=== PATIENT | female | born 1950 | race Caucasian/White ===

== ENCOUNTER 2019-05-08 09:38 | Emergency (ER) | payer BC, MEDICARE ==
--- NOTE | 2019-05-08 10:09 | ED ---
Female Urogenital HPI - General Chief complaint: Urogenital Stated complaint: possible UTI Time Seen by Provider: 05/08/19 10:07 Source: patient Mode of arrival: ambulatory Limitations: no limitations - Related Data Allergies Allergy/AdvReac Type Severity Reaction Status Date / Time Sulfa (Sulfonamide Allergy Swelling Verified 05/08/19 09:55 Antibiotics) Review of Systems ROS Statement: Those systems with pertinent positive or pertinent negative responses have been documented in the HPI. ROS Other: All systems not noted in ROS Statement are negative. Past Medical History Past Medical History: Cancer Additional Past Medical History / Comment(s): Chronic UTI, Breast CA History of Any Multi-Drug Resistant Organisms: None Reported Past Surgical History: Breast Surgery Past Psychological History: No Psychological Hx Reported Smoking Status: Never smoker Past Alcohol Use History: Rare Past Drug Use History: None Reported General Exam Limitations: no limitations Course Vital Signs 05/08/19 09:50 Temperature 97.8 F Pulse Rate 94 Respiratory 18 Rate Blood Pressure 143/73 O2 Sat by Pulse 98 Oximetry Disposition Referrals: Bridgette Chapman MD [Primary Care Provider] - 1-2 days
[2019-05-08] MEDS ORDERED: Acetaminophen-Codeine 300-30mg TAB PO STA (10:17)
--- NOTE | 2019-05-08 10:22 | ED ---
Female Urogenital HPI - General Chief complaint: Urogenital Stated complaint: possible UTI Time Seen by Provider: 05/08/19 10:07 Source: patient Mode of arrival: ambulatory Limitations: no limitations - History of Present Illness Initial comments: Patient is 69-year-old female with history of chronic UTIs presenting to emergency Department with a chief complaint of a possible UTI. 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 She states that she saw Dr. Mark recently who treated her for a vaginal yeast infection and said. Patient states that her symptoms have not resolved. Patient does report increased suprapubic pressure, increased frequency, urgency and dysuria. Denies any hematuria, hematochezia or melena. Patient states that she is looking for another surgical services assistant who would repair the possible fistula. Patient denies any night sweats fevers or chills. Does report taking ibuprofen at home with minimal approval for discomfort. Denies any nausea or vomiting diarrhea. - Related Data Previous Rx's Medication Instructions Recorded Cephalexin [Keflex] 500 mg PO Q6HR #40 cap 05/08/19 Allergies Allergy/AdvReac Type Severity Reaction Status Date / Time Sulfa (Sulfonamide Allergy Swelling Verified 05/08/19 09:55 Antibiotics) Review of Systems ROS Statement: Those systems with pertinent positive or pertinent negative responses have been documented in the HPI. ROS Other: All systems not noted in ROS Statement are negative. Past Medical History Past Medical History: Cancer Additional Past Medical History / Comment(s): Chronic UTI, Breast CA History of Any Multi-Drug Resistant Organisms: None Reported Past Surgical History: Breast Surgery Past Psychological History: No Psychological Hx Reported Smoking Status: Never smoker Past Alcohol Use History: Rare Past Drug Use History: None Reported General Exam Limitations: no limitations General appearance: alert, in no apparent distress Head exam: Present: atraumatic, normocephalic, normal inspection Eye exam: Present: normal appearance, PERRL, EOMI Pupils: Present: normal accommodation ENT exam: Present: normal exam, mucous membranes moist Neck exam: Present: normal inspection, full ROM Respiratory exam: Present: normal lung sounds bilaterally Cardiovascular Exam: Present: regular rate, normal rhythm, normal heart sounds GI/Abdominal exam: Present: soft, tenderness (Mild suprapubic tenderness). Absent: distended, guarding, rebound Extremities exam: Present: normal inspection, full ROM Back exam: Present: normal inspection, full ROM. Absent: CVA tenderness (R), CVA tenderness (L) Neurological exam: Present: alert, oriented X3 Psychiatric exam: Present: normal affect, normal mood Skin exam: Present: warm, dry, intact, normal color Course Vital Signs 05/08/19 09:50 Temperature 97.8 F Pulse Rate 94 Respiratory 18 Rate Blood Pressure 143/73 O2 Sat by Pulse 98 Oximetry Medical Decision Making - Medical Decision Making Patient is a 69-year-old female with history of recurrent UTIs presenting to the emergency department with a chief complaint of possible UTI. Patient does have urinary symptoms. On exam patient does have some suprapubic tenderness. No CVA tenderness. Urine shows positive nitrates, leukocyte esterase and white blood cells. Patient will be treated with a single dose of Rocephin and a 10 day course of Keflex. Patient is usually positive for E. coli. Urine culture pending. I do not suspect pyelonephritis. Patient most likely has urethritis or cystitis. Patient advised to follow-up with a scale clerk for the rectovaginal fistula. Strict return parameters were thoroughly discussed with patient was understanding and agreeable. Case discussed with physician. - Lab Data Lab Results 05/08/19 Range/Units 10:15 Urine Color Light Yellow Urine Appearance Turbid H (Clear) Urine pH 6.0 (5.0-8.0) Ur Specific [place] 1.024 (1.001-1.035) Urine Protein 1+ H (Negative) Urine Glucose (UA) 4+ H (Negative) Urine Ketones Trace H (Negative) Urine Blood Moderate H (Negative) Urine Nitrite Positive H (Negative) Urine Bilirubin Negative (Negative) Urine Urobilinogen <2.0 (<2.0) mg/dL Ur Leukocyte Esterase Large H (Negative) Urine RBC 71 H (0-5) /hpf Urine WBC >182 H (0-5) /hpf Urine WBC Clumps Many H (None) /hpf Urine Bacteria Occasional H (None) /hpf Urine Mucus Rare H (None) /hpf Disposition Clinical Impression: Urinary tract infection Disposition: HOME SELF-CARE Condition: Stable Instructions (If sedation given, give patient instructions): Urinary Tract Infection in Women (ED) Additional Instructions: Please take prescribed medication as directed. Please follow up primary care. Please return to emergency department if symptoms worsen. Prescriptions: Cephalexin [Keflex] 500 mg PO Q6HR #40 cap Is patient prescribed a controlled substance at d/c from ED?: No Referrals: Bridgette Chapman MD [Primary Care Provider] - 1-2 days Blue Meza MD [STAFF PHYSICIAN] - 1-2 days Time of Disposition: 11:32
[2019-05-08 11:06] LABS: Appearance,Urine Turbid (Clear); Bacteria,Urine Occasional /hpf; Bilirubin,Urine Negative (Negative); Blood,Urine Moderate (Negative); Color,Urine Light Yellow; Glucose,Urine (UA) 4+ (Negative); Ketones,Urine Trace (Negative); Leukocyte Esterase,Urine Large (Negative); Mucus,Urine Rare /hpf; Nitrite,Urine Positive (Negative); Protein,Urine 1+ (Negative); RBC,Urine 71 /hpf (0-5); Specific Gravity,Urine 1.024 (1.001-1.035); Urobilinogen,Urine <2.0 mg/dL (<2.0); WBC,Urine >182 /hpf (0-5)
[2019-05-08] MEDS ORDERED: cefTRIAXone 1,000 MG VIAL (IM USE) IM STA (11:30)
[2019-05-08 12:03] VITALS: BP 123/78; PULSE 77; RESP 19; TEMP 98.9
== END 2019-05-08 12:03 | disposition home or self-care (01) ==
LOC: EC 09:38
DX: N39.0 Urinary tract infection, site not specified (principal); Z88.2 Allergy status to sulfonamides; Z85.3 Personal history of malignant neoplasm of breast
CPT/HCPCS: 81001; 87086; 87077; 87186; 99283; 96372; J0696

== ENCOUNTER → 2019-06-24 | Outpatient (CLI) | payer MEDICARE ==
--- NOTE | 2019-06-24 14:04 | US ---
EXAMINATION TYPE: US thyroid st tissue head/neck DATE OF EXAM: 06/24/2019 COMPARISON: NONE CLINICAL HISTORY: E04.1 Nontoxic single thyroid nodule. GLAND SIZE: Right Lobe: 4.5 x 1.1 x1.4 cm Overall Parenchyma: homogenous Left Lobe: 4.7 x 1.7 x 2.0 cm Overall Parenchyma: homogeneous Isthmus Thickness: 0.4 cm NODULES RIGHT: # of nodules measured on right: 0 LEFT: # of nodules measured on left: 3 1. 2.3 X 1.5 x 1.8 cm hypoechoic mixed nodule at the lower pole with well-defined margins; . This nodule is wider than tall and shows intranodular vascularity. Prior size: no prior 2. 0.8 X 0.6 x 0.8 cm hypoechoic solid nodule at the lower pole with well-defined margins; present w ith microcalcifications. This nodule is wider than tall and shows intranodular vascularity. Prior size: no prior 3. 0.9 X 0.5 x 0.5 cm hypoechoic solid nodule at the lower pole with well-defined margins; . This n odule is wider than tall and shows intranodular vascularity. Prior size: no prior ISTHMUS: # of nodules measured in the isthmus: 0 Bilateral neck scanned, no evidence of lymphadenopathy. Nodules as described. IMPRESSION: 1. Large left lobe thyroid nodule. 2. Additional smaller subcentimeter nodules on the left
== END | disposition home or self-care (01) ==
LOC: RADUSWWP 13:38
PROVIDERS: ATTEND Nurse Practitioner
DX: E04.2 Nontoxic multinodular goiter (principal)
CPT/HCPCS: 76536

== ENCOUNTER 2019-07-16 20:05 | Emergency (ER) | payer MEDICARE ==
[2019-07-16 20:10] VITALS: TEMP 97.9
[2019-07-16] MEDS ORDERED: SODIUM CHLORIDE 0.9% 1,000 ML IV ONE (20:35)
[2019-07-16] MEDS ORDERED: ONDANSETRON 4 MG/2 ML VIAL IVP STA (20:41)
[2019-07-16] MEDS ORDERED: MORPHINE SULFATE 2 MG/ML SYRINGE IVP STA (20:41)
--- NOTE | 2019-07-16 20:42 | ED ---
General Adult HPI - General Chief complaint: Vaginal Bleeding Stated complaint: Vaginal Bleeding Time Seen by Provider: 07/16/19 20:16 Source: patient Mode of arrival: ambulatory Limitations: no limitations - History of Present Illness Initial comments: 69-year-old female patient presents to the emergency department today for evaluation of possible hematuria or vaginal bleeding. Patient has a known rectal vaginal fistula, states that she has had this for years but is recently started to cause her discomfort and pain to the vaginal region. Patient states that she hasn't working with the surgeon for possible resolution to this. She states that today she was taking a warm sitz bath when she noticed a blood clot had passed in the tub. States that whenever she urinates it is dark red in color and she is unsure where the bleeding is coming from. Patient states that she has had multiple urinary tract infections over the last year. States she is currently taking Keflex for a UTI. She denies any flank pain. Denies fever or chills. Denies any abdominal pain. Denies any use of anticoagulants or antiplatelet medications. Patient denies any recent rash, cough, shortness of breath, chest pain, diarrhea, constipation, numbness, tingling, dizziness, weakness, headache, visual changes, or any other complaints. - Related Data Previous Rx's Medication Instructions Recorded Cephalexin [Keflex] 500 mg PO Q6HR #40 cap 05/08/19 Ciprofloxacin HCl [Cipro] 500 mg PO Q12HR #20 tablet 07/17/19 Allergies Allergy/AdvReac Type Severity Reaction Status Date / Time Sulfa (Sulfonamide Allergy Swelling Verified 07/16/19 20:11 Antibiotics) Review of Systems ROS Statement: Those systems with pertinent positive or pertinent negative responses have been documented in the HPI. ROS Other: All systems not noted in ROS Statement are negative. Past Medical History Past Medical History: Cancer Additional Past Medical History / Comment(s): Chronic UTI, Breast CA History of Any Multi-Drug Resistant Organisms: None Reported Past Surgical History: Breast Surgery Past Psychological History: No Psychological Hx Reported Smoking Status: Never smoker Past Alcohol Use History: Rare Past Drug Use History: None Reported General Exam Limitations: no limitations General appearance: alert, in no apparent distress, other (This is a well- developed, well-nourished adult female patient in no acute distress. Vital signs upon presentation are temperature 97.9F, pulse 114, respirations 18, blood pressure 174/90, pulse ox 97% on room air.) Eye exam: Present: normal appearance, PERRL, EOMI. Absent: scleral icterus, conjunctival injection, periorbital swelling ENT exam: Present: normal exam, normal oropharynx, mucous membranes moist Respiratory exam: Present: normal lung sounds bilaterally. Absent: respiratory distress, wheezes, rales, rhonchi, stridor Cardiovascular Exam: Present: regular rate, normal rhythm, normal heart sounds. Absent: systolic murmur, diastolic murmur, rubs, gallop, clicks GI/Abdominal exam: Present: soft, normal bowel sounds. Absent: distended, tenderness, guarding, rebound, rigid Rectal exam: Present: normal inspection, tenderness. Absent: hemorrhoids External exam: Present: normal external exam Speculum exam: Present: other (Stool in the vaginal vault. ). Absent: vaginal bleeding Neurological exam: Present: alert, oriented X3, CN II-XII intact Psychiatric exam: Present: normal affect, normal mood Skin exam: Present: warm, dry, intact, normal color. Absent: rash Course Vital Signs 07/16/19 07/16/19 07/17/19 20:07 21:51 00:21 Temperature 97.9 F Pulse Rate 114 H 103 H 98 Respiratory 18 16 18 Rate Blood Pressure 174/90 159/91 119/97 O2 Sat by Pulse 97 96 97 Oximetry Medical Decision Making - Medical Decision Making 69-year-old female patient presents to the emergency department today for evaluation of possible vaginal bleeding. He has a known rectovaginal fistula for which she is receiving care from Dr. Lawson. Patient reports passing a blood clot and having bloody urine throughout the day. Physical examination reveals a soft nontender abdomen. Patient is reporting a pressure-type pain to the rectum and vaginal area. I did perform a rectal exam, no obvious porter blood noted. Vaginal exam showed no presence of blood but there was some stool in the vaginal vault. Labs reviewed and are relatively unremarkable. CT abdomen and pelvis with rectal contrast was obtained and showed a rectovaginal fistula at the mid vagina. There is also a filling defect in the left posterior bladder which could be a blood clot or a tumor. KUB x-ray with one view chest was obtained and showed a masslike density in the right upper lobe of the lung. Patient was informed of all results. She is instructed to follow up with her primary care physician for further evaluation regarding her general care as well as the masslike density in the right upper lobe. She is instructed to follow- up with urology for probable hemorrhagic cystitis but with possibility of a bladder tumor. She is instructed to follow-up with Dr. Chacko for further evaluation and repair of her rectovaginal fistula. We will start ciprofloxacin for hemorrhagic cystitis. She is instructed to return for any other new, worsening, or concerning symptoms - Lab Data Result diagrams: 07/16/19 21:15 07/16/19 21:15 Lab Results 07/16/19 07/16/19 07/16/19 Range/Units 21:15 21:15 21:15 WBC 8.8 (3.8-10.6) k/uL RBC 4.72 (3.80-5.40) m/uL Hgb 14.3 (11.4-16.0) gm/dL Hct 41.2 (34.0-46.0) % MCV 87.3 (80.0-100.0) fL MCH 30.4 (25.0-35.0) pg MCHC 34.8 (31.0-37.0) g/dL RDW 13.0 (11.5-15.5) % Plt Count 355 (150-450) k/uL Neutrophils % 75 % Lymphocytes % 18 % Monocytes % 5 % Eosinophils % 2 % Basophils % 0 % Neutrophils # 6.6 (1.3-7.7) k/uL Lymphocytes # 1.6 (1.0-4.8) k/uL Monocytes # 0.4 (0-1.0) k/uL Eosinophils # 0.1 (0-0.7) k/uL Basophils # 0.0 (0-0.2) k/uL PT 9.4 (9.0-12.0) sec INR 0.9 (<1.2) APTT 22.0 (22.0-30.0) sec Sodium (137-145) mmol/L Potassium (3.5-5.1) mmol/L Chloride (98-107) mmol/L Carbon Dioxide (22-30) mmol/L Anion Gap mmol/L BUN (7-17) mg/dL Creatinine (0.52-1.04) mg/dL Est GFR (CKD-EPI)AfAm (>60 ml/min/1.73 sqM) Est GFR (CKD-EPI)NonAf (>60 ml/min/1.73 sqM) Glucose (74-99) mg/dL Calcium (8.4-10.2) mg/dL Total Bilirubin (0.2-1.3) mg/dL AST (14-36) U/L ALT (4-34) U/L Alkaline Phosphatase (38-126) U/L Total Protein (6.3-8.2) g/dL Albumin (3.5-5.0) g/dL Urine Color Urine Appearance (Clear) Urine RBC (0-5) /hpf Urine WBC (0-5) /hpf Stool Occult Blood Positive H (Negative) 07/16/19 07/16/19 Range/Units 21:15 21:15 WBC (3.8-10.6) k/uL RBC (3.80-5.40) m/uL Hgb (11.4-16.0) gm/dL Hct (34.0-46.0) % MCV (80.0-100.0) fL MCH (25.0-35.0) pg MCHC (31.0-37.0) g/dL RDW (11.5-15.5) % Plt Count (150-450) k/uL Neutrophils % % Lymphocytes % % Monocytes % % Eosinophils % % Basophils % % Neutrophils # (1.3-7.7) k/uL Lymphocytes # (1.0-4.8) k/uL Monocytes # (0-1.0) k/uL Eosinophils # (0-0.7) k/uL Basophils # (0-0.2) k/uL PT (9.0-12.0) sec INR (<1.2) APTT (22.0-30.0) sec Sodium 141 (137-145) mmol/L Potassium 3.3 L (3.5-5.1) mmol/L Chloride 109 H (98-107) mmol/L Carbon Dioxide 21 L (22-30) mmol/L Anion Gap 11 mmol/L BUN 17 (7-17) mg/dL Creatinine 0.38 L (0.52-1.04) mg/dL Est GFR (CKD-EPI)AfAm >90 (>60 ml/min/1.73 sqM) Est GFR (CKD-EPI)NonAf >90 (>60 ml/min/1.73 sqM) Glucose 313 H (74-99) mg/dL Calcium 8.7 (8.4-10.2) mg/dL Total Bilirubin 0.5 (0.2-1.3) mg/dL AST 14 (14-36) U/L ALT 11 (4-34) U/L Alkaline Phosphatase 125 (38-126) U/L Total Protein 6.5 (6.3-8.2) g/dL Albumin 3.6 (3.5-5.0) g/dL Urine Color Red Urine Appearance Bloody H (Clear) Urine RBC >182 H (0-5) /hpf Urine WBC >182 H (0-5) /hpf Stool Occult Blood (Negative) - Radiology Data Radiology results: report reviewed, image reviewed Single view of the chest and 2 views of the abdomen are submitted. Report was reviewed in its entirety. Impression by Dr. Chacon shows mass density in the right upper lobe with superimposed complex. This may be postsurgical in nature. Mass is not excluded. CT abdomen and pelvis with contrast was obtained. Report was reviewed in its entirety. Impression by Dr. Chacon shows exam demonstrates rectovaginal fistula the posterior wall the mid vagina. No vaginal or rectal masses identified. There is irregular filling defect in the posterior left side of the urinary bladder. Follow-up is recommended. There is a possibility of a bladder tumor. This could also be a bladder blood clot. Disposition Clinical Impression: Hemorrhagic cystitis, Bladder mass, Mass of right lung, Rectovaginal fistula Disposition: HOME SELF-CARE Condition: Good Instructions (If sedation given, give patient instructions): Urinary Tract Infection in Women (ED) Additional Instructions: Complete antibiotic prescription in full. Follow up with urologist for further evaluation of possible bladder mass. Follow up with Dr. Lawson for further evaluation of your rectovaginal fistula. Follow up with your primary care physician for further evaluation and monitoring. Please have your physician investigate your possible right lung mass. Return to the emergency department immediately for any new, worsening, or concerning symptoms. Prescriptions: Ciprofloxacin HCl [Cipro] 500 mg PO Q12HR #20 tablet Is patient prescribed a controlled substance at d/c from ED?: No Referrals: Bridgette Chapman MD [Primary Care Provider] - 1-2 days Erik Rodriguez MD [STAFF PHYSICIAN] - 1-2 days Daija Lawson MD [STAFF PHYSICIAN] - 1-2 days Time of Disposition: 00:38
[2019-07-16 21:19] LABS: Basophils % (A) 0 %; Eosinophils # (A) 0.1 k/uL (0-0.7); Eosinophils % (A) 2 %; HCT 41.2 % (34.0-46.0); HGB 14.3 gm/dL (11.4-16.0); Lymphocytes # (A) 1.6 k/uL (1.0-4.8); Lymphocytes % (A) 18 %; MCH 30.4 pg (25.0-35.0); MCHC 34.8 g/dL (31.0-37.0); MCV 87.3 fL (80.0-100.0); Monocytes # (A) 0.4 k/uL (0-1.0); Monocytes % (A) 5 %; Neutrophils # (A) 6.6 k/uL (1.3-7.7); Neutrophils % (A) 75 %; Platelet Count 355 k/uL (150-450); RBC 4.72 m/uL (3.80-5.40); WBC 8.8 k/uL (3.8-10.6)
[2019-07-16 21:23] LABS: RBC,Urine >182 /hpf (0-5); WBC,Urine >182 /hpf (0-5)
[2019-07-16 21:24] LABS: Appearance,Urine Bloody (Clear); Color,Urine Red
[2019-07-16 21:28] LABS: ALT 11 U/L (4-34); AST 14 U/L (14-36); African American GFR (CKD) >90 (>60 ml/min/1.73 sqM); Albumin 3.6 g/dL (3.5-5.0); Alkaline Phosphatase 125 U/L (38-126); Anion Gap 11 mmol/L; Blood Urea Nitrogen 17 mg/dL (7-17); Calcium 8.7 mg/dL (8.4-10.2); Carbon Dioxide 21 mmol/L (22-30); Chloride 109 mmol/L (98-107); Glucose 313 mg/dL (74-99); Non-African American GFR(CKD) >90 (>60 ml/min/1.73 sqM); Potassium 3.3 mmol/L (3.5-5.1); Sodium 141 mmol/L (137-145); Total Bilirubin 0.5 mg/dL (0.2-1.3); Total Protein 6.5 g/dL (6.3-8.2)
[2019-07-16 21:30] LABS: INR 0.9 (<1.2); Prothrombin Time 9.4 sec (9.0-12.0)
--- NOTE | 2019-07-16 21:41 | XR ---
EXAMINATION TYPE: XR abdomen acute w cxr DATE OF EXAM: 07/16/2019 COMPARISON: NONE HISTORY: Pain TECHNIQUE: Single view of the chest and 2 views of the abdomen are submitted. FINDINGS: Single view of the chest demonstrates mass density within the right upper lobe with superimposed comp mt. This may be postsurgical in nature. Mass is not excluded. The remainder of the lungs are clear. There is no evidence for pneumoperitoneum. The bowel gas pattern is unremarkable as there is air throughout nondilated small and large bowel. No sizeable air fluid levels.No mass effects are seen. No unusual calcifications. Pelvic phleboliths noted. IMPRESSION: 1. mass density within the right upper lobe with superimposed complex. This may be postsurgical in n ature. Mass is not excluded.
[2019-07-16] MEDS ORDERED: MORPHINE SULFATE 4 MG/ML SYRINGE IVP STA (21:59)
[2019-07-17] MEDS ORDERED: HYDROmorphone 0.5 MG/0.5 ML SYRINGE IVP STA (00:11)
--- NOTE | 2019-07-17 00:16 | CT ---
EXAMINATION TYPE: CT abdomen pelvis w con DATE OF EXAM: 07/16/2019 COMPARISON: Rectovaginal fistula. Rectal pain HISTORY: r/o fistula CT DLP: 906.2 mGycm Automated exposure control for dose reduction was used. CONTRAST: Performed with IV Contrast, patient injected with 100 mL of Isovue 300. There is rectal contrast. Lung bases are clear. There is no pleural effusion. Heart size is normal. There is no pericardial eff usion. Liver spleen stomach pancreas gallbladder appear normal. Bile ducts are not dilated. There is no adrenal mass. Kidneys show satisfactory contrast opacification. There is no hydronephrosi s. There is 2 cm cortical cyst lateral left kidney. Ureters are not dilated. There is no retroperiton eal adenopathy. Bladder shows some wall thickening on the posterior left lateral aspect. There is peng ling defect in the urinary bladder on the left side on the delayed contrast images. There is contrast in the rectum and the contrast appears to flow freely into the vagina and into the vaginal vault. The fistula is at the mid vagina. Uterus has normal size and contour. There is no evidence of a pelvic mass. Appendix appears normal. T here is no mesenteric edema. There is no ascites or free air. There is no sign of a bowel obstruction . The lumbar vertebra show normal spacing and alignment. There is no compression fracture. Bony pelvi s is intact. IMPRESSION: Exam demonstrates rectovaginal fistula at the posterior wall of the mid vagina. No vaginal or rectal mass identified. There is irregular filling defect in the posterior left side urinary bladder. Follow-up recommended. The possibility of bladder tumor should be considered. This could also be bladder blood clot.
[2019-07-17 00:22] VITALS: BP 119/97; PULSE 98; RESP 18
[2019-07-17] MEDS ORDERED: cefTRIAXone IN SWFI 1,000 MG/10 ML SYRINGE IVP STA (00:35)
[2019-07-17] MEDS ORDERED: ACET/COD 300 MG/30 MG STARTER PACK 6 TAB BTL PO STA (00:40)
[2019-07-17] MEDS ORDERED: IBUPROFEN 600 MG STARTER PACK 4 TAB BTL PO STA (00:40)
[2019-07-17] MEDS ORDERED: POTASSIUM CHLORIDE ER 20 MEQ TAB.ER PO STA (00:43)
== END 2019-07-17 00:58 | disposition home or self-care (01) ==
LOC: EC 20:05
DX: N82.3 Fistula of vagina to large intestine (principal); N32.89 Other specified disorders of bladder; N30.90 Cystitis, unspecified without hematuria; R91.8 Other nonspecific abnormal finding of lung field; Z88.2 Allergy status to sulfonamides; Z85.3 Personal history of malignant neoplasm of breast; Z98.890 Other specified postprocedural states; Z87.440 Personal history of urinary (tract) infections
CPT/HCPCS: 99284; 96374; 96375 ×3; 96376; 96361 ×3; 36415; 80053; 85025; 85610; 85730; 82272; 81001; 87086; 74022; 74177; J2270 ×2; J2405; Q9967 ×2

== ENCOUNTER 2019-07-26 18:26 | Emergency (ER) | payer MEDICARE ==
[2019-07-26 18:32] VITALS: BP 143/88; PULSE 103; TEMP 98.3
[2019-07-26 18:54] VITALS: RESP 16
[2019-07-26] MEDS ORDERED: MORPHINE SULFATE 4 MG/ML SYRINGE IM STA (18:58)
[2019-07-26] MEDS ORDERED: KETOROLAC 30 MG/ML 1 ML VIAL IM STA (18:58)
--- NOTE | 2019-07-26 19:14 | ED ---
General Adult HPI - General Chief complaint: Recheck/Abnormal Lab/Rx Stated complaint: pain-revisit Time Seen by Provider: 07/26/19 18:33 Source: patient, RN notes reviewed, old records reviewed Mode of arrival: ambulatory Limitations: no limitations - History of Present Illness Initial comments: 69-year-old female presented for reevaluation of rectovaginal fistula. Patient was recently admitted with pain, UTI. 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 She has recurrent UTIs. She is having increasing pain which is the same pain she has had at her recent admission. At that time she was seen by general surgery she has plan for surgical repair however all surgical procedures currently have been canceled if they are not an emergency due to the whit virus. Neck. She has an appointment with urology in 2 days. She is currently on tramadol, Tylenol 3, and Cipro for urinary tract infection, although she is only taken one dose of the ciprofloxacin because she was not aware this was an antibiotic and thought it was for pain. She states she had a fever earlier in the week but has been afebrile for the past several days. Her pain is in her va caitlyn. She is reporting persistent dysuria and hematuria. - Related Data Previous Rx's Medication Instructions Recorded Cephalexin [Keflex] 500 mg PO Q6HR #40 cap 05/08/19 Ciprofloxacin HCl [Cipro] 500 mg PO Q12HR #20 tablet 07/17/19 Cephalexin [Keflex] 500 mg PO Q6HR 10 Days #40 cap 07/26/19 HYDROcodone/APAP 5-325MG [[place] 1 tab PO Q4HR PRN 3 Days #18 tab 07/26/19 5-325] Ibuprofen [Motrin] 400 mg PO Q8HR PRN 10 Days #30 tab 07/26/19 Allergies Allergy/AdvReac Type Severity Reaction Status Date / Time Sulfa (Sulfonamide Allergy Swelling Verified 07/26/19 18:32 Antibiotics) Review of Systems ROS Statement: Those systems with pertinent positive or pertinent negative responses have been documented in the HPI. ROS Other: All systems not noted in ROS Statement are negative. Past Medical History Past Medical History: Cancer Additional Past Medical History / Comment(s): Chronic UTI, Breast CA, fistula History of Any Multi-Drug Resistant Organisms: None Reported Past Surgical History: Breast Surgery Past Psychological History: No Psychological Hx Reported Smoking Status: Never smoker Past Alcohol Use History: Rare Past Drug Use History: None Reported General Exam Limitations: no limitations General appearance: alert, in no apparent distress Head exam: Present: atraumatic, normocephalic Eye exam: Present: normal appearance, PERRL ENT exam: Present: normal exam, mucous membranes moist Neck exam: Present: normal inspection. Absent: tenderness Respiratory exam: Present: normal lung sounds bilaterally. Absent: respiratory distress, wheezes Cardiovascular Exam: Present: regular rate, normal rhythm GI/Abdominal exam: Present: soft. Absent: distended, tenderness, guarding Extremities exam: Present: normal inspection, normal capillary refill Neurological exam: Present: alert, oriented X3, CN II-XII intact. Absent: motor sensory deficit Psychiatric exam: Present: normal affect, normal mood Skin exam: Present: warm, dry, intact. Absent: cyanosis, diaphoretic Course Vital Signs 07/26/19 07/26/19 18:27 18:54 Temperature 98.3 F Pulse Rate 103 H Respiratory 18 16 Rate Blood Pressure 143/88 O2 Sat by Pulse 99 Oximetry - Reevaluation(s) Reevaluation #1: 07/26/19 19:01 Patient stating pain is baseline that she's had previously, does not feel pelvic exam would reveal any abnormalities and is declining pelvic at this time. Medical Decision Making - Medical Decision Making 72-year-old female presenting for vaginal pain with known history of rectovaginal fistula as well as dysuria and hematuria. Patient is well- appearing with stable vitals. She is declining pelvic exam at this time because she states the pain is unchanged in character and she does not feel there is any new or changing issues. She has been using Desitin as a barrier cream. Repeat urinalysis and urine culture are obtained. Consistent with hemorrhagic cystitis and UTI. Previous urine culture was E. coli sensitive to cephalosporins. She is started on Keflex. She is prescribed [place] for better pain control. She is told to discontinue her tramadol and Tylenol 3 well she is taking the [place]. She will take [id number] Motrin in addition for pain control. She will maintain her appointment with urology in the next 2 days. She has established care with general surgery and will continue to follow their recommendations. - Lab Data Lab Results 07/26/19 Range/Units 18:55 Urine Color Light Red Urine Appearance Cloudy H (Clear) Urine pH 6.0 (5.0-8.0) Ur Specific [place] 1.029 (1.001-1.035) Urine Protein 1+ H (Negative) Urine Glucose (UA) 4+ H (Negative) Urine Ketones 1+ H (Negative) Urine Blood Large H (Negative) Urine Nitrite Negative (Negative) Urine Bilirubin Negative (Negative) Urine Urobilinogen <2.0 (<2.0) mg/dL Ur Leukocyte Esterase Large H (Negative) Urine RBC >182 H (0-5) /hpf Urine WBC >182 H (0-5) /hpf Urine WBC Clumps Few H (None) /hpf Ur Squamous Epith Cells 4 (0-4) /hpf Urine Bacteria Rare H (None) /hpf Disposition Clinical Impression: Rectovaginal fistula, Hemorrhagic cystitis, UTI (urinary tract infection) Disposition: HOME SELF-CARE Condition: Good Instructions (If sedation given, give patient instructions): Urinary Tract Infection in Women (ED), Gastrointestinal Fistula (DC) Prescriptions: Cephalexin [Keflex] 500 mg PO Q6HR 10 Days #40 cap Ibuprofen [Motrin] 400 mg PO Q8HR PRN 10 Days #30 tab PRN Reason: Pain HYDROcodone/APAP 5-325MG [[place] 5-325] 1 tab PO Q4HR PRN 3 Days #18 tab PRN Reason: Severe Pain Is patient prescribed a controlled substance at d/c from ED?: No Referrals: Bridgette Chapman MD [Primary Care Provider] - 1-2 days Erik Rodriguez MD [STAFF PHYSICIAN] - 1-2 days Daija Lawson MD [STAFF PHYSICIAN] - 1-2 days Time of Disposition: 19:07
[2019-07-26 19:16] LABS: Appearance,Urine Cloudy (Clear); Bacteria,Urine Rare /hpf; Bilirubin,Urine Negative (Negative); Blood,Urine Large (Negative); Color,Urine Light Red; Glucose,Urine (UA) 4+ (Negative); Ketones,Urine 1+ (Negative); Leukocyte Esterase,Urine Large (Negative); Nitrite,Urine Negative (Negative); Protein,Urine 1+ (Negative); RBC,Urine >182 /hpf (0-5); Specific Gravity,Urine 1.029 (1.001-1.035); Squamous Epithelial Cell,Urine 4 /hpf (0-4); Urobilinogen,Urine <2.0 mg/dL (<2.0); WBC,Urine >182 /hpf (0-5)
== END 2019-07-26 19:25 | disposition home or self-care (01) ==
LOC: EC 18:26
DX: N82.3 Fistula of vagina to large intestine (principal); N30.91 Cystitis, unspecified with hematuria; Z88.2 Allergy status to sulfonamides; Z85.3 Personal history of malignant neoplasm of breast; Z98.890 Other specified postprocedural states; Z87.440 Personal history of urinary (tract) infections
CPT/HCPCS: 81001; 87086; 99284; 96372 ×2; J2270; J1885; 87077; 87186

== ENCOUNTER → 2019-08-08 | Outpatient (CLI) | payer MEDICARE ==
--- NOTE | 2019-08-11 09:19 | PE ---
EXAMINATION TYPE: PET CT fusion skull to thigh DATE OF EXAM: 08/08/2019 COMPARISON: CT abdomen and pelvis July 16, 2019. HISTORY: Solitary pulmonary nodule. Abnormal recent chest x-ray. History of right-sided breast cance r in 1991. TECHNIQUE: Following the intravenous administration of 12.7 mCi of F-18 FDG, whole body images are p erformed from the skull base to the midthigh. Images are reviewed on the computer in the coronal, ax ial, and sagittal planes. Reconstructed rotating images are created on independent workstation and r eviewed on the computer. A noncontrast CT is performed in conjunction with the PET scan. SCAN: Initial Scan FINDINGS: SKULL BASE AND NECK: No areas of suspicious hypermetabolic uptake. There is roughly 1.5 cm left thyr oid nodule axial image 59 that warrants follow-up if this is not known finding. CHEST, MEDIASTINUM, AND HILAR REGION: No suspicious hypermetabolic uptake in either lung field. Surgi guero changes from right-sided mastectomy and axillary lymph node dissection. In the lower right anteri or chest wall there is abnormal soft tissue thickening with hypermetabolic uptake near the anterior f ourth rib axial image 98, max SUV is 2.81 corresponding to nearby area of slightly expanded lytic les ion axial image 96 worrisome for osseous metastatic lesion with adjacent soft tissue focus. This may be corresponding 2 area of x-ray abnormality. Right pectoralis muscle is asymmetrically thicker versu s left. There is asymmetric tiny right pleural effusion. No suspicious hypermetabolic uptake in the l eft breast or axilla. ABDOMEN AND PELVIS: Normal excretion is seen. No areas of suspicious hypermetabolic uptake. No suspic ious bowel uptake noted. OSSEOUS STRUCTURES: No areas of suspicious hypermetabolic uptake. OTHER CT: Mild underlying emphysematous change. There is 7 x 4 mm nodule or nodular density right upp er lobe axial image 77. This is a metabolic. Appropriate CT imaging follow-up advised 6-12 months pham e to document stability for subcentimeter nodule. Scattered pelvic phleboliths. Anteverted uterus. Facet arthropathy lower lumbar spine. Mild eccentric wall thickening along the posterior bladder wall increased to the left is redemonstrated correspondi ng to recent CT. Urology follow-up is noted. IMPRESSION: Possible new right anterior rib osseous lytic metastatic lesion. Consider sampling, it is noted no definitive additional lytic or hypermetabolic osseous lesions are present. Short-term follo w-up CT in 6-12 months time for the 7 x 4 mm right upper lung nodule or nodular density. There is 1.5 cm left thyroid nodule. Thyroid ultrasound follow-up advised if this is not known finding.
== END | disposition home or self-care (01) ==
LOC: RADPETMAIN 11:24
PROVIDERS: ATTEND Family Medicine
DX: R91.1 Solitary pulmonary nodule (principal); E04.1 Nontoxic single thyroid nodule; Z90.11 Acquired absence of right breast and nipple
CPT/HCPCS: 78815; A9552

== ENCOUNTER 2019-08-18 06:13 | Inpatient (IN) | payer MEDICARE ==
[2019-08-18 06:39] LABS: Glucose,Whole Blood 337 mg/dL (75-99)
[2019-08-18 06:48] LABS: Basophils % (A) 0 %; Eosinophils # (A) 0.1 k/uL (0-0.7); Eosinophils % (A) 1 %; HCT 36.5 % (34.0-46.0); HGB 12.5 gm/dL (11.4-16.0); Lymphocytes # (A) 0.5 k/uL (1.0-4.8); Lymphocytes % (A) 7 %; MCH 30.6 pg (25.0-35.0); MCHC 34.2 g/dL (31.0-37.0); MCV 89.5 fL (80.0-100.0); Mean Platelet Volume 7.1; Monocytes # (A) 0.3 k/uL (0-1.0); Monocytes % (A) 4 %; Neutrophils # (A) 6.8 k/uL (1.3-7.7); Neutrophils % (A) 87 %; Platelet Count 191 k/uL (150-450); RBC 4.08 m/uL (3.80-5.40); RDW 12.8 % (11.5-15.5); WBC 7.8 k/uL (3.8-10.6)
[2019-08-18 06:59] LABS: Appearance,Urine Cloudy (Clear); Bacteria,Urine Rare /hpf; Bilirubin,Urine Negative (Negative); Blood,Urine Moderate (Negative); Color,Urine Colorless; Glucose,Urine (UA) 4+ (Negative); Leukocyte Esterase,Urine Large (Negative); Mucus,Urine Rare /hpf; Nitrite,Urine Positive (Negative); PH, Urine 5.5 (5.0-8.0); Protein,Urine Trace (Negative); RBC,Urine 46 /hpf (0-5); Specific Gravity,Urine 1.018 (1.001-1.035); Squamous Epithelial Cell,Urine <1 /hpf (0-4); Urobilinogen,Urine <2.0 mg/dL (<2.0); WBC,Urine >182 /hpf (0-5)
--- NOTE | 2019-08-18 07:09 | ED ---
General Adult HPI - General Chief complaint: Recheck/Abnormal Lab/Rx Stated complaint: DKA, Sepsis, UTI Time Seen by Provider: 08/18/19 06:17 Source: patient, EMS, RN notes reviewed, old records reviewed Mode of arrival: EMS Limitations: no limitations - History of Present Illness Initial comments: 69-year-old female patient with past medical history significant for chronic urinary tract infections, history of breast cancer, history of rectovaginal fistula is a transfer from [facility] with some for diabetic ketoacidosis. Patient reportedly presents to the [facility] with symptoms of fevers tachycardia. At that time she was found to have urinary tract infection, diabetic ketoacidosis. Patient was initiated on IV fluids. Reportedly had 3 L [facility]. However due to approximately near 3.3 were unable to began insulin previously. Patient was initiated on Zosyn and given 1 g of IV vancomycin, central line was placed. She was transferred to this facility for further evaluation. Upon evaluation of patient patient states that she does have some vaginal burning and feels tired however denies any other acute complaints. Systemic: Pt denies fatigue, fever/chills, rash. Pt denies weakness, night sweats, weight loss. Neuro: Pt denies headache, visual disturbances, syncope or pre-syncope. HEENT: Pt denies ocular discharge or irritation, otalgia, rhinorrhea, pharyngitis or notable lymphadenopathy. Cardiopulmonary: Pt denies chest pain, SOB, heart palpitations, dyspnea on exertion. Abdominal/GI: Pt denies abdominal pain, n/v/d. : Pt denies burning w/ urination, frequency/urgency. Denies new onset urinary or bowel incontinence. MSK: Pt denies myalgia, loss of strength or function in extremities. Neuro: Pt denies new onset weakness, paresthesias. - Related Data Previous Rx's Medication Instructions Recorded Cephalexin [Keflex] 500 mg PO Q6HR #40 cap 05/08/19 Ciprofloxacin HCl [Cipro] 500 mg PO Q12HR #20 tablet 07/17/19 Cephalexin [Keflex] 500 mg PO Q6HR 10 Days #40 cap 07/26/19 HYDROcodone/APAP 5-325MG [[place] 1 tab PO Q4HR PRN 3 Days #18 tab 07/26/19 5-325] Ibuprofen [Motrin] 400 mg PO Q8HR PRN 10 Days #30 tab 07/26/19 Allergies Allergy/AdvReac Type Severity Reaction Status Date / Time Sulfa (Sulfonamide Allergy Swelling Verified 07/26/19 18:32 Antibiotics) Review of Systems ROS Statement: Those systems with pertinent positive or pertinent negative responses have been documented in the HPI. ROS Other: All systems not noted in ROS Statement are negative. Past Medical History Past Medical History: Cancer Additional Past Medical History / Comment(s): Chronic UTI, Breast CA, fistula History of Any Multi-Drug Resistant Organisms: None Reported Past Surgical History: Breast Surgery, Orthopedic Surgery Past Psychological History: No Psychological Hx Reported Smoking Status: Never smoker Past Alcohol Use History: Rare Past Drug Use History: None Reported General Exam - General Exam Comments Initial Comments: Constitutional: NAD, AOX3, Pt has pleasant affect. HEENT: NC/AT, trachea midline, neck supple, no lymphadenopathy. Posterior pharynx non erythematous, without exudates. External ears appear normal, without discharge. Mucous membranes moist. Eyes PERRLA, EOM intact. There is no scleral icterus. No pallor noted. Cardiopulmonary: RRR, no murmurs, rubs or gallops, no JVD noted. Lungs CTAB in anterior and posterior chen. No peripheral edema. Abdominal exam: Abdomen soft and non-distended. Abdomen non-tender to palpation in all 4 quadrants. Bowel sounds active in LLQ. No hepatosplenomegaly. No ecchy mosis Neuro: CN II-XII grossly intact. No nuchal rigidity. No raccon eyes, no boone sign, no hemotympanum. No cervical spinal tenderness. MSK: No posterior calf tenderness bilaterally, homans sign negative bilaterally. Posterior tibialis and radial pulse +2 bilaterally. Sensation intact in upper a nd lower extremities. Full active ROM in upper and lower extremities, 5/5 stregnth. Limitations: no limitations Course Vital Signs 08/18/19 08/18/19 06:25 06:44 Temperature 98.1 F Pulse Rate 101 H Pulse Rate [ 105 H Electronics Supervisor ] Respiratory 18 Rate Blood Pressure 126/71 O2 Sat by Pulse 95 Oximetry Medical Decision Making - Medical Decision Making 69-year-old female patient with past medical history significant for chronic urinary tract infections, history of breast cancer, history of rectovaginal fistula is a transfer from [facility] with some for diabetic ketoacidosis. Patient reportedly presents to the [facility] with symptoms of fevers tachycardia. At that time she was found to have urinary tract infection, diabetic ketoacidosis. Patient was initiated on IV fluids. Reportedly had 3 L [facility]. However due to approximately near 3.3 were unable to began insulin previously. Patient was initiated on Zosyn and given 1 g of IV vancomycin, central line was placed. She was transferred to this facility for further evaluation. Upon evaluation of patient patient states that she does hav e some vaginal burning and feels tired however denies any other acute complaints. Patient also had slight mild tachycardia at 101, otherwise stable. Physical exam did not display acute pathology. Laboratory investigations were repeated, anion gap of 12, co2 of 17, hyperglycemia of 337, ua displayed nitrite positive urine, acetone is positive, coronavirus is negative. CXR did not display acute process. EKG displayed sinus tachycardia. Patient initiated on insulin drip, IV fluids, patient was continued on Zosyn and vancomycin pending culture. Blood cultures were obtained a previous facility. Patient will be admitted for urosepsis, DKA. Case discussed and pt seen by Dr. Gamez. - Lab Data Result diagrams: 08/18/19 06:38 08/18/19 06:38 Lab Results 08/18/19 08/18/19 08/18/19 Range/Units 06:37 06:38 06:38 WBC 7.8 (3.8-10.6) k/uL RBC 4.08 (3.80-5.40) m/uL Hgb 12.5 (11.4-16.0) gm/dL Hct 36.5 (34.0-46.0) % MCV 89.5 (80.0-100.0) fL MCH 30.6 (25.0-35.0) pg MCHC 34.2 (31.0-37.0) g/dL RDW 12.8 (11.5-15.5) % Plt Count 191 (150-450) k/uL Neutrophils % 87 % Lymphocytes % 7 % Monocytes % 4 % Eosinophils % 1 % Basophils % 0 % Neutrophils # 6.8 (1.3-7.7) k/uL Lymphocytes # 0.5 L (1.0-4.8) k/uL Monocytes # 0.3 (0-1.0) k/uL Eosinophils # 0.1 (0-0.7) k/uL Basophils # 0.0 (0-0.2) k/uL Sodium (137-145) mmol/L Potassium (3.5-5.1) mmol/L Chloride (98-107) mmol/L Carbon Dioxide (22-30) mmol/L Anion Gap mmol/L BUN (7-17) mg/dL Creatinine (0.52-1.04) mg/dL Est GFR (CKD-EPI)AfAm (>60 ml/min/1.73 sqM) Est GFR (CKD-EPI)NonAf (>60 ml/min/1.73 sqM) Glucose (74-99) mg/dL POC Glucose (mg/dL) 337 H (75-99) mg/dL POC Glu Senior Mechanical Engineer ID [place], [place] Plasma Lactic Acid Yamil (0.7-2.0) mmol/L Calcium (8.4-10.2) mg/dL Total Bilirubin (0.2-1.3) mg/dL AST (14-36) U/L ALT (4-34) U/L Alkaline Phosphatase (38-126) U/L Total Protein (6.3-8.2) g/dL Albumin (3.5-5.0) g/dL Urine Color Colorless Urine Appearance Cloudy H (Clear) Urine pH 5.5 (5.0-8.0) Ur Specific [place] 1.018 (1.001-1.035) Urine Protein Trace H (Negative) Urine Glucose (UA) 4+ H (Negative) Urine Ketones 2+ H (Negative) Urine Blood Moderate H (Negative) Urine Nitrite Positive H (Negative) Urine Bilirubin Negative (Negative) Urine Urobilinogen <2.0 (<2.0) mg/dL Ur Leukocyte Esterase Large H (Negative) Urine RBC 46 H (0-5) /hpf Urine WBC >182 H (0-5) /hpf Urine WBC Clumps Few H (None) /hpf Ur Squamous Epith Cells <1 (0-4) /hpf Urine Bacteria Rare H (None) /hpf Urine Mucus Rare H (None) /hpf Acetone, Qual (Negative) Coronavirus (PCR) (Not Detectd) 08/18/19 08/18/19 08/18/19 Range/Units 06:38 06:38 06:38 WBC (3.8-10.6) k/uL RBC (3.80-5.40) m/uL Hgb (11.4-16.0) gm/dL Hct (34.0-46.0) % MCV (80.0-100.0) fL MCH (25.0-35.0) pg MCHC (31.0-37.0) g/dL RDW (11.5-15.5) % Plt Count (150-450) k/uL Neutrophils % % Lymphocytes % % Monocytes % % Eosinophils % % Basophils % % Neutrophils # (1.3-7.7) k/uL Lymphocytes # (1.0-4.8) k/uL Monocytes # (0-1.0) k/uL Eosinophils # (0-0.7) k/uL Basophils # (0-0.2) k/uL Sodium 135 L (137-145) mmol/L Potassium 4.2 (3.5-5.1) mmol/L Chloride 106 (98-107) mmol/L Carbon Dioxide 17 L (22-30) mmol/L Anion Gap 12 mmol/L BUN 11 (7-17) mg/dL Creatinine 0.43 L (0.52-1.04) mg/dL Est GFR (CKD-EPI)AfAm >90 (>60 ml/min/1.73 sqM) Est GFR (CKD-EPI)NonAf >90 (>60 ml/min/1.73 sqM) Glucose 329 H (74-99) mg/dL POC Glucose (mg/dL) (75-99) mg/dL POC Glu Senior Mechanical Engineer ID Plasma Lactic Acid Yamil 1.0 (0.7-2.0) mmol/L Calcium 7.7 L (8.4-10.2) mg/dL Total Bilirubin 0.6 (0.2-1.3) mg/dL AST 11 L (14-36) U/L ALT 7 (4-34) U/L Alkaline Phosphatase 112 (38-126) U/L Total Protein 5.8 L (6.3-8.2) g/dL Albumin 2.9 L (3.5-5.0) g/dL Urine Color Urine Appearance (Clear) Urine pH (5.0-8.0) Ur Specific [place] (1.001-1.035) Urine Protein (Negative) Urine Glucose (UA) (Negative) Urine Ketones (Negative) Urine Blood (Negative) Urine Nitrite (Negative) Urine Bilirubin (Negative) Urine Urobilinogen (<2.0) mg/dL Ur Leukocyte Esterase (Negative) Urine RBC (0-5) /hpf Urine WBC (0-5) /hpf Urine WBC Clumps (None) /hpf Ur Squamous Epith Cells (0-4) /hpf Urine Bacteria (None) /hpf Urine Mucus (None) /hpf Acetone, Qual Positive (Negative) Coronavirus (PCR) Not Detected (Not Detectd) 08/18/19 Range/Units 07:55 WBC (3.8-10.6) k/uL RBC (3.80-5.40) m/uL Hgb (11.4-16.0) gm/dL Hct (34.0-46.0) % MCV (80.0-100.0) fL MCH (25.0-35.0) pg MCHC (31.0-37.0) g/dL RDW (11.5-15.5) % Plt Count (150-450) k/uL Neutrophils % % Lymphocytes % % Monocytes % % Eosinophils % % Basophils % % Neutrophils # (1.3-7.7) k/uL Lymphocytes # (1.0-4.8) k/uL Monocytes # (0-1.0) k/uL Eosinophils # (0-0.7) k/uL Basophils # (0-0.2) k/uL Sodium (137-145) mmol/L Potassium (3.5-5.1) mmol/L Chloride (98-107) mmol/L Carbon Dioxide (22-30) mmol/L Anion Gap mmol/L BUN (7-17) mg/dL Creatinine (0.52-1.04) mg/dL Est GFR (CKD-EPI)AfAm (>60 ml/min/1.73 sqM) Est GFR (CKD-EPI)NonAf (>60 ml/min/1.73 sqM) Glucose (74-99) mg/dL POC Glucose (mg/dL) 291 H (75-99) mg/dL POC Glu Senior Mechanical Engineer ID Betsy Simental Plasma Lactic Acid Yamil (0.7-2.0) mmol/L Calcium (8.4-10.2) mg/dL Total Bilirubin (0.2-1.3) mg/dL AST (14-36) U/L ALT (4-34) U/L Alkaline Phosphatase (38-126) U/L Total Protein (6.3-8.2) g/dL Albumin (3.5-5.0) g/dL Urine Color Urine Appearance (Clear) Urine pH (5.0-8.0) Ur Specific [place] (1.001-1.035) Urine Protein (Negative) Urine Glucose (UA) (Negative) Urine Ketones (Negative) Urine Blood (Negative) Urine Nitrite (Negative) Urine Bilirubin (Negative) Urine Urobilinogen (<2.0) mg/dL Ur Leukocyte Esterase (Negative) Urine RBC (0-5) /hpf Urine WBC (0-5) /hpf Urine WBC Clumps (None) /hpf Ur Squamous Epith Cells (0-4) /hpf Urine Bacteria (None) /hpf Urine Mucus (None) /hpf Acetone, Qual (Negative) Coronavirus (PCR) (Not Detectd) - EKG Data -: EKG Interpreted by Me (and Dr. Gamez ) EKG Comments: Ventricular rate 105,. She'll 138, QRS 96, QT/QTC 362/478. Sinus tachycardia, possible septal infarct age undetermined, abnormal EKG. No concern for acute ischemia at this time. Disposition Clinical Impression: DKA (diabetic ketoacidoses), Sepsis, UTI (urinary tract infection) Disposition: ADMITTED IP TO THIS HOSP Condition: Serious Is patient prescribed a controlled substance at d/c from ED?: No Referrals: Bridgette Chapman MD [Primary Care Provider] - 1-2 days
[2019-08-18 07:27] LABS: ALT 7 U/L (4-34); AST 11 U/L (14-36); African American GFR (CKD) >90 (>60 ml/min/1.73 sqM); Albumin 2.9 g/dL (3.5-5.0); Alkaline Phosphatase 112 U/L (38-126); Anion Gap 12 mmol/L; Blood Urea Nitrogen 11 mg/dL (7-17); Calcium 7.7 mg/dL (8.4-10.2); Carbon Dioxide 17 mmol/L (22-30); Chloride 106 mmol/L (98-107); Glucose 329 mg/dL (74-99); Non-African American GFR(CKD) >90 (>60 ml/min/1.73 sqM); Potassium 4.2 mmol/L (3.5-5.1); Sodium 135 mmol/L (137-145); Total Bilirubin 0.6 mg/dL (0.2-1.3); Total Protein 5.8 g/dL (6.3-8.2)
[2019-08-18] MEDS ORDERED: INSULIN REGULAR 100 UNIT in SODIUM CHLORIDE 0.9% 100 ML IV SCH (07:30)
[2019-08-18] MEDS ORDERED: SODIUM CHLORIDE 0.9% 1,000 ML IV SCH (07:30)
[2019-08-18 07:31] LABS: Ketones,Urine 2+ (Negative)
[2019-08-18] MEDS ORDERED: VANCOMYCIN IV PER PHARMACY 1 EACH MISC MISCELLANE PRN (07:31)
[2019-08-18] MEDS ORDERED: HYDROmorphone 1 MG/ML 1 ML SYRINGE IVP STA (07:32)
--- NOTE | 2019-08-18 07:37 | XR ---
EXAMINATION TYPE: XR chest 2V DATE OF EXAM: 08/18/2019 COMPARISON: NONE HISTORY: Fluid status TECHNIQUE: Frontal and lateral views of the chest are obtained. FINDINGS: There is no focal air space opacity, pleural effusion, or pneumothorax seen. The cardiac silhouette size is upper limits of normal. The osseous structures are intact. Right axillary surgic al clips are seen. IMPRESSION: No acute cardiopulmonary process. No interstitial edema or pleural effusions.
[2019-08-18 07:57] LABS: Glucose,Whole Blood 291 mg/dL (75-99)
[2019-08-18] MEDS ORDERED: POTASSIUM CHLORIDE ER 20 MEQ TAB.ER PO STA (07:58)
[2019-08-18] MEDS ORDERED: D5-0.45% NACL WITH KCL 20MEQ/L 1,000 ML IV SCH (08:00)
[2019-08-18] MEDS ORDERED: VANCOMYCIN 1,000 MG in SODIUM CHLORIDE 0.9% 250 ML IVPB ONE (08:00)
[2019-08-18 09:13] LABS: Glucose,Whole Blood 284 mg/dL (75-99)
[2019-08-18 09:52] LABS: Glucose,Whole Blood 242 mg/dL (75-99)
[2019-08-18 11:04] LABS: Glucose,Whole Blood 248 mg/dL (75-99)
[2019-08-18] MEDS: PIPERACILLIN-TAZOBACTAM 3.375 GM in SODIUM CHLORIDE 0.9% 100 ML IVPB SCH ×3 (11:05→23:12)
[2019-08-18 11:11] LABS: African American GFR (CKD) >90 (>60 ml/min/1.73 sqM); Anion Gap 12 mmol/L; Blood Urea Nitrogen 10 mg/dL (7-17); Carbon Dioxide 18 mmol/L (22-30); Chloride 105 mmol/L (98-107); Glucose 256 mg/dL (74-99); Non-African American GFR(CKD) >90 (>60 ml/min/1.73 sqM); Phosphorus 1.6 mg/dL (2.5-4.5); Potassium 4.2 mmol/L (3.5-5.1); Sodium 135 mmol/L (137-145)
[2019-08-18 11:59] LABS: Glucose,Whole Blood 221 mg/dL (75-99)
[2019-08-18 13:00] LABS: Glucose,Whole Blood 224 mg/dL (75-99)
[2019-08-18 14:00] VITALS: BMI 20.9
[2019-08-18 14:28] LABS: Glucose,Whole Blood 177 mg/dL (75-99)
--- NOTE | 2019-08-18 14:34 | P.HPIM ---
History of Present Illness H&P Date: 08/18/19 Marely Johnson is a 69-year-old female patient of Dr. Chapman who presented to [facility] with fever and evidence of urinary tract infection patient was also having hyperglycemia she does not have any previous history of diabetes mellitus per patient her urine and her serum were positive for ketones she was transferred to [facility] for further evaluation and treatment. In the emergency room patient was started on IV Zosyn and IV vancomycin she was given IV fluid boluses for fever and tachycardia and was admitted to telemetry floor for further evaluation. When interviewed patient is slightly confused, she is denying any known previous past medical history, from chart review there is history of breast cancer, and history of rectovaginal fistula. Patient was not taking any prescription medications at home. Past Medical History Past Medical History: Cancer Additional Past Medical History / Comment(s): Chronic UTI, Breast CA, fistula, No hx DM-admitted with DKA 08/18/2019 History of Any Multi-Drug Resistant Organisms: None Reported Past Surgical History: Breast Surgery, Orthopedic Surgery Smoking Status: Never smoker - Past Family History Father Family Medical History: Congestive Heart Failure (CHF), CVA/TIA, Diabetes Mellitus, Myocardial Infarction ([place]) Mother Family Medical History: Diabetes Mellitus, Hyperlipidemia, Hypertension, Myocardial Infarction ([place]) Medications and Allergies Home Medications Medication Instructions Recorded Confirmed Type No Known Home Medications 08/18/19 08/18/19 History Allergies Allergy/AdvReac Type Severity Reaction Status Date / Time Sulfa (Sulfonamide Allergy Swelling Verified 08/18/19 08:10 Antibiotics) Physical Exam Vitals: Vital Signs Temp Pulse Pulse Resp BP BP Pulse Ox 08/18/19 11:56 98.1 F 95 16 124/74 96 08/18/19 11:52 16 08/18/19 08:40 98.4 F 98 18 120/78 97 08/18/19 06:44 105 H 08/18/19 06:25 98.1 F 101 H 18 126/71 95 Intake and Output 08/17/19 08/18/19 08/18/19 22:59 06:59 14:59 Intake Total 34.292 Output Total 600 Balance -565.708 Intake: Intake, IV Titration 34.292 Amount Insulin Regular 100 unit 34.292 In Sodium Chloride 0.9% 100 ml @ 0.1 UNITS/KG/HR 5.956 mls/hr IV .[id number] [facility] Rx#:[id number] Output: Urine 600 Other: Voiding Method Toilet Bedpan # Voids 2 Weight 58.967 kg 58.967 kg In general patient is alert slightly confused in no apparent distress HEENT head normocephalic and atraumatic Neck is supple no JVD no goiter no lymphadenopathy Chest exam reveals a few scattered rhonchi no wheezing Cardiac exam reveals regular heart sounds S1 and S2 no gallops no murmurs Abdomen is soft nontender no organomegaly with normal bowel sounds Extremity exam reveals no edema no cyanosis or clubbing Neurological examination reveals mild confusion otherwise no gross focal deficit Results CBC & Chem 7: 08/18/19 06:38 08/18/19 10:20 Labs: Abnormal Lab Results - Last 24 Hours (Table) 08/18/19 08/18/19 08/18/19 Range/Units 06:37 06:38 06:38 Lymphocytes # 0.5 L (1.0-4.8) k/uL Sodium (137-145) mmol/L Carbon Dioxide (22-30) mmol/L Creatinine (0.52-1.04) mg/dL Glucose (74-99) mg/dL POC Glucose (mg/dL) 337 H (75-99) mg/dL Calcium (8.4-10.2) mg/dL Phosphorus (2.5-4.5) mg/dL AST (14-36) U/L Total Protein (6.3-8.2) g/dL Albumin (3.5-5.0) g/dL Urine Appearance Cloudy H (Clear) Urine Protein Trace H (Negative) Urine Glucose (UA) 4+ H (Negative) Urine Ketones 2+ H (Negative) Urine Blood Moderate H (Negative) Urine Nitrite Positive H (Negative) Ur Leukocyte Esterase Large H (Negative) Urine RBC 46 H (0-5) /hpf Urine WBC >182 H (0-5) /hpf Urine WBC Clumps Few H (None) /hpf Urine Bacteria Rare H (None) /hpf Urine Mucus Rare H (None) /hpf 08/18/19 08/18/19 08/18/19 Range/Units 06:38 07:55 09:12 Lymphocytes # (1.0-4.8) k/uL Sodium 135 L (137-145) mmol/L Carbon Dioxide 17 L (22-30) mmol/L Creatinine 0.43 L (0.52-1.04) mg/dL Glucose 329 H (74-99) mg/dL POC Glucose (mg/dL) 291 H 284 H (75-99) mg/dL Calcium 7.7 L (8.4-10.2) mg/dL Phosphorus (2.5-4.5) mg/dL AST 11 L (14-36) U/L Total Protein 5.8 L (6.3-8.2) g/dL Albumin 2.9 L (3.5-5.0) g/dL Urine Appearance (Clear) Urine Protein (Negative) Urine Glucose (UA) (Negative) Urine Ketones (Negative) Urine Blood (Negative) Urine Nitrite (Negative) Ur Leukocyte Esterase (Negative) Urine RBC (0-5) /hpf Urine WBC (0-5) /hpf Urine WBC Clumps (None) /hpf Urine Bacteria (None) /hpf Urine Mucus (None) /hpf 08/18/19 08/18/19 08/18/19 Range/Units 09:50 10:20 11:03 Lymphocytes # (1.0-4.8) k/uL Sodium 135 L (137-145) mmol/L Carbon Dioxide 18 L (22-30) mmol/L Creatinine 0.44 L (0.52-1.04) mg/dL Glucose 256 H (74-99) mg/dL POC Glucose (mg/dL) 242 H 248 H (75-99) mg/dL Calcium (8.4-10.2) mg/dL Phosphorus 1.6 L (2.5-4.5) mg/dL AST (14-36) U/L Total Protein (6.3-8.2) g/dL Albumin (3.5-5.0) g/dL Urine Appearance (Clear) Urine Protein (Negative) Urine Glucose (UA) (Negative) Urine Ketones (Negative) Urine Blood (Negative) Urine Nitrite (Negative) Ur Leukocyte Esterase (Negative) Urine RBC (0-5) /hpf Urine WBC (0-5) /hpf Urine WBC Clumps (None) /hpf Urine Bacteria (None) /hpf Urine Mucus (None) /hpf 04/27/20 04/27/20 Range/Units 11:57 12:59 Lymphocytes # (1.0-4.8) k/uL Sodium (137-145) mmol/L Carbon Dioxide (22-30) mmol/L Creatinine (0.52-1.04) mg/dL Glucose (74-99) mg/dL POC Glucose (mg/dL) 221 H 224 H (75-99) mg/dL Calcium (8.4-10.2) mg/dL Phosphorus (2.5-4.5) mg/dL AST (14-36) U/L Total Protein (6.3-8.2) g/dL Albumin (3.5-5.0) g/dL Urine Appearance (Clear) Urine Protein (Negative) Urine Glucose (UA) (Negative) Urine Ketones (Negative) Urine Blood (Negative) Urine Nitrite (Negative) Ur Leukocyte Esterase (Negative) Urine RBC (0-5) /hpf Urine WBC (0-5) /hpf Urine WBC Clumps (None) /hpf Urine Bacteria (None) /hpf Urine Mucus (None) /hpf Thrombosis Risk Factor Assmnt - Choose All That Apply Any of the Below Risk Factors Present?: No Other Risk Factors: Yes Each Risk Factor Represents 2 Points: Age 61-74 years Other congenital or acquired thrombophilia - If yes, enter type in comment: No Thrombosis Risk Factor Assessment Total Risk Factor Score: 2 Thrombosis Risk Factor Assessment Level: Low Risk Assessment and Plan Plan: #1 urinary tract infection patient was started on IV Zosyn and IV vancomycin, awaiting blood culture and urine culture results. #2 sepsis as evidenced with fever and tachycardia #3 hyperglycemia, patient denies any knowledge of having diabetes mellitus currently she is maintained on insulin drip #4 ketosis, it is unusual to have diabetic ketoacidosis with an diagnosed diabetes till age 69. This could be related to starvation ketosis Will monitor closely and recheck labs. #5 previous history of rectovaginal fistula, will consult gynecology for evaluation #6 previous history of breast cancer At this time medication and labs were reviewed continue with current management Recheck labs in a.m. Consult infectious disease and gynecology
[2019-08-18 14:54] LABS: African American GFR (CKD) >90 (>60 ml/min/1.73 sqM); Anion Gap 8 mmol/L; Blood Urea Nitrogen 10 mg/dL (7-17); Carbon Dioxide 23 mmol/L (22-30); Chloride 103 mmol/L (98-107); Non-African American GFR(CKD) >90 (>60 ml/min/1.73 sqM); Potassium 3.7 mmol/L (3.5-5.1); Sodium 134 mmol/L (137-145)
[2019-08-18 14:59] LABS: Phosphorus 0.7 mg/dL (2.5-4.5)
[2019-08-18 15:00] LABS: Glucose 175 mg/dL (74-99)
[2019-08-18] MEDS ORDERED: VANCOMYCIN 1,000 MG in SODIUM CHLORIDE 0.9% 250 ML IVPB SCH (15:00)
[2019-08-18 15:08] LABS: Glucose,Whole Blood 130 mg/dL (75-99)
[2019-08-18] MEDS: SODIUM CHLORIDE 0.9% 1,000 ML IV SCH (16:14)
[2019-08-18 16:23] LABS: Glucose,Whole Blood 125 mg/dL (75-99)
[2019-08-18] MEDS: HYDROcodone/APAP 5-325MG 1 EACH TAB PO PRN ×2 (16:23→23:11)
[2019-08-18] MEDS: INSULIN ASPART (NovoLOG) 100 UNIT/ML VIAL SQ SCH ×2 (16:59→21:48)
[2019-08-18] MEDS: HYDROmorphone 0.5 MG/0.5 ML SYRINGE IVP PRN (17:49)
[2019-08-18 20:47] LABS: Glucose,Whole Blood 282 mg/dL (75-99)
--- NOTE | 2019-08-18 22:42 | CONS ---
CONSULTATION DATE OF SERVICE: 08/18/2019 REASON FOR CONSULTATION: Urinary tract infection. HISTORY OF PRESENT ILLNESS: The patient is a 69-year-old female apparently having problems with UTI for more than a month now; has been treated with multiple courses of antibiotic; not sure about the name. Apparently she has a history of rectovaginal fistula. The patient has been transferred from [facility], where the patient presented with symptoms of fever, not feeling well, complaining of some burning in the lower abdominal/pelvic area with an intensity almost 7 to 8 out of 10. Urine output has been low, burning. Denies having any diarrhea. Denies having any chest pain or shortness of breath or cough. Some nausea and did have an episode of vomiting. The patient was evaluated at [facility]. She was noted to be in diabetic ketoacidosis. She received fluid boluses and was started on vancomycin and Zosyn. Subsequently the patient was transferred to [facility] for further management. On arrival in the ER, the patient was noted to be afebrile with T-max of 99. The patient had a normal white count. Creatinine was normal. Urine has been positive. Alberts PCR was negative. The patient had a chest x-ray which was negative. The patient was continued on vancomycin and Zosyn. Infectious Disease was consulted for further recommendations regarding antibiotic therapy. REVIEW OF SYSTEMS: Positive points have been mentioned in the HPI. The rest of the systems are negative. PAST MEDICAL HISTORY: Past medical history is significant for chronic UTI, history of breast cancer, rectovaginal fistula. PAST SURGICAL HISTORY: Breast surgery. SOCIAL HISTORY: Denies smoking, drinking or drug use. FAMILY HISTORY: Father with history of CHF and diabetes mellitus. Mother with history of diabetes and hypertension. ALLERGIES: SULFA. MEDICATIONS: The patient is currently on vancomycin, Pharmacy to dose. She is on Zosyn, NovoLog, Dilaudid, [place], Tylenol and IV fluid. PHYSICAL EXAMINATION: On examination, her blood pressure is 129/62 with a pulse of 124, temperature of 99.7. She is 97% on room air. General description is an elderly female lying in bed in no distress. No tachypnea or accessory muscle of respiration use. HEENT examination shows no pallor or scleral icterus. Oral mucosa membrane is dry. No pharyngeal erythema or thrush. NECK: Trachea is central. No thyromegaly. LUNGS: Unlabored breathing. Clear to auscultation anteriorly. No wheeze or crackle. HEART: S1, S2. Regular rate and rhythm. ABDOMEN: Soft. No tenderness. No guarding or rigidity. EXTREMITIES: No edema of the feet. SKIN EXAMINATION: No rash or mass palpable. Neurologically the patient is awake, alert, oriented x3. Mood and affect normal. LABS: Hemoglobin is 12.5, white count 7.8. Urine is positive. BUN of 10, creatinine 0.47. DIAGNOSTIC IMPRESSION AND PLAN: Patient presented to hospital with acute nausea and vomiting in this patient who has been diagnosed with urinary tract infection with diabetic ketoacidosis. This patient does have a history of recurrent UTI and a previous history of rectovaginal fistula. The patient will need imaging study to rule out any evidence of fistula. Will need to cover for the resistant Gram-negative as the likely pathogen. Clinically doubt Gram- positive pathogen. PLAN: 1. We will obtain a CT of abdomen and pelvis with contrast to rule out any fistulous communication between the gastrointestinal and urinary tracts. 2. Zosyn 3.375 grams q.8 hours to continue. 3. Discontinue the vancomycin. 4. Will follow clinical condition and culture to further adjust medication if needed. Thank you for this consultation. Will follow this patient along with you. MMODL / IJN: [id number] /
[2019-08-19 01:09] LABS: Hemoglobin A1C 10.5 % (4.0-6.0)
[2019-08-19] MEDS: HYDROmorphone 0.5 MG/0.5 ML SYRINGE IVP PRN (04:49)
[2019-08-19 06:09] LABS: Glucose,Whole Blood 202 mg/dL (75-99)
[2019-08-19 06:22] LABS: ALT 8 U/L (4-34); AST 22 U/L (14-36); African American GFR (CKD) >90 (>60 ml/min/1.73 sqM); Albumin 2.8 g/dL (3.5-5.0); Alkaline Phosphatase 91 U/L (38-126); Anion Gap 13 mmol/L; Blood Urea Nitrogen 15 mg/dL (7-17); Carbon Dioxide 15 mmol/L (22-30); Chloride 107 mmol/L (98-107); Glucose 198 mg/dL (74-99); Non-African American GFR(CKD) >90 (>60 ml/min/1.73 sqM); Sodium 135 mmol/L (137-145); Total Bilirubin 0.6 mg/dL (0.2-1.3); Total Protein 5.8 g/dL (6.3-8.2)
[2019-08-19 06:25] LABS: Potassium 3.9 mmol/L (3.5-5.1)
[2019-08-19] MEDS: INSULIN ASPART (NovoLOG) 100 UNIT/ML VIAL SQ SCH ×4 (06:26→21:11)
[2019-08-19 06:36] LABS: Basophils % (A) 0 %; Eosinophils % (A) 1 %; HCT 36.8 % (34.0-46.0); HGB 12.6 gm/dL (11.4-16.0); Lymphocytes # (A) 0.9 k/uL (1.0-4.8); Lymphocytes % (A) 11 %; MCH 30.8 pg (25.0-35.0); MCHC 34.2 g/dL (31.0-37.0); MCV 89.9 fL (80.0-100.0); Mean Platelet Volume 7.5; Monocytes # (A) 0.6 k/uL (0-1.0); Monocytes % (A) 7 %; Neutrophils # (A) 6.9 k/uL (1.3-7.7); Neutrophils % (A) 80 %; Platelet Count 159 k/uL (150-450); RBC 4.09 m/uL (3.80-5.40); RDW 12.5 % (11.5-15.5); WBC 8.6 k/uL (3.8-10.6)
[2019-08-19] MEDS: PIPERACILLIN-TAZOBACTAM 3.375 GM in SODIUM CHLORIDE 0.9% 100 ML IVPB SCH ×2 (08:30→17:12)
[2019-08-19 11:45] LABS: Glucose,Whole Blood 287 mg/dL (75-99)
--- NOTE | 2019-08-19 14:39 | P.OBCN ---
History of Present Illness Consult date: 08/19/19 Reason for consult: other (Known rectovaginal fistula) Chief complaint: Rectovaginal fistula History of present illness: This patient is a pleasant 69-year-old 2 para 2 female who was admitted yesterday in transfer from [facility] for treatment of diabetic ketoacidosis. Please see dictated emergency notes and admission history and physical for intimate details of this admission. On her intake history the patient reported a known rectovaginal fistula. Patient states that this first occurred approximately 38 years ago. After the of her first child she states that she had a very bad vaginal tear and after going home she noticed passing air per vagina. Patient states that for many years this did not bother her, but more recently she began having stool per vagina. Patient has been evaluated for this by Dr. Chacko. She had a CAT scan done on July 15 which showed a mid vaginal fistula. Patient indicates that Dr. Chacko and Dr. Napoles are in the process of referring her to a specialist at [facility] or other tertiary facility for treatment. Patient is not having any new symptomatology per vagina. Apparently she was not feeling well and recently diagnosed with diabetes and DKA. She also sees Dr. Napoles for recurrent urinary tract infections. Review of Systems Constitutional: Reports as per HPI Genitourinary: Reports as per HPI Menstruation: Reports amenorrhea Past Medical History Past Medical History: Cancer Additional Past Medical History / Comment(s): Chronic UTI, Breast CA, fistula, No hx DM-admitted with DKA 08/18/2019 History of Any Multi-Drug Resistant Organisms: None Reported Past Surgical History: Breast Surgery, Orthopedic Surgery Smoking Status: Never smoker Past Alcohol Use History: None Reported Past Drug Use History: None Reported - Past Family History Father Family Medical History: Congestive Heart Failure (CHF), CVA/TIA, Diabetes Mellitus, Myocardial Infarction ([place]) Mother Family Medical History: Diabetes Mellitus, Hyperlipidemia, Hypertension, Myocardial Infarction ([place]) Medications and Allergies Home Medications Medication Instructions Recorded Confirmed Type No Known Home Medications 08/18/19 08/18/19 History Allergies Allergy/AdvReac Type Severity Reaction Status Date / Time Sulfa (Sulfonamide Allergy Swelling Verified 08/18/19 08:10 Antibiotics) Exam Vital Signs Temp Pulse Resp BP Pulse Ox 08/19/19 11:29 106 H 08/19/19 11:27 98.5 F 106 H 18 119/63 96 08/19/19 08:00 100 16 08/19/19 07:54 97.6 F 100 16 112/63 97 08/19/19 04:00 98.1 F 96 16 107/61 99 08/19/19 00:00 97.7 F 96 16 111/62 99 08/18/19 20:00 97.7 F 98 17 121/69 99 08/18/19 16:00 99.7 F H 124 H 18 129/62 97 08/18/19 14:52 16 Intake and Output 08/18/19 08/19/19 08/19/19 22:59 06:59 14:59 Intake Total 251.182 450 350 Balance 251.182 450 350 Intake: IV 450 Sodium Chloride 0.9% 1, 450 000 ml @ 50 mls/hr IV . Q20H [facility] Rx#:[id number] Intake, IV Titration 11.182 350 Amount Insulin Regular 100 unit 11.182 In Sodium Chloride 0.9% 100 ml @ 0.1 UNITS/KG/HR 5.956 mls/hr IV .[id number] [facility] Rx#:[id number] Sodium Chloride 0.9% 1, 350 000 ml @ 50 mls/hr IV . Q20H [facility] Rx#:[id number] Oral 240 Other: Voiding Method Toilet Toilet Toilet Bedpan Bedpan # Voids 1 1 3 Weight 57.6 kg Results Result Diagrams: 08/19/19 05:50 08/19/19 05:50 Abnormal Lab Results - Last 24 Hours (Table) 08/18/19 08/18/19 08/18/19 Range/Units 14:14 14:14 14:26 Lymphocytes # (1.0-4.8) k/uL Sodium 134 L (137-145) mmol/L Carbon Dioxide (22-30) mmol/L Creatinine 0.47 L (0.52-1.04) mg/dL Glucose 175 H (74-99) mg/dL POC Glucose (mg/dL) 177 H (75-99) mg/dL Hemoglobin A1c 10.5 H (4.0-6.0) % Calcium (8.4-10.2) mg/dL Phosphorus 0.7 L* (2.5-4.5) mg/dL Total Protein (6.3-8.2) g/dL Albumin (3.5-5.0) g/dL 08/18/19 08/18/19 08/18/19 Range/Units 15:05 16:21 20:46 Lymphocytes # (1.0-4.8) k/uL Sodium (137-145) mmol/L Carbon Dioxide (22-30) mmol/L Creatinine (0.52-1.04) mg/dL Glucose (74-99) mg/dL POC Glucose (mg/dL) 130 H 125 H 282 H (75-99) mg/dL Hemoglobin A1c (4.0-6.0) % Calcium (8.4-10.2) mg/dL Phosphorus (2.5-4.5) mg/dL Total Protein (6.3-8.2) g/dL Albumin (3.5-5.0) g/dL 08/19/19 08/19/19 08/19/19 Range/Units 05:50 05:50 06:07 Lymphocytes # 0.9 L (1.0-4.8) k/uL Sodium 135 L (137-145) mmol/L Carbon Dioxide 15 L (22-30) mmol/L Creatinine 0.32 L (0.52-1.04) mg/dL Glucose 198 H (74-99) mg/dL POC Glucose (mg/dL) 202 H (75-99) mg/dL Hemoglobin A1c (4.0-6.0) % Calcium 8.0 L (8.4-10.2) mg/dL Phosphorus (2.5-4.5) mg/dL Total Protein 5.8 L (6.3-8.2) g/dL Albumin 2.8 L (3.5-5.0) g/dL 08/19/19 Range/Units 11:43 Lymphocytes # (1.0-4.8) k/uL Sodium (137-145) mmol/L Carbon Dioxide (22-30) mmol/L Creatinine (0.52-1.04) mg/dL Glucose (74-99) mg/dL POC Glucose (mg/dL) 287 H (75-99) mg/dL Hemoglobin A1c (4.0-6.0) % Calcium (8.4-10.2) mg/dL Phosphorus (2.5-4.5) mg/dL Total Protein (6.3-8.2) g/dL Albumin (3.5-5.0) g/dL Microbiology - Last 24 Hours (Table) 08/18/19 06:38 Urine Culture - Final Urine,Clean Catch Edie albicans Assessment and Plan Assessment: This is a pleasant 69-year-old 2 para 2 female with 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 Patient has been evaluated for this and currently under the care of Dr. Chacko for this condition. Apparently Dr. Napoles and Dr. Chacko are in the process of arranging further evaluation and care for this at [facility] or other tertiary facility as an outpatient. I re-explained to her that certainly this is the best plan for her care in regards to this; because due to the complexity of the condition and chronicity, it is best that she receive care by a subspecialist that is not available here. At this time there is no evidence of an acute gynecologic condition that requires treatment. It does not appear that her DKA is related to this condition as well. I advised her to follow up with Dr. Chacko as scheduled. Thank you very much for this consultation. (1) Rectovaginal fistula Current Visit: Yes Status: Chronic Code(s): N82.3 - FISTULA OF VAGINA TO LARGE INTESTINE SNOMED Code(s): 17620047
[2019-08-19] MEDS ORDERED: ATROPINE SULFATE 0.1 MG/ML 10ML SYRINGE ONE (15:21)
[2019-08-19 17:04] LABS: Glucose,Whole Blood 300 mg/dL (75-99)
--- NOTE | 2019-08-19 17:51 | P.PN ---
Subjective Progress Note Date: 08/19/19 Marely Johnson is a 69-year-old female patient of Dr. Chapman who presented to [facility] with fever and evidence of urinary tract infection patient was also having hyperglycemia she does not have any previous history of diabetes mellitus per patient her urine and her serum were positive for ketones she was transferred to [facility] for further evaluation and treatment. In the emergency room patient was started on IV Zosyn and IV vancomycin she was given IV fluid boluses for fever and tachycardia and was admitted to telemetry floor for further evaluation. When interviewed patient is slightly confused, she is denying any known previous past medical history, from chart review there is history of breast cancer, and history of rectovaginal fistula. Patient was not taking any prescription medications at home. On 08/19 2019 patient was seen and examined on the medical floor she is alert and oriented 3 in no apparent distress she is still complaining of lower abdominal pain she is also complaining of some nausea otherwise she denies any complaints there is no fever or chills no headache or dizziness no chest pain no shortness of breath no cough no vomiting no diarrhea no burning with urination no frequency or urgency and no hematuria Objective - Vital Signs Vital signs: Vital Signs Temp 98.5 F 08/19/19 11:27 Pulse 116 H 08/19/19 16:00 Resp 18 08/19/19 16:00 BP 121/65 08/19/19 16:00 Pulse Ox 99 08/19/19 16:00 Intake & Output 08/18/19 08/19/19 08/19/19 18:59 06:59 18:59 Intake Total 292.778 450 350 Output Total 600 Balance -307.222 450 350 Weight 58.967 kg 57.6 kg Intake: IV 450 Sodium Chloride 0.9% 1, 450 000 ml @ 50 mls/hr IV . Q20H [facility] Rx#:[id number] Intake, IV Titration 52.778 350 Amount Insulin Regular 100 unit 52.778 In Sodium Chloride 0.9% 100 ml @ 0.1 UNITS/KG/HR 5.956 mls/hr IV .[id number] [facility] Rx#:[id number] Sodium Chloride 0.9% 1, 350 000 ml @ 50 mls/hr IV . Q20H [facility] Rx#:[id number] Oral 240 Output: Urine 600 Other: Voiding Method Toilet Toilet Toilet Bedpan Bedpan # Voids 2 1 3 - Exam In general patient is alert slightly confused in no apparent distress HEENT head normocephalic and atraumatic Neck is supple no JVD no goiter no lymphadenopathy Chest exam reveals a few scattered rhonchi no wheezing Cardiac exam reveals regular heart sounds S1 and S2 no gallops no murmurs Abdomen is soft nontender no organomegaly with normal bowel sounds Extremity exam reveals no edema no cyanosis or clubbing Neurological examination reveals mild confusion otherwise no gross focal deficit - Labs CBC & Chem 7: 08/19/19 05:50 08/19/19 05:50 Labs: Abnormal Lab Results - Last 24 Hours (Table) 08/18/19 08/18/19 08/19/19 Range/Units 14:14 20:46 05:50 Lymphocytes # 0.9 L (1.0-4.8) k/uL Sodium (137-145) mmol/L Carbon Dioxide (22-30) mmol/L Creatinine (0.52-1.04) mg/dL Glucose (74-99) mg/dL POC Glucose (mg/dL) 282 H (75-99) mg/dL Hemoglobin A1c 10.5 H (4.0-6.0) % Calcium (8.4-10.2) mg/dL Total Protein (6.3-8.2) g/dL Albumin (3.5-5.0) g/dL 08/19/19 08/19/19 08/19/19 Range/Units 05:50 06:07 11:43 Lymphocytes # (1.0-4.8) k/uL Sodium 135 L (137-145) mmol/L Carbon Dioxide 15 L (22-30) mmol/L Creatinine 0.32 L (0.52-1.04) mg/dL Glucose 198 H (74-99) mg/dL POC Glucose (mg/dL) 202 H 287 H (75-99) mg/dL Hemoglobin A1c (4.0-6.0) % Calcium 8.0 L (8.4-10.2) mg/dL Total Protein 5.8 L (6.3-8.2) g/dL Albumin 2.8 L (3.5-5.0) g/dL 04/28/20 Range/Units 17:02 Lymphocytes # (1.0-4.8) k/uL Sodium (137-145) mmol/L Carbon Dioxide (22-30) mmol/L Creatinine (0.52-1.04) mg/dL Glucose (74-99) mg/dL POC Glucose (mg/dL) 300 H (75-99) mg/dL Hemoglobin A1c (4.0-6.0) % Calcium (8.4-10.2) mg/dL Total Protein (6.3-8.2) g/dL Albumin (3.5-5.0) g/dL Microbiology - Last 24 Hours (Table) 08/18/19 06:38 Urine Culture - Final Urine,Clean Catch Edie albicans Assessment and Plan Plan: #1 urinary tract infection patient was started on IV Zosyn and IV vancomycin, awaiting blood culture and urine culture results. #2 sepsis as evidenced with fever and tachycardia #3 hyperglycemia, patient denies any knowledge of having diabetes mellitus currently she is maintained on insulin drip #4 ketosis, it is unusual to have diabetic ketoacidosis with an diagnosed diabetes till age 69. This could be related to starvation ketosis Will monitor closely and recheck labs. #5 previous history of rectovaginal fistula, will consult gynecology for evaluation #6 previous history of breast cancer At this time medication and labs were reviewed continue with current management Recheck labs in a.m. Consult infectious disease and gynecology [employer] consult and infectious disease consult reviewed At this time continue with current IV antibiotics Add Lantus 10 units at bedtime continue with sliding scale before meals Will follow in a.m.
[2019-08-19] MEDS: SODIUM CHLORIDE 0.9% 1,000 ML IV SCH (20:49)
[2019-08-19] MEDS: ACETAMINOPHEN TAB 325 MG TAB PO PRN (20:53)
[2019-08-19 21:05] LABS: Glucose,Whole Blood 309 mg/dL (75-99)
[2019-08-19] MEDS: INSULIN DETEMIR (LEVEMIR) 100 UNIT/ML SYR SQ SCH (21:13)
--- NOTE | 2019-08-19 23:07 | PN ---
PROGRESS NOTE DATE OF SERVICE: 08/19/2019 REASON FOR FOLLOWUP: 1. Urinary tract infection. 2. Bacteremia. INTERVAL HISTORY: The patient is currently afebrile. The patient is breathing comfortably. Still complaining of burning urination and some discomfort in the pelvic area. No nausea, no vomiting. No chest pain or shortness of breath. No cough. No diarrhea. PHYSICAL EXAMINATION: Blood pressure 136/72 with a pulse of 116, temperature 99. She is 98% on room air. General description is an elderly female lying in bed in no distress. RESPIRATORY SYSTEM: Unlabored breathing, clear to auscultation anteriorly. HEART: S1, S2. Regular rate and rhythm. ABDOMEN: Soft, no tenderness. LABS: Hemoglobin is 12.6, white count 8.6, BUN of 15, creatinine 0.32. Blood culture here has been negative. Urine is showing Edie. Blood culture at [facility] was reported positive with gram-negative bacilli. DIAGNOSTIC IMPRESSION AND PLAN: Patient admitted to the hospital with gram-negative urinary tract infection with secondary bacteremia. We will try to obtain culture report from [facility]. Keep the patient on Zosyn and monitor clinical course closely. MMODL / IJN: [id number] /
[2019-08-20] MEDS: PIPERACILLIN-TAZOBACTAM 3.375 GM in SODIUM CHLORIDE 0.9% 100 ML IVPB SCH ×3 (00:01→14:30)
[2019-08-20 06:19] LABS: Glucose,Whole Blood 224 mg/dL (75-99)
[2019-08-20] MEDS: INSULIN ASPART (NovoLOG) 100 UNIT/ML VIAL SQ SCH ×4 (06:36→21:47)
[2019-08-20 06:49] LABS: Basophils % (A) 0 %; Eosinophils % (A) 0 %; Lymphocytes # (A) 0.9 k/uL (1.0-4.8); Lymphocytes % (A) 15 %; MCH 29.4 pg (25.0-35.0); MCHC 32.5 g/dL (31.0-37.0); MCV 90.3 fL (80.0-100.0); Mean Platelet Volume 7.3; Monocytes # (A) 0.4 k/uL (0-1.0); Monocytes % (A) 7 %; Neutrophils # (A) 4.5 k/uL (1.3-7.7); Neutrophils % (A) 74 %; Platelet Count 176 k/uL (150-450); RDW 12.7 % (11.5-15.5); WBC 6.1 k/uL (3.8-10.6)
[2019-08-20 07:01] LABS: ALT 10 U/L (4-34); AST 15 U/L (14-36); African American GFR (CKD) >90 (>60 ml/min/1.73 sqM); Albumin 2.8 g/dL (3.5-5.0); Alkaline Phosphatase 100 U/L (38-126); Anion Gap 10 mmol/L; Blood Urea Nitrogen 10 mg/dL (7-17); Calcium 8.1 mg/dL (8.4-10.2); Carbon Dioxide 22 mmol/L (22-30); Chloride 104 mmol/L (98-107); Glucose 224 mg/dL (74-99); Non-African American GFR(CKD) >90 (>60 ml/min/1.73 sqM); Sodium 136 mmol/L (137-145); Total Bilirubin 0.4 mg/dL (0.2-1.3); Total Protein 5.8 g/dL (6.3-8.2)
[2019-08-20] MEDS: SODIUM CHLORIDE 0.9% 1,000 ML IV SCH (07:57)
[2019-08-20 11:51] LABS: Glucose,Whole Blood 230 mg/dL (75-99)
--- NOTE | 2019-08-20 14:51 | P.PN ---
Subjective Progress Note Date: 08/20/19 Marely Johnson is a 69-year-old female patient of Dr. Chapman who presented to [facility] with fever and evidence of urinary tract infection patient was also having hyperglycemia she does not have any previous history of diabetes mellitus per patient her urine and her serum were positive for ketones she was transferred to [facility] for further evaluation and treatment. In the emergency room patient was started on IV Zosyn and IV vancomycin she was given IV fluid boluses for fever and tachycardia and was admitted to telemetry floor for further evaluation. When interviewed patient is slightly confused, she is denying any known previous past medical history, from chart review there is history of breast cancer, and history of rectovaginal fistula. Patient was not taking any prescription medications at home. On 08/19 2019 patient was seen and examined on the medical floor she is alert and oriented 3 in no apparent distress she is still complaining of lower abdominal pain she is also complaining of some nausea otherwise she denies any complaints there is no fever or chills no headache or dizziness no chest pain no shortness of breath no cough no vomiting no diarrhea no burning with urination no frequency or urgency and no hematuria On 08/20/2019 patient was seen and examined on the medical floor she is feeling better her pain is better controlled there is no fever or chills no headache or dizziness no chest pain no shortness of breath no cough no nausea or vomiting no abdominal pain no diarrhea no burning was urination no frequency or urgency and no hematuria Objective - Vital Signs Vital signs: Vital Signs Temp 97.6 F 08/20/19 14:32 Pulse 106 H 08/20/19 14:32 Resp 18 08/20/19 14:32 BP 111/64 08/20/19 14:32 Pulse Ox 98 08/20/19 14:32 Intake & Output 08/19/19 08/20/19 08/20/19 18:59 06:59 18:59 Intake Total 586 118 Output Total 600 Balance 586 -600 118 Weight 58 kg Intake: Intake, IV Titration 350 Amount Sodium Chloride 0.9% 1, 350 000 ml @ 50 mls/hr IV . Q20H [facility] Rx#:[id number] Oral 236 118 Output: Urine 600 Other: Voiding Method Toilet Toilet Toilet # Voids 3 1 - Exam In general patient is alert slightly confused in no apparent distress HEENT head normocephalic and atraumatic Neck is supple no JVD no goiter no lymphadenopathy Chest exam reveals a few scattered rhonchi no wheezing Cardiac exam reveals regular heart sounds S1 and S2 no gallops no murmurs Abdomen is soft nontender no organomegaly with normal bowel sounds Extremity exam reveals no edema no cyanosis or clubbing Neurological examination reveals mild confusion otherwise no gross focal deficit - Labs CBC & Chem 7: 08/20/19 06:05 08/20/19 06:05 Labs: Abnormal Lab Results - Last 24 Hours (Table) 08/19/19 08/19/19 08/20/19 Range/Units 17:02 21:03 06:05 Lymphocytes # 0.9 L (1.0-4.8) k/uL Sodium (137-145) mmol/L Potassium (3.5-5.1) mmol/L Creatinine (0.52-1.04) mg/dL Glucose (74-99) mg/dL POC Glucose (mg/dL) 300 H 309 H (75-99) mg/dL Calcium (8.4-10.2) mg/dL Total Protein (6.3-8.2) g/dL Albumin (3.5-5.0) g/dL 08/20/19 08/20/19 08/20/19 Range/Units 06:05 06:17 11:49 Lymphocytes # (1.0-4.8) k/uL Sodium 136 L (137-145) mmol/L Potassium 3.0 L (3.5-5.1) mmol/L Creatinine 0.31 L (0.52-1.04) mg/dL Glucose 224 H (74-99) mg/dL POC Glucose (mg/dL) 224 H 230 H (75-99) mg/dL Calcium 8.1 L (8.4-10.2) mg/dL Total Protein 5.8 L (6.3-8.2) g/dL Albumin 2.8 L (3.5-5.0) g/dL Microbiology - Last 24 Hours (Table) 08/18/19 17:52 Blood Culture - Preliminary Blood No Growth after 24 hours 08/18/19 06:38 Urine Culture - Final Urine,Clean Catch Edie albicans Assessment and Plan Plan: #1 urinary tract infection patient was started on IV Zosyn and IV vancomycin, awaiting blood culture and urine culture results. #2 sepsis as evidenced with fever and tachycardia #3 hyperglycemia, patient denies any knowledge of having diabetes mellitus currently she is maintained on insulin drip #4 ketosis, it is unusual to have diabetic ketoacidosis with an diagnosed angélica ronny till age 69. This could be related to starvation ketosis Will monitor closely and recheck labs. #5 previous history of rectovaginal fistula, will consult gynecology for evaluation #6 previous history of breast cancer At this time medication and labs were reviewed continue with current management Recheck labs in a.m. Consult infectious disease and gynecology LUG LOADER consult and infectious disease consult reviewed At this time continue with current IV antibiotics Add Lantus 10 units at bedtime continue with sliding scale before meals Will follow in a.m.
[2019-08-20 16:29] LABS: Glucose,Whole Blood 257 mg/dL (75-99)
[2019-08-20] MEDS: ACETAMINOPHEN TAB 325 MG TAB PO PRN (19:39)
[2019-08-20 20:46] LABS: Glucose,Whole Blood 286 mg/dL (75-99)
[2019-08-20] MEDS: INSULIN DETEMIR (LEVEMIR) 100 UNIT/ML SYR SQ SCH (21:45)
[2019-08-20] MEDS: FLUCONAZOLE 100 MG TAB PO SCH (21:46)
--- NOTE | 2019-08-20 22:24 | PN ---
PROGRESS NOTE DATE OF SERVICE: 08/20/2019 REASON FOR FOLLOWUP: Urinary tract infection with bacteremia. INTERVAL HISTORY: The patient is currently afebrile. The patient is feeling better today. She is breathing comfortably. Denies having any chest pain or cough. Burning urine has improved. No nausea, vomiting and no diarrhea. PHYSICAL EXAMINATION: Blood pressure 131/77 with a pulse of 109, temperature 98.1. She is 97% on room air. General description is an elderly female lying in bed in no distress. RESPIRATORY SYSTEM: Unlabored breathing. Clear to auscultation anteriorly. HEART: S1, S2. Regular rate and rhythm. ABDOMEN: Soft. No tenderness. LABS: Blood culture has been negative. Blood culture at [facility] was Gram-negative bacilli with ID sensitivity pending. Urine culture is showing Edie albicans. DIAGNOSTIC IMPRESSION AND PLAN: Patient admitted to hospital with urinary tract infection with sepsis in this patient who did have bacteremia secondary to urinary source. We are waiting for the final ID of the Gram-negative in the blood at the outside facility to determine her discharge antibiotics. Diflucan will be added. Continue Zosyn. Monitor her clinical course closely. MMODL / IJN: [id number] /
[2019-08-21] MEDS: PIPERACILLIN-TAZOBACTAM 3.375 GM in SODIUM CHLORIDE 0.9% 100 ML IVPB SCH ×3 (00:02→16:19)
[2019-08-21 06:45] LABS: Glucose,Whole Blood 186 mg/dL (75-99)
[2019-08-21 07:26] LABS: Basophils % (A) 1 %; Eosinophils % (A) 1 %; HCT 36.2 % (34.0-46.0); HGB 11.7 gm/dL (11.4-16.0); Lymphocytes # (A) 1.4 k/uL (1.0-4.8); Lymphocytes % (A) 27 %; MCH 29.3 pg (25.0-35.0); MCHC 32.5 g/dL (31.0-37.0); MCV 90.3 fL (80.0-100.0); Mean Platelet Volume 7.6; Monocytes # (A) 0.3 k/uL (0-1.0); Monocytes % (A) 6 %; Neutrophils # (A) 3.3 k/uL (1.3-7.7); Neutrophils % (A) 64 %; Platelet Count 209 k/uL (150-450); RDW 12.8 % (11.5-15.5); WBC 5.1 k/uL (3.8-10.6)
[2019-08-21 07:44] LABS: ALT 12 U/L (4-34); AST 16 U/L (14-36); African American GFR (CKD) >90 (>60 ml/min/1.73 sqM); Albumin 2.9 g/dL (3.5-5.0); Alkaline Phosphatase 93 U/L (38-126); Anion Gap 8 mmol/L; Blood Urea Nitrogen 10 mg/dL (7-17); Calcium 8.3 mg/dL (8.4-10.2); Carbon Dioxide 24 mmol/L (22-30); Chloride 106 mmol/L (98-107); Glucose 197 mg/dL (74-99); Non-African American GFR(CKD) >90 (>60 ml/min/1.73 sqM); Sodium 138 mmol/L (137-145); Total Bilirubin 0.3 mg/dL (0.2-1.3); Total Protein 5.9 g/dL (6.3-8.2)
[2019-08-21] MEDS: FLUCONAZOLE 100 MG TAB PO SCH (08:44)
[2019-08-21] MEDS: INSULIN ASPART (NovoLOG) 100 UNIT/ML VIAL SQ SCH ×4 (08:45→21:48)
[2019-08-21 11:53] LABS: Glucose,Whole Blood 293 mg/dL (75-99)
[2019-08-21] MEDS ORDERED: Potassium Replacement Protocol 1 EACH MISC MISCELLANE PRN ×2 (13:33→15:22)
[2019-08-21] MEDS: POTASSIUM CHLORIDE ER 20 MEQ TAB.ER PO SCH ×2 (16:18→17:12)
[2019-08-21] MEDS: SODIUM CHLORIDE 0.9% 1,000 ML IV SCH (16:19)
[2019-08-21] MEDS: INSULIN DETEMIR (LEVEMIR) 100 UNIT/ML SYR SQ SCH (21:48)
--- NOTE | 2019-08-21 22:51 | PN ---
PROGRESS NOTE DATE OF SERVICE: 08/21/2019 REASON FOR FOLLOWUP: UTI with bacteremia. INTERVAL HISTORY: The patient is currently afebrile. The patient is breathing comfortably. The patient denies having any chest pain or shortness of breath or cough. No nausea, no vomiting. No abdominal pain or diarrhea. PHYSICAL EXAMINATION: Blood pressure 124/75 with a pulse of 102, temperature 98.3. She is 99% on room air. General description is an elderly female lying in bed in no distress. RESPIRATORY SYSTEM: Unlabored breathing. Clear to auscultation anteriorly. HEART: S1, S2. Regular rate and rhythm. LABS: Hemoglobin 11.6, white count 5.1, BUN of 10, creatinine 0.33. Blood culture here has been negative. Blood culture from [place] still pending. DIAGNOSTIC IMPRESSION AND PLAN: Patient admitted to hospital with urinary tract infection with secondary bacteremia. We are waiting for the culture from [place] to be finalized to determine her discharge antibiotics. Continue with Zosyn and monitor her clinical course closely. MMODL / IJN: [id number] /
[2019-08-22] MEDS: PIPERACILLIN-TAZOBACTAM 3.375 GM in SODIUM CHLORIDE 0.9% 100 ML IVPB SCH ×2 (00:13→08:38)
[2019-08-22] MEDS: SODIUM CHLORIDE 0.9% 1,000 ML IV SCH ×2 (01:56→20:57)
[2019-08-22 07:49] LABS: Glucose,Whole Blood 261 mg/dL (75-99)
[2019-08-22 07:54] LABS: Glucose,Whole Blood 282 mg/dL (75-99)
[2019-08-22 08:02] LABS: Glucose,Whole Blood 262 mg/dL (75-99)
[2019-08-22] MEDS: INSULIN ASPART (NovoLOG) 100 UNIT/ML VIAL SQ SCH ×4 (08:38→20:56)
[2019-08-22] MEDS: FLUCONAZOLE 100 MG TAB PO SCH (08:39)
[2019-08-22 11:47] LABS: Glucose,Whole Blood 259 mg/dL (75-99)
--- NOTE | 2019-08-22 16:41 | P.PN ---
Subjective Progress Note Date: 08/21/19 Marely Johnson is a 69-year-old female patient of Dr. Chapman who presented to [facility] with fever and evidence of urinary tract infection patient was also having hyperglycemia she does not have any previous history of diabetes mellitus per patient her urine and her serum were positive for ketones she was transferred to [facility] for further evaluation and treatment. In the emergency room patient was started on IV Zosyn and IV vancomycin she was given IV fluid boluses for fever and tachycardia and was admitted to telemetry floor for further evaluation. When interviewed patient is slightly confused, she is denying any known previous past medical history, from chart review there is history of breast cancer, and history of rectovaginal fistula. Patient was not taking any prescription medications at home. On 08/19 2019 patient was seen and examined on the medical floor she is alert and oriented 3 in no apparent distress she is still complaining of lower abdominal pain she is also complaining of some nausea otherwise she denies any complaints there is no fever or chills no headache or dizziness no chest pain no shortness of breath no cough no vomiting no diarrhea no burning with urination no frequency or urgency and no hematuria On 08/20/2019 patient was seen and examined on the medical floor she is feeling better her pain is better controlled there is no fever or chills no headache or dizziness no chest pain no shortness of breath no cough no nausea or vomiting no abdominal pain no diarrhea no burning was urination no frequency or urgency and no hematuria On 08/21/2019 patient was seen and examined on the medical floor she is alert and oriented in no apparent distress there is no fever or chills no headache or dizziness no chest pain no shortness of breath no cough no nausea or vomiting no abdominal pain no diarrhea and no urinary symptoms. Objective - Vital Signs Vital signs: Vital Signs Temp 97.9 F 08/21/19 16: Pulse 101 H 08/21/19 16:21 Resp 18 08/21/19 16:21 BP 114/62 08/21/19 16:21 Pulse Ox 100 08/21/19 16:21 Intake & Output 08/20/19 08/21/19 08/21/19 18:59 06:59 18:59 Intake Total 118 240 Output Total 500 600 Balance -382 -600 240 Weight 57.2 kg Intake: Oral 118 240 Output: Urine 500 600 Other: Voiding Method Toilet Toilet Toilet # Bowel Movements 1 - Exam In general patient is alert slightly confused in no apparent distress HEENT head normocephalic and atraumatic Neck is supple no JVD no goiter no lymphadenopathy Chest exam reveals a few scattered rhonchi no wheezing Cardiac exam reveals regular heart sounds S1 and S2 no gallops no murmurs Abdomen is soft nontender no organomegaly with normal bowel sounds Extremity exam reveals no edema no cyanosis or clubbing Neurological examination reveals mild confusion otherwise no gross focal deficit - Labs CBC & Chem 7: 08/21/19 06:57 08/21/19 06:57 Labs: Abnormal Lab Results - Last 24 Hours (Table) 08/20/19 08/21/19 08/21/19 Range/Units 20:42 06:26 06:57 Potassium 3.0 L (3.5-5.1) mmol/L Creatinine 0.33 L (0.52-1.04) mg/dL Glucose 197 H (74-99) mg/dL POC Glucose (mg/dL) 286 H 186 H (75-99) mg/dL Calcium 8.3 L (8.4-10.2) mg/dL Total Protein 5.9 L (6.3-8.2) g/dL Albumin 2.9 L (3.5-5.0) g/dL 08/21/19 Range/Units 11:51 Potassium (3.5-5.1) mmol/L Creatinine (0.52-1.04) mg/dL Glucose (74-99) mg/dL POC Glucose (mg/dL) 293 H (75-99) mg/dL Calcium (8.4-10.2) mg/dL Total Protein (6.3-8.2) g/dL Albumin (3.5-5.0) g/dL Microbiology - Last 24 Hours (Table) 08/18/19 17:52 Blood Culture - Preliminary Blood No Growth after 48 hours Assessment and Plan Plan: #1 urinary tract infection patient was started on IV Zosyn and IV vancomycin, awaiting blood culture and urine culture results. #2 sepsis as evidenced with fever and tachycardia #3 hyperglycemia, patient denies any knowledge of having diabetes mellitus currently she is maintained on insulin drip #4 ketosis, it is unusual to have diabetic ketoacidosis with an diagnosed diabetes till age 69. This could be related to starvation ketosis Will monitor closely and recheck labs. #5 previous history of rectovaginal fistula, will consult gynecology for evaluation #6 previous history of breast cancer At this time medication and labs were reviewed continue with current management Recheck labs in a.m. Consult infectious disease and gynecology WEIGHT CALCULATOR consult and infectious disease consult reviewed At this time continue with current IV antibiotics Add Lantus 10 units at bedtime continue with sliding scale before meals Will follow in a.m.
--- NOTE | 2019-08-22 16:42 | P.PN ---
Subjective Progress Note Date: 08/22/19 Marely Johnson is a 69-year-old female patient of Dr. Chapman who presented to [facility] with fever and evidence of urinary tract infection patient was also having hyperglycemia she does not have any previous history of diabetes mellitus per patient her urine and her serum were positive for ketones she was transferred to [facility] for further evaluation and treatment. In the emergency room patient was started on IV Zosyn and IV vancomycin she was given IV fluid boluses for fever and tachycardia and was admitted to telemetry floor for further evaluation. When interviewed patient is slightly confused, she is denying any known previous past medical history, from chart review there is history of breast cancer, and history of rectovaginal fistula. Patient was not taking any prescription medications at home. On 08/19 2019 patient was seen and examined on the medical floor she is alert and oriented 3 in no apparent distress she is still complaining of lower abdominal pain she is also complaining of some nausea otherwise she denies any complaints there is no fever or chills no headache or dizziness no chest pain no shortness of breath no cough no vomiting no diarrhea no burning with urination no frequency or urgency and no hematuria On 08/20/2019 patient was seen and examined on the medical floor she is feeling better her pain is better controlled there is no fever or chills no headache or dizziness no chest pain no shortness of breath no cough no nausea or vomiting no abdominal pain no diarrhea no burning was urination no frequency or urgency and no hematuria On 08/21/2019 patient was seen and examined on the medical floor she is alert and oriented in no apparent distress there is no fever or chills no headache or dizziness no chest pain no shortness of breath no cough no nausea or vomiting no abdominal pain no diarrhea and no urinary symptoms. On 08/22/2019 patient was seen and examined on the medical floor, she is feeling better there is no fever or chills no headache or dizziness no chest pain no shortness of breath no cough no nausea or vomiting no abdominal pain no diarrhea no burning was urination no frequency or urgency and no hematuria Objective - Vital Signs Vital signs: Vital Signs Temp 97.9 F 08/22/19 07:44 Pulse 101 H 08/22/19 07:44 Resp 16 08/22/19 07:44 BP 108/70 08/22/19 07:44 Pulse Ox 97 08/22/19 07:44 Intake & Output 08/21/19 08/22/19 08/22/19 18:59 06:59 18:59 Intake Total 240 180 Balance 240 180 Intake: Oral 240 180 Other: Voiding Method Toilet Toilet # Voids 1 - Exam In general patient is alert slightly confused in no apparent distress HEENT head normocephalic and atraumatic Neck is supple no JVD no goiter no lymphadenopathy Chest exam reveals a few scattered rhonchi no wheezing Cardiac exam reveals regular heart sounds S1 and S2 no gallops no murmurs Abdomen is soft nontender no organomegaly with normal bowel sounds Extremity exam reveals no edema no cyanosis or clubbing Neurological examination reveals mild confusion otherwise no gross focal deficit - Labs CBC & Chem 7: 08/21/19 06:57 08/21/19 06:57 Labs: Abnormal Lab Results - Last 24 Hours (Table) 08/21/19 08/21/19 08/21/19 Range/Units 11:51 16:34 20:35 POC Glucose (mg/dL) 293 H 261 H 282 H (75-99) mg/dL 08/22/19 08/22/19 Range/Units 07:18 11:39 POC Glucose (mg/dL) 262 H 259 H (75-99) mg/dL Microbiology - Last 24 Hours (Table) 08/18/19 17:52 Blood Culture - Preliminary Blood No Growth after 72 hours Assessment and Plan Plan: #1 urinary tract infection patient was started on IV Zosyn and IV vancomycin, awaiting blood culture and urine culture results. #2 sepsis as evidenced with fever and tachycardia #3 hyperglycemia, patient denies any knowledge of having diabetes mellitus currently she is maintained on insulin drip #4 ketosis, it is unusual to have diabetic ketoacidosis with an diagnosed diabetes till age 69. This could be related to starvation ketosis Will monitor closely and recheck labs. #5 previous history of rectovaginal fistula, will consult gynecology for evaluation #6 previous history of breast cancer At this time medication and labs were reviewed continue with current management Recheck labs in a.m. Consult infectious disease and gynecology CRANE HOIST OR LIFT OPERATOR consult and infectious disease consult reviewed At this time continue with current IV antibiotics Add Lantus 10 units at bedtime continue with sliding scale before meals Will follow in a.m.
--- NOTE | 2019-08-22 16:48 | PN ---
PROGRESS NOTE DATE OF SERVICE: 08/22/2019 REASON FOR FOLLOWUP: E coli bacteremia secondary to urinary source. INTERVAL HISTORY: Patient is currently afebrile, patient is breathing comfortably. Patient denies having any chest pain or shortness of breath or cough. No nausea, no vomiting. Overall feeling better. PHYSICAL EXAMINATION: Blood pressure 115/69 with a pulse of 106, temperature 98.2, she is 100% on room air. General description is an elderly female, lying in bed in no distress. RESPIRATORY SYSTEM: Unlabored breathing, clear to auscultation anteriorly. HEART: S1-S2 regular rate and rhythm. ABDOMEN: Soft, no tenderness. LABS: Blood culture has been negative. Blood culture from [place] was E coli, sensitive to Keflex. DIAGNOSTIC IMPRESSION AND PLAN: Patient with an E coli bacteremia secondary to urinary source. Patient overall clinical improvement on antibiotic, will switch over to Rocephin 2 g daily with a plan to finish with oral Ceftin 500 mg twice a day for 10 days. Prescription has been sent to the pharmacy. Plan of care was discussed with the admitting physician. MMODL / IJN: [id number] /
[2019-08-22 17:01] LABS: Glucose,Whole Blood 259 mg/dL (75-99)
[2019-08-22 20:41] LABS: Glucose,Whole Blood 314 mg/dL (75-99)
[2019-08-22] MEDS: INSULIN DETEMIR (LEVEMIR) 100 UNIT/ML SYR SQ SCH (20:56)
[2019-08-23 06:45] LABS: Glucose,Whole Blood 227 mg/dL (75-99)
[2019-08-23 06:53] LABS: Basophils # (A) 0.1 k/uL (0-0.2); Basophils % (A) 1 %; Eosinophils # (A) 0.1 k/uL (0-0.7); Eosinophils % (A) 2 %; HCT 36.9 % (34.0-46.0); HGB 11.5 gm/dL (11.4-16.0); Hypochromasia Slight; Lymphocytes # (A) 1.6 k/uL (1.0-4.8); Lymphocytes % (A) 27 %; MCHC 31.1 g/dL (31.0-37.0); MCV 93.1 fL (80.0-100.0); Mean Platelet Volume 7.1; Monocytes # (A) 0.3 k/uL (0-1.0); Monocytes % (A) 5 %; Neutrophils # (A) 3.8 k/uL (1.3-7.7); Neutrophils % (A) 64 %; Platelet Count 284 k/uL (150-450); RBC 3.97 m/uL (3.80-5.40); WBC 5.9 k/uL (3.8-10.6)
[2019-08-23] MEDS: INSULIN ASPART (NovoLOG) 100 UNIT/ML VIAL SQ SCH ×2 (07:19→11:32)
[2019-08-23 07:23] LABS: ALT 13 U/L (4-34); AST 18 U/L (14-36); African American GFR (CKD) >90 (>60 ml/min/1.73 sqM); Albumin 3.2 g/dL (3.5-5.0); Alkaline Phosphatase 88 U/L (38-126); Anion Gap 9 mmol/L; Blood Urea Nitrogen 12 mg/dL (7-17); Calcium 8.7 mg/dL (8.4-10.2); Carbon Dioxide 24 mmol/L (22-30); Chloride 104 mmol/L (98-107); Glucose 244 mg/dL (74-99); Non-African American GFR(CKD) >90 (>60 ml/min/1.73 sqM); Sodium 137 mmol/L (137-145); Total Bilirubin 0.3 mg/dL (0.2-1.3); Total Protein 6.3 g/dL (6.3-8.2)
[2019-08-23] MEDS: FLUCONAZOLE 100 MG TAB PO SCH (08:25)
[2019-08-23] MEDS: SODIUM CHLORIDE 0.9% 1,000 ML IV SCH (11:27)
[2019-08-23 11:30] LABS: Glucose,Whole Blood 310 mg/dL (75-99)
--- NOTE | 2019-08-23 13:10 | P.DS ---
Providers Date of admission: 08/18/19 07:29 Expected date of discharge: 08/23/19 Attending physician: Jackson Breen Consults: 08/18/19 14:31 Consult Physician Routine Consulting Provider: Laura Kumar Consult Reason/Comments: uti Do you want consulting provider notified?: Yes 08/18/19 14:32 Consult Physician Routine Consulting Provider: Eagle Evans HAND VIOLIN MAKER Consult Reason/Comments: hx of colovaginal fistula, recurrent UTI Do you want consulting provider notified?: Yes Primary care physician: Bridgette Chapman [facility] Course: Diagnosis on discharge: #1 urinary tract infection patient was started on IV Zosyn and IV vancomycin, awaiting blood culture and urine culture results. Improved culture results were positive for E. coli patient was evaluated by infectious disease DrIlir Kumar antibiotic were adjusted at the time of discharge patient was given a course of Ceftin 500 mg twice daily for 10 days and Diflucan 100 mg daily for 3 days. #2 sepsis as evidenced with fever and tachycardia, resolved. #3 hyperglycemia, patient denies any knowledge of having diabetes mellitus currently she is maintained on insulin drip, patient was then switched to Lantus 10 units at bedtime and NovoLog sliding scale before meals. At the time of discharge patient was very resistant to taking insulin at home she was given a prescription for metformin 850 mg twice daily, close follow-up of her glucose level and adjustment of medication is necessary as outpatient #4 ketosis, it is unusual to have diabetic ketoacidosis with an diagnosed diabetes till age 69. This could be related to starvation ketosis Will monitor closely and recheck labs. #5 previous history of rectovaginal fistula, will consult gynecology for evaluation. Patient was evaluated by gynecology, apparently she had previous evaluation in the past and was referred to a tertiary care center. She was counseled to follow-up at [facility] or [facility] for further evaluation and treatment. #6 previous history of breast cancer Hospital course: Marely Johnson is a 69-year-old female patient of Dr. Chapman who presented to [facility] with fever and evidence of urinary tract infection patient was also having hyperglycemia she does not have any previous history of diabetes mellitus per patient her urine and her serum were positive for ketones she was transferred to [facility] for further evaluation and treatment. In the emergency room patient was started on IV Zosyn and IV vancomycin she was given IV fluid boluses for fever and tachycardia and was admitted to telemetry floor for further evaluation. When interviewed patient is slightly confused, she is denying any known previous past medical history, from chart review there is history of breast cancer, and history of rectovaginal fistula. Patient was not taking any prescription medications at home. On 08/19 2019 patient was seen and examined on the medical floor she is alert and oriented 3 in no apparent distress she is still complaining of lower abdominal pain she is also complaining of some nausea otherwise she denies any complaints there is no fever or chills no headache or dizziness no chest pain no shortness of breath no cough no vomiting no diarrhea no burning with urination no frequency or urgency and no hematuria On 08/20/2019 patient was seen and examined on the medical floor she is feeling better her pain is better controlled there is no fever or chills no headache or dizziness no chest pain no shortness of breath no cough no nausea or vomiting no abdominal pain no diarrhea no burning was urination no frequency or urgency and no hematuria On 08/21/2019 patient was seen and examined on the medical floor she is alert and oriented in no apparent distress there is no fever or chills no headache or dizziness no chest pain no shortness of breath no cough no nausea or vomiting no abdominal pain no diarrhea and no urinary symptoms. On 08/22/2019 patient was seen and examined on the medical floor, she is feeling better there is no fever or chills no headache or dizziness no chest pain no shortness of breath no cough no nausea or vomiting no abdominal pain no diarrhea no burning was urination no frequency or urgency and no hematuria On 08/23/2019 patient was seen and examined on the medical floor she is doing well she is alert and oriented 3 she denies any symptoms there is no fever or chills no headache or dizziness no chest pain no shortness of breath no cough no nausea or vomiting no abdominal pain no diarrhea and no urinary symptoms. Patient was cleared for discharge by infectious disease she was given a prescription for Ceftin and a prescription for Diflucan. She will follow-up with her primary care physician Dr. Chapman within one week. Patient Condition at Discharge: Serious Plan - Discharge Summary Discharge Rx Participant: Yes New Discharge Prescriptions: New Cefuroxime Axetil [Ceftin] 500 mg PO BID #20 tab Fluconazole [Diflucan] 100 mg PO DAILY tab metFORMIN HCL 850 mg PO AC-BID 30 Days #60 tablet Discharge Medication List Cefuroxime Axetil [Ceftin] 500 mg PO BID #20 tab 08/22/19 [Rx] Fluconazole [Diflucan] 100 mg PO DAILY tab 08/23/19 [Rx] metFORMIN HCL 850 mg PO AC-BID 30 Days #60 tablet 08/23/19 [Rx] Follow up Appointment(s)/Referral(s): Bridgette Chapman MD [Primary Care Provider] - 1-2 days Activity/Diet/Wound Care/Special Instructions: Glucometer and testing supplies filled at [facility] - pick them up there prior to discharge
[2019-08-23 15:09] VITALS: BP 131/74; PULSE 98; RESP 18; TEMP 98.4
--- NOTE | 2019-08-23 18:31 | PN ---
PROGRESS NOTE DATE OF SERVICE: 08/23/2019 REASON FOR FOLLOWUP: E coli bacteremia. INTERVAL HISTORY: The patient is currently afebrile. Patient is feeling better. Breathing comfortably. The patient's other symptoms have resolved. No chest pain, shortness of breath or cough and no diarrhea. PHYSICAL EXAMINATION: Blood pressure 114/68 with pulse of 90, temperature 98.2. She is 96% on room air. General description: The patient is an elderly female lying in bed in no distress. Respiratory system: Unlabored breathing, clear to auscultation anteriorly. Heart S1, S2. Regular rate and rhythm. Abdomen soft, no tenderness. LABS: Hemoglobin 11.5, white count 5.9. BUN of 12 and creatinine 0.29. DIAGNOSTIC IMPRESSION AND PLAN: Patient with E coli bacteremia secondary to urinary source. Overall clinical improvement. Patient to finish therapy with oral Ceftin. Prescription sent to pharmacy. Monitor clinical course closely. MMODL / IJN: [id number] /
== END 2019-08-23 16:10 | disposition home or self-care (01) | DRG 871 ==
LOC: EC 06:13 → 3SCARD 07:29 → 4SSUR 08-21 18:14
PROVIDERS: ADMIT Internal Medicine; ATTEND Internal Medicine
DX: A41.51 Sepsis due to Escherichia coli [E. coli] (principal); E11.10 Type 2 diabetes mellitus with ketoacidosis without coma; N82.3 Fistula of vagina to large intestine; N39.0 Urinary tract infection, site not specified; Z20.828 Contact with and (suspected) exposure to other viral communicable diseases; Z87.440 Personal history of urinary (tract) infections; Z85.3 Personal history of malignant neoplasm of breast; Z90.11 Acquired absence of right breast and nipple; Z98.890 Other specified postprocedural states; Z88.2 Allergy status to sulfonamides; Z82.49 Family history of ischemic heart disease and other diseases of the circulatory system; Z83.3 Family history of diabetes mellitus; Z83.49 Family history of other endocrine, nutritional and metabolic diseases; Z82.3 Family history of stroke
CPT/HCPCS: 36415; 71046; 80051; 80053; 81001; 82009; 82565; 82947; 83036; 83605; 84100; 84520; 85025; 87040; 87086; 87635; 93005; 96365; 96375; 99285

== ENCOUNTER → 2019-08-29 | Outpatient (CLI) | payer MEDICARE | LOC: LABWHC1 07:57 | PROVIDERS: ATTEND Family Medicine | DX: Z03.818 Encounter for observation for suspected exposure to other biological agents ruled out (principal) | CPT/HCPCS: 87635 ==

== ENCOUNTER → 2019-09-16 | Outpatient (CLI) | payer MEDICARE | END | disposition home or self-care (01) | LOC: LABWHC1 15:23 | PROVIDERS: ATTEND Surgery Plastic and Reconstructive Surgery | DX: Z53.9 Procedure and treatment not carried out, unspecified reason (principal) ==

== ENCOUNTER 2019-09-17 08:58 | Day surgery (SDC) | payer MEDICARE ==
[2019-09-17 10:11] LABS: Mean Platelet Volume 7.1; Platelet Count 250 k/uL (150-450)
[2019-09-17] MEDS ORDERED: ALPRAZolam 0.25 MG TAB PO STA (10:18)
[2019-09-17 10:29] VITALS: RESP 16; TEMP 97.2
[2019-09-17 10:34] LABS: INR 0.9 (<1.2); Prothrombin Time 9.9 sec (9.0-12.0)
--- NOTE | 2019-09-17 12:21 | CT ---
EXAMINATION TYPE: CT biopsy subcut tissue DATE OF EXAM: 09/17/2019 COMPARISON: PET CT scan 08/08/2019 HISTORY: Abnormal PET scan demonstrating asymmetric signal soft tissue encasing the right rib cage an d evidence of abnormal rib lesion. CT DLP: 642 mGycm The procedure is discussed with the patient, the risks, complications, benefits and alternatives, wer e discussed and any questions were answered. Informed consent was obtained. The patient is placed p fercho on the CT table, prepped and draped in the usual sterile fashion. Utilizing a 22-gauge Chiba needle access into asymmetric soft tissue density was achieved with a sing le pass performed. Additionally 2 18-gauge core samples were obtained. Pathology pending. 3 rib lesion was not accessible by needle biopsy and appeared on today's exam to be predominantly scl erotic. Therefore the soft tissue component was biopsied. If the rib lesion requires further biopsy t hen surgical consultation would be required. All elements of maximal barrier technique were utilized. The patient remained stable throughout the procedure with no immediate postprocedural complication. IMPRESSION: 1. Successful CT guided fine needle aspiration and core biopsy of the subcutaneous abnormal soft ti ssue component surrounding the right rib cage noted by PET scan.
[2019-09-17 12:30] VITALS: BP 127/71; PULSE 93
--- NOTE | 2019-09-17 12:47 | XR ---
EXAMINATION TYPE: XR chest 1V portable DATE OF EXAM: 09/17/2019 COMPARISON: PET CT August 08, 2019. 2 view chest x-ray August 18, 2019 HISTORY: Post subcutaneous biopsy Right anterior thorax. TECHNIQUE: Single frontal view of the chest is obtained. FINDINGS: There is no focal air space opacity, pleural effusion, or pneumothorax seen. The cardiac silhouette size is stable and upper limits of normal. Surgical clips from right mastoidectomy with ab sent right breast shadow redemonstrated. IMPRESSION: No pneumothorax or other complication related to right sided thoracic biopsy.
== END 2019-09-17 12:50 | disposition home or self-care (01) ==
LOC: RADPROMAIN 08:58
PROVIDERS: ATTEND Family Medicine
DX: C79.89 Secondary malignant neoplasm of other specified sites (principal); Z17.0 Estrogen receptor positive status [ER+]
CPT/HCPCS: 20206; 36415; 71045; 77012; 82947; 85049; 85610; 88173; 88305; 88341; 88342

== ENCOUNTER 2019-10-16 17:57 | Emergency (ER) | payer MEDICARE ==
[2019-10-16 18:14] VITALS: TEMP 98.6
[2019-10-16 18:38] LABS: Glucose,Whole Blood 226 mg/dL (75-99)
[2019-10-16] MEDS ORDERED: ONDANSETRON 4 MG/2 ML VIAL IVP STA (19:07)
[2019-10-16] MEDS ORDERED: SODIUM CHLORIDE 0.9% 1,000 ML IV STA (19:07)
--- NOTE | 2019-10-16 19:08 | ED ---
General Adult HPI <Froy Fink - Last Filed: 10/16/19 20:31> - General Source: patient Mode of arrival: ambulatory Limitations: no limitations <Augusto Flower - Last Filed: 10/19/19 07:07> - General Chief complaint: Weakness Stated complaint: not feeling well,weakness Time Seen by Provider: 10/16/19 18:21 - History of Present Illness Initial comments: Dictation was produced using [employer] dictation software. please excuse any grammatical, word or spelling errors. This patient was cared for during a federal and state declared state of emergency secondary to Covid 19 Chief Complaint: 69-year-old male presents with nausea, vomiting diarrhea and weakness History of Present Illness: A 69-year-old female patient has a finding suspicious for breast cancer. She went to see multiple specialists for burying opinions. Patient states she has not had any recent medicine changes however she was started on a rick medication. She does not know the name of this medication. Patient states she's been feeling weak. She has decreased appetite. Been having diarrhea and also vomiting. She states her emesis is nonbilious not bloody. 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 Patient has no pain complaints. Denies any recent travel. The ROS documented in this emergency department record has been reviewed and confirmed by me. Those systems with pertinent positive or negative responses have been documented in the HPI. All other systems are other negative and/or noncontributory. PHYSICAL EXAM: General Impression: Alert and oriented x3, not in acute distress HEENT: Normocephalic atraumatic, extra-ocular movements intact, pupils equal and reactive to light bilaterally, dry mucous memory Cardiovascular: Heart regular rate and rhythm Chest: Able to complete full sentences, no retractions, no tachypnea Abdomen: abdomen soft, non-tender, non-distended, no organomegaly Musculoskeletal: Pulses present and equal in all extremities, no peripheral edema Motor: no focal deficits noted Neurological: CN II-XII grossly intact, no focal motor or sensory deficits noted Skin: Intact with no visualized rashes Psych: Normal affect and mood ED course: 69-year-old female presents with decreased appetite, generalized weakness, nausea vomiting. Signs upon arrival shows heart rate of 112, rest of vital signs within acceptable limits. Laboratory evaluation obtained. CBC shows mild leukocytosis of 11.0. Rest of CBC unremarkable. Metabolic panel shows BUN of 29 and a creatinine 0.57. This concerning for dehydration. Patient has a lactic acidosis 2.9. This is likely secondary to starvation and dehydration. Recommended patient to be admitted for IV fluid hydration and medical moderate however patient rather be discharge. She wants to go home with nausea medications, hydrate herself up at home and follow-up with a primary care doctor. Patient tolerating by mouth at bedside after administration of antiemetics. Patient care is signed out to Dr. Fink. The patient didn't tolerate oral intake after completion of intravenous fluids patient can be discharged to home. She is strongly advised to follow-up with her PCP as soon as possible. EKG interpretation: Ventricular rate 114, sinus tachycardia, DC interval 112, QRS 80, QTc 454. No DC prolongation, no QTC prolongation, no ST or T-wave changes noted. EKG compared to 08/18/2019 showing no changes. Overall, this EKG is unremarkable (Augusto Flower) - Related Data Home Medications Medication Instructions Recorded Confirmed Anastrozole 1 mg PO DAILY 10/16/19 10/16/19 Cephalexin [Keflex] 500 mg PO Q12HR 10/16/19 10/16/19 Previous Rx's Medication Instructions Recorded metFORMIN HCL 850 mg PO AC-BID 30 Days #60 tablet 08/23/19 Ondansetron Odt [Zofran Odt] 4 mg PO Q8HR PRN #12 tab 10/16/19 Allergies Allergy/AdvReac Type Severity Reaction Status Date / Time Sulfa (Sulfonamide Allergy Rash/Hives Verified 10/16/19 19:54 Antibiotics) Review of Systems ROS Other: All systems not noted in ROS Statement are negative. <Froy Fikn - Last Filed: 10/16/19 20:31> ROS Other: All systems not noted in ROS Statement are negative. <Augusto Flower - Last Filed: 10/19/19 07:07> ROS Statement: Those systems with pertinent positive or pertinent negative responses have been documented in the HPI. Past Medical History Past Medical History: Cancer Additional Past Medical History / Comment(s): Chronic UTI, Right Breast CA, fistula stool coming into vaginal area, seeing Dr Napoles, admitted with DKA 08/18/2019--new onset diabetes History of Any Multi-Drug Resistant Organisms: None Reported Past Surgical History: Breast Surgery, Orthopedic Surgery Additional Past Surgical History / Comment(s): right breast mastectomy Past Psychological History: No Psychological Hx Reported Smoking Status: Never smoker Past Alcohol Use History: None Reported Past Drug Use History: None Reported - Past Family History Father Family Medical History: Congestive Heart Failure (CHF), CVA/TIA, Diabetes Mellitus, Myocardial Infarction ([place]) Mother Family Medical History: Diabetes Mellitus, Hyperlipidemia, Hypertension, Myocardial Infarction ([place]) <Augusto Flower - Last Filed: 10/19/19 07:07> General Exam Limitations: no limitations <Augusto Flower - Last Filed: 10/19/19 07:07> Course Vital Signs 10/16/19 10/16/19 18:11 20:37 Temperature 98.6 F Pulse Rate 112 H 98 Respiratory 18 16 Rate Blood Pressure 151/89 139/77 O2 Sat by Pulse 96 97 Oximetry Medical Decision Making - Lab Data Result diagrams: 10/16/19 18:37 10/16/19 18:37 <Froy Fink - Last Filed: 10/16/19 20:31> - Lab Data Result diagrams: 10/16/19 18:37 10/16/19 18:37 <Augusto Flower - Last Filed: 10/19/19 07:07> - Medical Decision Making Patient was endorsed me at our shift change. Patient is awake alert able to keep fluids down she was offered admission and does not want to stay. She'll be discharged no further nausea vomiting. She seemed to respond to IV hydration while (Froy Fink) - Lab Data Lab Results 10/16/19 10/16/19 10/16/19 Range/Units 18:36 18:37 18:37 WBC 11.0 H (3.8-10.6) k/uL RBC 5.02 (3.80-5.40) m/uL Hgb 15.1 D (11.4-16.0) gm/dL Hct 43.7 (34.0-46.0) % MCV 87.1 D (80.0-100.0) fL MCH 30.1 (25.0-35.0) pg MCHC 34.6 (31.0-37.0) g/dL RDW 13.2 (11.5-15.5) % Plt Count 439 (150-450) k/uL Neutrophils % 72 % Lymphocytes % 22 % Monocytes % 4 % Eosinophils % 1 % Basophils % 0 % Neutrophils # 7.9 H (1.3-7.7) k/uL Lymphocytes # 2.4 (1.0-4.8) k/uL Monocytes # 0.4 (0-1.0) k/uL Eosinophils # 0.1 (0-0.7) k/uL Basophils # 0.1 (0-0.2) k/uL Sodium 135 L (137-145) mmol/L Potassium 4.2 (3.5-5.1) mmol/L Chloride 98 (98-107) mmol/L Carbon Dioxide 22 (22-30) mmol/L Anion Gap 15 mmol/L BUN 29 H (7-17) mg/dL Creatinine 0.57 (0.52-1.04) mg/dL Est GFR (CKD-EPI)AfAm >90 (>60 ml/min/1.73 sqM) Est GFR (CKD-EPI)NonAf >90 (>60 ml/min/1.73 sqM) Glucose 243 H (74-99) mg/dL POC Glucose (mg/dL) 226 H (75-99) mg/dL POC Glu Cloth Piecer ID Alejandra Carranza Lactic Ac Sepsis Rflx Plasma Lactic Acid Yamil (0.7-2.0) mmol/L Calcium 10.7 H (8.4-10.2) mg/dL Magnesium 1.8 (1.6-2.3) mg/dL Total Bilirubin 0.4 (0.2-1.3) mg/dL AST 17 (14-36) U/L ALT 14 (4-34) U/L Alkaline Phosphatase 141 H (38-126) U/L Total Protein 8.4 H (6.3-8.2) g/dL Albumin 4.7 (3.5-5.0) g/dL 10/16/19 10/16/19 Range/Units 18:37 19:23 WBC (3.8-10.6) k/uL RBC (3.80-5.40) m/uL Hgb (11.4-16.0) gm/dL Hct (34.0-46.0) % MCV (80.0-100.0) fL MCH (25.0-35.0) pg MCHC (31.0-37.0) g/dL RDW (11.5-15.5) % Plt Count (150-450) k/uL Neutrophils % % Lymphocytes % % Monocytes % % Eosinophils % % Basophils % % Neutrophils # (1.3-7.7) k/uL Lymphocytes # (1.0-4.8) k/uL Monocytes # (0-1.0) k/uL Eosinophils # (0-0.7) k/uL Basophils # (0-0.2) k/uL Sodium (137-145) mmol/L Potassium (3.5-5.1) mmol/L Chloride (98-107) mmol/L Carbon Dioxide (22-30) mmol/L Anion Gap mmol/L BUN (7-17) mg/dL Creatinine (0.52-1.04) mg/dL Est GFR (CKD-EPI)AfAm (>60 ml/min/1.73 sqM) Est GFR (CKD-EPI)NonAf (>60 ml/min/1.73 sqM) Glucose (74-99) mg/dL POC Glucose (mg/dL) (75-99) mg/dL POC Glu Cloth Piecer ID Lactic Ac Sepsis Rflx Y Plasma Lactic Acid Yamil 2.9 H* (0.7-2.0) mmol/L Calcium (8.4-10.2) mg/dL Magnesium (1.6-2.3) mg/dL Total Bilirubin (0.2-1.3) mg/dL AST (14-36) U/L ALT (4-34) U/L Alkaline Phosphatase (38-126) U/L Total Protein (6.3-8.2) g/dL Albumin (3.5-5.0) g/dL Disposition Is patient prescribed a controlled substance at d/c from ED?: No <Froy Fink - Last Filed: 10/16/19 20:31> Is patient prescribed a controlled substance at d/c from ED?: No <Augusto Flower - Last Filed: 10/19/19 07:07> Clinical Impression: Nausea & vomiting, Dehydration Disposition: HOME SELF-CARE Condition: Good Instructions (If sedation given, give patient instructions): Dehydration (ED), Acute Nausea and Vomiting (ED) Prescriptions: Ondansetron Odt [Zofran Odt] 4 mg PO Q8HR PRN #12 tab PRN Reason: Nausea Referrals: Bridgette Chapman MD [Primary Care Provider] - 1-2 days
[2019-10-16 19:12] LABS: Basophils # (A) 0.1 k/uL (0-0.2); Basophils % (A) 0 %; Eosinophils # (A) 0.1 k/uL (0-0.7); Eosinophils % (A) 1 %; HCT 43.7 % (34.0-46.0); Lymphocytes # (A) 2.4 k/uL (1.0-4.8); Lymphocytes % (A) 22 %; MCH 30.1 pg (25.0-35.0); MCHC 34.6 g/dL (31.0-37.0); Monocytes # (A) 0.4 k/uL (0-1.0); Monocytes % (A) 4 %; Neutrophils # (A) 7.9 k/uL (1.3-7.7); Neutrophils % (A) 72 %; Platelet Count 439 k/uL (150-450); RBC 5.02 m/uL (3.80-5.40); RDW 13.2 % (11.5-15.5)
[2019-10-16 19:14] LABS: HGB 15.1 gm/dL (11.4-16.0); MCV 87.1 fL (80.0-100.0)
[2019-10-16 19:20] LABS: ALT 14 U/L (4-34); AST 17 U/L (14-36); African American GFR (CKD) >90 (>60 ml/min/1.73 sqM); Albumin 4.7 g/dL (3.5-5.0); Alkaline Phosphatase 141 U/L (38-126); Anion Gap 15 mmol/L; Blood Urea Nitrogen 29 mg/dL (7-17); Calcium 10.7 mg/dL (8.4-10.2); Carbon Dioxide 22 mmol/L (22-30); Chloride 98 mmol/L (98-107); Glucose 243 mg/dL (74-99); Magnesium 1.8 mg/dL (1.6-2.3); Non-African American GFR(CKD) >90 (>60 ml/min/1.73 sqM); Potassium 4.2 mmol/L (3.5-5.1); Sodium 135 mmol/L (137-145); Total Bilirubin 0.4 mg/dL (0.2-1.3); Total Protein 8.4 g/dL (6.3-8.2)
--- NOTE | 2019-10-16 19:39 | XR ---
EXAMINATION TYPE: XR abdomen acute w cxr DATE OF EXAM: 10/16/2019 COMPARISON: 07/16/2019 HISTORY: Nausea TECHNIQUE: 4 views FINDINGS: There is no heart failure nor confluent pneumonic infiltrate. There is right mastectomy. Th ere is no sign of intestinal obstruction or pneumoperitoneum. Fecal pattern is normal. There are no p athologic calcifications over the kidneys. IMPRESSION: Nonacute abdomen. No active cardiopulmonary disease. No change.
[2019-10-16] MEDS ORDERED: ONDANSETRON 4 MG ODT STARTER PACK 2 TAB BTL PO STA (19:50)
[2019-10-16 20:38] VITALS: BP 139/77; PULSE 98; RESP 16
== END 2019-10-16 20:38 | disposition home or self-care (01) ==
LOC: EC 17:57
DX: E86.0 Dehydration (principal); R11.2 Nausea with vomiting, unspecified; D72.829 Elevated white blood cell count, unspecified; E87.2 Acidosis; Z85.3 Personal history of malignant neoplasm of breast; Z79.899 Other long term (current) drug therapy; Z88.2 Allergy status to sulfonamides
CPT/HCPCS: 36415; 93005; 80053; 83605; 83735; 85025; 74022; 99285; 96374; 96361; J2405; S0119

== ENCOUNTER 2020-02-18 22:54 | Observation (INO) | payer MEDICARE ==
[2020-02-18] MEDS ORDERED: SODIUM CHLORIDE 0.9% 1,000 ML IV ONE (23:31)
[2020-02-19] MEDS: SODIUM CHLORIDE 0.9% 1,000 ML IV SCH ×3 (00:08→20:43)
[2020-02-19 00:24] LABS: Basophils % (A) 1 %; Eosinophils % (A) 1 %; HCT 38.4 % (34.0-46.0); HGB 12.8 gm/dL (11.4-16.0); Lymphocytes # (A) 0.6 k/uL (1.0-4.8); Lymphocytes % (A) 13 %; MCHC 33.4 g/dL (31.0-37.0); Mean Platelet Volume 7.1; Monocytes # (A) 0.3 k/uL (0-1.0); Monocytes % (A) 6 %; Neutrophils # (A) 3.8 k/uL (1.3-7.7); Neutrophils % (A) 78 %; Platelet Count 230 k/uL (150-450); RBC 4.13 m/uL (3.80-5.40); RDW 12.2 % (11.5-15.5); WBC 4.9 k/uL (3.8-10.6)
[2020-02-19 00:28] LABS: Appearance,Urine Cloudy (Clear); Bacteria,Urine Rare /hpf; Bilirubin,Urine Negative (Negative); Blood,Urine Small (Negative); Color,Urine Yellow; Glucose,Urine (UA) 3+ (Negative); Ketones,Urine 1+ (Negative); Leukocyte Esterase,Urine Large (Negative); Mucus,Urine Occasional /hpf; Nitrite,Urine Positive (Negative); PH, Urine 5.5 (5.0-8.0); Protein,Urine 1+ (Negative); RBC,Urine 24 /hpf (0-5); Specific Gravity,Urine 1.017 (1.001-1.035); Squamous Epithelial Cell,Urine 3 /hpf (0-4); Urobilinogen,Urine <2.0 mg/dL (<2.0); WBC,Urine >182 /hpf (0-5)
[2020-02-19 00:49] LABS: ALT 13 U/L (4-34); AST 21 U/L (14-36); African American GFR (CKD) >90 (>60 ml/min/1.73 sqM); Albumin 3.6 g/dL (3.5-5.0); Alkaline Phosphatase 105 U/L (38-126); Anion Gap 9 mmol/L; Blood Urea Nitrogen 13 mg/dL (7-17); Calcium 8.9 mg/dL (8.4-10.2); Carbon Dioxide 23 mmol/L (22-30); Chloride 103 mmol/L (98-107); Glucose 259 mg/dL (74-99); Non-African American GFR(CKD) >90 (>60 ml/min/1.73 sqM); Potassium 3.4 mmol/L (3.5-5.1); Sodium 135 mmol/L (137-145); Total Bilirubin 0.5 mg/dL (0.2-1.3); Total Protein 6.9 g/dL (6.3-8.2)
[2020-02-19] MEDS ORDERED: NALOXONE 0.4 MG/ML 1 ML VIAL IV PRN (00:54)
[2020-02-19] MEDS ORDERED: IBUPROFEN 400 MG TAB PO PRN (00:54)
--- NOTE | 2020-02-19 01:00 | ED ---
General Adult HPI - General Source: patient, EMS, RN notes reviewed, old records reviewed Mode of arrival: EMS Limitations: no limitations <Devin Llanes - Last Filed: 02/19/20 01:22> <Julio Cesar Murray - Last Filed: 02/19/20 07:46> - General Chief complaint: Recheck/Abnormal Lab/Rx Stated complaint: Possible sepsis Time Seen by Provider: 02/18/20 22:59 - History of Present Illness Initial comments: 69-year-old female patient the ED. Patient's history of breast cancer with recent recurrence. Patient is currently receiving external beam radiation discomfort did 33 treatments. No chemotherapy. Patient reportedly has not been feeling well for the last 3 days. Went to [facility]. Patient was found to be febrile. Further workup they discovered urinary tract infection and pneumonia on chest x-ray. They transferred patient to our facilitypatient as patients oncologist is here. Patient reports that she had a cough and some discharge is chronic for her. Denies any abdominal pain. Denies any chest pain. Denies any other acute complaints. Systemic: Pt denies fatigue,rash. Pt denies weakness, night sweats, weight loss. Neuro: Pt denies headache, visual disturbances, syncope or pre-syncope. HEENT: Pt denies ocular discharge or irritation, otalgia, rhinorrhea, pharyngitis or notable lymphadenopathy. Cardiopulmonary: Pt denies chest pain, SOB, heart palpitations, dyspnea on exertion. Abdominal/GI: Pt denies abdominal pain, n/v/d. : Pt denies burning w/ urination, frequency/urgency. Denies new onset urinary or bowel incontinence. MSK: Pt denies myalgia, loss of strength or function in extremities. Neuro: Pt denies new onset weakness, paresthesias. (Devin Llanes) - Related Data Home Medications Medication Instructions Recorded Confirmed Anastrozole 1 mg PO DAILY 10/16/19 02/19/20 Previous Rx's Medication Instructions Recorded metFORMIN HCL 850 mg PO AC-BID 30 Days #60 tablet 08/23/19 Allergies Allergy/AdvReac Type Severity Reaction Status Date / Time Sulfa (Sulfonamide Allergy Rash/Hives, Verified 02/19/20 06:51 Antibiotics) swelling, rapid heart rate Review of Systems ROS Other: All systems not noted in ROS Statement are negative. <Devin Llanes - Last Filed: 02/19/20 01:22> ROS Other: All systems not noted in ROS Statement are negative. <Julio Cesar Murray - Last Filed: 02/19/20 07:46> ROS Statement: Those systems with pertinent positive or pertinent negative responses have been documented in the HPI. Past Medical History Past Medical History: Cancer, Diabetes Mellitus Additional Past Medical History / Comment(s): Chronic UTI, Right Breast CA, fistula stool coming into vaginal area, seeing Dr Napoles, admitted with DKA 08/18/2019--new onset diabetes History of Any Multi-Drug Resistant Organisms: None Reported Past Surgical History: Breast Surgery, Orthopedic Surgery Additional Past Surgical History / Comment(s): right breast mastectomy, left femur surgery Past Psychological History: No Psychological Hx Reported Smoking Status: Never smoker Past Alcohol Use History: None Reported Past Drug Use History: None Reported - Past Family History Father Family Medical History: Congestive Heart Failure (CHF), CVA/TIA, Diabetes Mellitus, Myocardial Infarction ([place]) Mother Family Medical History: Diabetes Mellitus, Hyperlipidemia, Hypertension, Myocardial Infarction ([place]) <Devin Llanes - Last Filed: 02/19/20 01:22> General Exam Limitations: no limitations <Devin Llanes - Last Filed: 02/19/20 01:22> - General Exam Comments Initial Comments: Constitutional: NAD, AOX3, Pt has pleasant affect. HEENT: NC/AT, trachea midline, neck supple, no lymphadenopathy. Posterior pharynx non erythematous, without exudates. External ears appear normal, without discharge. Mucous membranes moist. Eyes PERRLA, EOM intact. There is no scleral icterus. No pallor noted. Cardiopulmonary: RRR, no murmurs, rubs or gallops, no JVD noted. Lungs CTAB in anterior and posterior chen. No peripheral edema. Abdominal exam: Abdomen soft and non-distended. Abdomen non-tender to palpation in all 4 quadrants. Bowel sounds active in LLQ. No hepatosplenomegaly. No ecchymosis Neuro: CN II-XII grossly intact. No nuchal rigidity. No raccon eyes, no boone sign, no hemotympanum. No cervical spinal tenderness. MSK: No posterior calf tenderness bilaterally, homans sign negative bilaterally. Posterior tibialis and radial pulse +2 bilaterally. Sensation intact in upper and lower extremities. Full active ROM in upper and lower extremities, 5/5 stregnth. (Devin Llanes) Course Vital Signs 02/18/20 02/18/20 22:56 23:45 Temperature 98.1 F Pulse Rate 104 H Respiratory 16 16 Rate Blood Pressure 138/91 O2 Sat by Pulse 97 Oximetry Medical Decision Making - Lab Data Result diagrams: 02/19/20 00:04 02/19/20 00:04 <Devin Llanes - Last Filed: 02/19/20 01:22> - Lab Data Result diagrams: 02/19/20 00:04 02/19/20 00:04 <Julio Cesar Murray - Last Filed: 02/19/20 07:46> - Medical Decision Making 69-year-old female patient ED from transfer. Patient transferred for her urinary tract infection and pneumonia. Patient had a negative covered test that [facility]. Liver investigations revealed urinary tract infection. Chest x-ray was evaluated by myself and Enrrique Osborne, does display possible mild pneumonia, RLL. Patient will be continued on ceftriaxone and azithromycin and admitted for further evaluation. Case discussed with Dr. Osuna. (Devin Llanes) I saw this patient in conjunction with the physician pediatric assistant. I performed independent history and physical exam. Agree with case management. (Julio Cesar Murray) Disposition Is patient prescribed a controlled substance at d/c from ED?: No <Devin Llanes - Last Filed: 02/19/20 01:22> <Julio Cesar Murray - Last Filed: 02/19/20 07:46> Clinical Impression: UTI (urinary tract infection), Pneumonia Disposition: ADMITTED IP TO THIS HOSP Condition: Serious
[2020-02-19 02:30] LABS: Glucose,Whole Blood 221 mg/dL (75-99)
[2020-02-19] MEDS: ACETAMINOPHEN TAB 325 MG TAB PO PRN ×2 (05:11→20:45)
[2020-02-19 06:31] LABS: Glucose,Whole Blood 231 mg/dL (75-99)
[2020-02-19] MEDS: INSULIN ASPART (NovoLOG) 100 UNIT/ML VIAL SQ SCH ×4 (07:56→20:41)
[2020-02-19] MEDS: AZITHROMYCIN 500 MG in SODIUM CHLORIDE 0.9% 250 ML IVPB SCH (08:43)
--- NOTE | 2020-02-19 09:39 | XR ---
EXAMINATION TYPE: XR chest 2V DATE OF EXAM: 02/19/2020 CLINICAL HISTORY: cough. TECHNIQUE: Frontal and lateral view of the chest. COMPARISON: Outside institution 02/10/2020 chest radiograph FINDINGS: Elevation of the right hemidiaphragm likely due to atelectasis is redemonstrated from 02/17, and new versus 09/17/2019. Surgical clips of the right axilla. The cardiomediastinal silhouette is within normal limits for size. Pulmonary vasculature is normal. Small right pleural effusion. The re is no focal air space opacity or pneumothorax seen. The osseous structures are intact. IMPRESSION: Small right pleural effusion and right basilar atelectasis.
[2020-02-19 11:30] LABS: Glucose,Whole Blood 227 mg/dL (75-99)
[2020-02-19] MEDS: ENOXAPARIN 40 MG/0.4 ML SYRINGE SQ SCH (12:10)
[2020-02-19] MEDS: ANASTROZOLE 1 MG TAB PO SCH (12:11)
--- NOTE | 2020-02-19 15:36 | P.CNPUL ---
History of Present Illness Consult date: 02/19/20 Reason for consult: pleural effusion History of present illness: 69-year-old female patient with known history of metastatic breast cancer. She was originally diagnosed back in 1981 underwent mastectomy and after many years, the patient developed a red lesion that was biopsied back in August 2019 and was consistent with metastatic adenocarcinoma of the breast primary. The patient was given a total of 32 sessions of radiation to her right chest. Please refer to the PET scan that was done on 08/08/2019. The patient had a new right anterior right osseous lytic lesion that was sampled this was consistent with malignancy. The patient also has recurrent hospitalizations for frequent UTIs. 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 coli on multiple occasions. During this current admission, the patient went initially to an outside hospital where she was having tiredness and fatigue and tachycardia not feeling well for the past 3 days. She came in to [facility]. She was diagnosed having a UTI, recurrent event. She was transferred to our hospital for further care. Her white cell count is at 4.9. Her UAs obviously abnormal with more than 182 WBCs and bacteria. The patient was started on IV Rocephin. Zithromax was added due to suspicion for pneumonia. Mother the chest x-ray showed a moderate-sized right-sided pleural effusion which is a new finding compared to the previous x- rays seen earlier. She is currently on Arimidex. Review of Systems Constitutional: Reports fatigue, Reports fever, Reports weakness Eyes: denies as per HPI, denies blurred vision, denies bulging eye, denies decreased vision, denies diplopia, denies discharge, denies dry eye, denies irritation, denies itching, denies pain, denies photophobia, denies loss of peripheral vision, denies loss of vision, denies tunnel vision/blind spots Ears: deny: decreased hearing, ear discharge, earache, tinnitus Ears, nose, mouth and throat: Denies headache, Denies sore throat Breasts: right: as per HPI (Patient has a mastectomy for breast cancer) Cardiovascular: Reports dyspnea on exertion Respiratory: Reports dyspnea Gastrointestinal: Reports as per HPI Genitourinary: Reports as per HPI, Reports vaginal discharge Menstruation: Reports as per HPI Musculoskeletal: Reports as per HPI Musculoskeletal: absent: ankle pain, ankle stiffness, ankle swelling Integumentary: Reports as per HPI Neurological: Reports as per HPI Psychiatric: Reports as per HPI Endocrine: Reports as per HPI Hematologic/Lymphatic: Reports as per HPI Allergic/Immunologic: Reports as per HPI Past Medical History Past Medical History: Cancer, Diabetes Mellitus Additional Past Medical History / Comment(s): Chronic UTI, Right Breast CA, fistula stool coming into vaginal area, seeing Dr Napoles, admitted with DKA 08/18/2019--new onset diabetes History of Any Multi-Drug Resistant Organisms: None Reported Past Surgical History: Breast Surgery, Orthopedic Surgery Additional Past Surgical History / Comment(s): right breast mastectomy, left femur surgery Past Anesthesia/Blood Transfusion Reactions: No Reported Reaction Past Psychological History: No Psychological Hx Reported Smoking Status: Never smoker Past Alcohol Use History: None Reported Past Drug Use History: None Reported - Past Family History Father Family Medical History: Congestive Heart Failure (CHF), CVA/TIA, Diabetes Mellitus, Myocardial Infarction ([place]) Mother Family Medical History: Congestive Heart Failure (CHF), Diabetes Mellitus, Hyperlipidemia, Hypertension, Myocardial Infarction ([place]) Medications and Allergies Home Medications Medication Instructions Recorded Confirmed Type metFORMIN HCL 850 mg PO AC-BID 30 Days #60 tablet 08/23/19 02/19/20 Rx Anastrozole 1 mg PO DAILY 10/16/19 02/19/20 History Allergies Allergy/AdvReac Type Severity Reaction Status Date / Time Sulfa (Sulfonamide Allergy Rash/Hives, Verified 02/19/20 06:51 Antibiotics) swelling, rapid heart rate Physical Exam Vitals: Vital Signs Temp Pulse Pulse Pulse Resp BP BP 02/19/20 15:13 131 H 16 155/79 02/19/20 14:05 98.6 F 120 H 16 156/80 02/19/20 07:57 98.5 F 100 14 129/66 02/19/20 03:59 99.6 F 110 H 16 147/80 02/19/20 01:26 98.2 F 103 H 16 139/80 02/18/20 23:45 16 02/18/20 22:56 98.1 F 104 H 16 138/91 Pulse Ox 02/19/20 15:13 96 02/19/20 14:05 96 02/19/20 07:57 95 02/19/20 03:59 96 02/19/20 01:26 96 02/18/20 23:45 02/18/20 22:56 97 Intake and Output 02/19/20 02/19/20 02/19/20 06:59 14:59 22:59 Intake Total 400 Balance 400 Intake: Oral 400 Other: Voiding Method Toilet Toilet # Voids 2 Weight 58.967 kg The patient appeared well nourished and normally developed. Vital signs as documented. Head exam is unremarkable. No scleral icterus or corneal arcus noted. Neck is without jugular venous distension, thyromegaly, or carotid bruits. Carotid upstrokes are brisk bilaterally. Lungs are diminished breath on the right lung base along with dullness to percussion consistent with pleural effusion Cardiac exam reveals the PMI to be normally sized and situated. Rhythm is regular. First and second heart sounds normal. No murmurs, rubs or gallops. Abdominal exam reveals normal bowel sounds, no masses, no organomegaly and no aortic enlargement. Extremities are nonedematous and both femoral and pedal pulses are normal.Examination of the skin revealed no evidence of significant rashes, suspicious appearing nevi or other concerning lesions. The patient has a right mastectomy scar over the right anterior breast area. The patient also has radiation skin changes in the posterior and anterior right rib cage. Otherwise, the rest of the skin examination is within normal limits. Results - Laboratory Findings CBC and BMP: 02/19/20 00:04 02/19/20 00:04 Abnormal lab findings: Abnormal Labs 02/19/20 02/19/20 02/19/20 00:04 00:04 00:04 Lymphocytes # 0.6 L Sodium 135 L Potassium 3.4 L Creatinine 0.45 L Glucose 259 H POC Glucose (mg/dL) Urine Appearance Cloudy H Urine Protein 1+ H Urine Glucose (UA) 3+ H Urine Ketones 1+ H Urine Blood Small H Urine Nitrite Positive H Ur Leukocyte Esterase Large H Urine RBC 24 H Urine WBC >182 H Urine WBC Clumps Few H Urine Bacteria Rare H Urine Mucus Occasional H 02/19/20 02/19/20 02/19/20 02:22 06:23 11:28 Lymphocytes # Sodium Potassium Creatinine Glucose POC Glucose (mg/dL) 221 H 231 H 227 H Urine Appearance Urine Protein Urine Glucose (UA) Urine Ketones Urine Blood Urine Nitrite Ur Leukocyte Esterase Urine RBC Urine WBC Urine WBC Clumps Urine Bacteria Urine Mucus - Diagnostic Findings Chest x-ray: image reviewed Assessment and Plan Plan: 1 right-sided pleural effusion, likely malignant 2 metastatic breast cancer. The patient is a right mastectomy and many years following her mastectomy she was diagnosed having a osseous lesion involving the right rib cage and the patient was started on radiation therapy and is currently on Arimidex. 3 frequent UTIs with E. coli 4 rectovaginal fistula 5 diabetes mellitus 6 sinus tachycardia related to underlying UTI Plan We'll proceed with diagnostic and therapeutic thoracentesis Procedure was explained The fluid will be sent for cytology, consider malignant pleural effusion Treatment of UTI with IV Rocephin Zithromax can be discontinued We'll continue to follow
--- NOTE | 2020-02-19 15:38 | P.PCN ---
Date of Procedure: 02/19/20 Preoperative Diagnosis: Right pleural effusion Postoperative Diagnosis: Right pleural effusion Procedure(s) Performed: Thoracentesis Anesthesia: local Surgeon: James Tillman Estimated Blood Loss (ml): 0 Pathology: other Condition: stable Disposition: floor Operative Findings: A time out was performed and the chest x-ray was reviewed, the appropriate side was confirmed and marked. My hands were washed immediately prior to the procedure. I wore a surgical cap, mask with protective eyewear, sterile gown and sterile gloves throughout the procedure. The patient was prepped and draped in a sterile manner using chlorhexidine scrub after the appropriate level was percussed and confirmed by ultrasound. 1% lidocaine was used to anesthesize the skin, subcutaneous tissue, superior aspect of the rib periosteum and parietal pleura. A finder needle was then introduced over the superior aspect of the rib to locate the pleural fluid; 2colored fluid was aspirated at a depth of approximately 2 cm. A 10-blade scalpel was used to tre the skin at the insertion site. The [id number] needle was then introduced through the skin incision into the pleural space using negative aspiration pressure and the red colometric indicator to confirm appropriate positioning of the needle. The thoracentesis catheter was then threaded without difficulty. 850 ml of turbid colored fluid was removed without difficulty. The catheter was then removed. No immediate complications were noted during the procedure. A post-procedure chest x-ray is pending at the time of this note. The fluid will be sent for studies. Estimated blood loss is 0cc
--- NOTE | 2020-02-19 15:59 | XR ---
EXAMINATION TYPE: XR chest 1V DATE OF EXAM: 02/19/2020 CLINICAL HISTORY: right thoracentesis. TECHNIQUE: Portable frontal view of the chest. COMPARISON: Outside institution 02/18/2020 and same day 02/19/2020 chest radiograph FINDINGS: The cardiomediastinal silhouette is within normal limits for size. Pulmonary vasculature i s normal. Decreased size of small right pleural effusion with trace residual pleural fluid. No pneumo thorax status post right thoracentesis. The osseous structures are intact. IMPRESSION: No pneumothorax status post right thoracentesis.
--- NOTE | 2020-02-19 16:53 | P.CONS ---
History of Present Illness - Reason for Consult Consult date: 02/19/20 breast cancer Requesting physician: Devin Llanes - Chief Complaint fever/chills - History of Present Illness Mrs. Johnson is a very pleasant female pt of Dr. Fernandes who has a remote history of right breast cancer, 1991, treated in [place] with rt mastectomy and axillary nodes dissection, 3 positive nodes, adjuvant chemo and 5 years of tamoxifen. No adjuvant radiation therapy. She has known rectovaginal fistula for 35 years, in 07/10 she was planing on having it repaired and, as part of her evaluation, she had a CXR with incidental finding of a lesion on right chest wall. PET scan on 08/08/19 revealed a non specific 6 mm RUL nodule, however, there was soft tissue thickening with hypermetabolic uptake nearby anterior fourth rib nearby the area of possible lytic rib lesion. 09/17/19 she had FNA of right chest wall lesion, biopsy was positive for adenocarcinoma, consistent with breast primary, ER/NH+(91%/91%),HER2/JASON negative. [place] to be local recurrent, rib involvement is under chest wall recurrence, no other disease. Pt had surgery in September 2019, completed radiation last week, she is currently on arimidex, tolerating well. She is due to f/u with Dr. Fernandes, post treatment, next week. Pt was having episodes of feeling hot, then having chills, x 1 week, persistent, she was starting to fell unwell in general, she did note dysuria. She decided to seek medical care, work up suspicious for pneumonia, new pleural effusion and UTI. She is feeling much better after being on abx, no fevers, chills, N,V, cough, SOB, KYLE, no current dysuria, hematuria, she has persistent rectovaginal fistula she is anxious to have repaired. No other c/o on a 14 point ROS. Review of Systems 14 point ROS is negative except as stated in HPI Past Medical History Past Medical History: Cancer, Diabetes Mellitus Additional Past Medical History / Comment(s): Chronic UTI, Right Breast CA, fistula stool coming into vaginal area, seeing Dr Napoles, admitted with DKA 08/18/2019--new onset diabetes History of Any Multi-Drug Resistant Organisms: None Reported Past Surgical History: Breast Surgery, Orthopedic Surgery Additional Past Surgical History / Comment(s): right breast mastectomy, left femur surgery Past Anesthesia/Blood Transfusion Reactions: No Reported Reaction Past Psychological History: No Psychological Hx Reported Smoking Status: Never smoker Past Alcohol Use History: None Reported Past Drug Use History: None Reported - Past Family History Father Family Medical History: Congestive Heart Failure (CHF), CVA/TIA, Diabetes Mellitus, Myocardial Infarction ([place]) Mother Family Medical History: Congestive Heart Failure (CHF), Diabetes Mellitus, Hyperlipidemia, Hypertension, Myocardial Infarction ([place]) Medications and Allergies Home Medications Medication Instructions Recorded Confirmed Type metFORMIN HCL 850 mg PO AC-BID 30 Days #60 tablet 08/23/19 02/19/20 Rx Anastrozole 1 mg PO DAILY 10/16/19 02/19/20 History Allergies Allergy/AdvReac Type Severity Reaction Status Date / Time Sulfa (Sulfonamide Allergy Rash/Hives, Verified 02/19/20 06:51 Antibiotics) swelling, rapid heart rate Physical Exam Vitals: Vital Signs Temp Pulse Pulse Pulse Resp BP BP 02/19/20 14:05 98.6 F 120 H 16 156/80 02/19/20 07:57 98.5 F 100 14 129/66 02/19/20 03:59 99.6 F 110 H 16 147/80 02/19/20 01:26 98.2 F 103 H 16 139/80 02/18/20 23:45 16 02/18/20 22:56 98.1 F 104 H 16 138/91 Pulse Ox 02/19/20 14:05 96 02/19/20 07:57 95 02/19/20 03:59 96 02/19/20 01:26 96 02/18/20 23:45 02/18/20 22:56 97 Intake and Output 02/18/20 02/19/20 02/19/20 22:59 06:59 14:59 Intake Total 400 Balance 400 Intake: Oral 400 Other: Voiding Method Toilet Toilet # Voids 2 Weight 58.967 kg 58.967 kg - Constitutional General appearance: average body habitus, cooperative, no acute distress - EENT Eyes: anicteric sclerae, EOMI ENT: hearing grossly normal, normal oropharynx - Neck Neck: no lymphadenopathy - Respiratory Respiratory: right: rales (few scattered, soft cracles on deep inspiration), bilateral: CTA - Cardiovascular Rhythm: regular Heart sounds: normal: S1, S2 Abnormal Heart Sounds: no systolic murmur, no diastolic murmur, no rub, no S3 Gallop, no S4 Gallop, no click, no other leg Peripheral Edema: bilateral: None - Gastrointestinal General gastrointestinal: no absent bowel sounds, no decreased bowel sounds, no distended, no hepatomegaly, no hyperactive bowel sounds, normal bowel sounds, no organomegaly, no rigid, no scaphoid, no soft, no splenomegaly, no tenderness, no umbilical hernia, no ventral hernia - Integumentary Right chest wall surgical scar, scar tissue, bronzing of the skin (Rad changes), dryness and peeling on the rt posterior scapula, no open areas. - Neurologic Neurologic: CNII-XII intact - Musculoskeletal Rt axilla muscles and tendons are tight from surgery, no lymphedema Musculoskeletal: strength equal bilaterally - Psychiatric Psychiatric: A&O x's 3, appropriate affect, intact judgment & insight Results CBC & Chem 7: 02/19/20 00:04 02/19/20 00:04 Labs: Abnormal Lab Results - Last 24 Hours (Table) 02/19/20 02/19/20 02/19/20 Range/Units 00:04 00:04 00:04 Lymphocytes # 0.6 L (1.0-4.8) k/uL Sodium 135 L (137-145) mmol/L Potassium 3.4 L (3.5-5.1) mmol/L Creatinine 0.45 L (0.52-1.04) mg/dL Glucose 259 H (74-99) mg/dL POC Glucose (mg/dL) (75-99) mg/dL Urine Appearance Cloudy H (Clear) Urine Protein 1+ H (Negative) Urine Glucose (UA) 3+ H (Negative) Urine Ketones 1+ H (Negative) Urine Blood Small H (Negative) Urine Nitrite Positive H (Negative) Ur Leukocyte Esterase Large H (Negative) Urine RBC 24 H (0-5) /hpf Urine WBC >182 H (0-5) /hpf Urine WBC Clumps Few H (None) /hpf Urine Bacteria Rare H (None) /hpf Urine Mucus Occasional H (None) /hpf 02/19/20 02/19/20 02/19/20 Range/Units 02:22 06:23 11:28 Lymphocytes # (1.0-4.8) k/uL Sodium (137-145) mmol/L Potassium (3.5-5.1) mmol/L Creatinine (0.52-1.04) mg/dL Glucose (74-99) mg/dL POC Glucose (mg/dL) 221 H 231 H 227 H (75-99) mg/dL Urine Appearance (Clear) Urine Protein (Negative) Urine Glucose (UA) (Negative) Urine Ketones (Negative) Urine Blood (Negative) Urine Nitrite (Negative) Ur Leukocyte Esterase (Negative) Urine RBC (0-5) /hpf Urine WBC (0-5) /hpf Urine WBC Clumps (None) /hpf Urine Bacteria (None) /hpf Urine Mucus (None) /hpf Microbiology - Last 24 Hours (Table) 02/19/20 00:04 Urine Culture - Preliminary Urine,Voided Chest x-ray: report reviewed Assessment and Plan (1) Breast cancer Narrative/Plan: Surgery and XRT for local recurrence. Cont arimidex. Pending fluid cytology from pl effusion Current Visit: Yes Status: Acute Priority: High Code(s): C50.919 - MALIGNANT NEOPLASM OF UNSP SITE OF UNSPECIFIED FEMALE BREAST SNOMED Code(s): 444460477 (2) Pleural effusion Current Visit: Yes Status: Acute Priority: High Code(s): J90 - PLEURAL EFFUSION, NOT ELSEWHERE CLASSIFIED SNOMED Code(s): 58437998 (3) Pneumonia Narrative/Plan: Pulmonary following, abx ordered. Pt did have a thoracentesis >800cc fluid removed, pending cytology. Pt recently completed XRT to the chest wall, possibly some radiation induced pneumonitis? Current Visit: Yes Status: Acute Priority: High Code(s): J18.9 - PNEUMONIA, UNSPECIFIED ORGANISM SNOMED Code(s): 174038474 (4) UTI (urinary tract infection) Narrative/Plan: Empiric abx ordered. C&S pending Current Visit: Yes Status: Acute Priority: High Code(s): N39.0 - URINARY TRACT INFECTION, SITE NOT SPECIFIED SNOMED Code(s): 46879394 (5) Rectovaginal fistula Narrative/Plan: F/U Dr. Napoles for surgical plans Current Visit: No Status: Chronic Priority: Low Code(s): N82.3 - FISTULA OF VAGINA TO LARGE INTESTINE SNOMED Code(s): 00225186
[2020-02-19 16:57] LABS: Glucose,Whole Blood 238 mg/dL (75-99)
--- NOTE | 2020-02-19 17:26 | P.HPIM ---
History of Present Illness H&P Date: 02/19/20 Marely Johnson, is a 69-year-old female who presented to [facility] with cough fatigue and tachycardia she was evaluated at [facility] reportedly Covid 19 testing was negative patient was transferred to [facility] for further evaluation , patient had evidence of urinary tract infection she also had right lower lobe infiltrate with small effusion she was admitted to medical floor she was started on IV antibiotics pulmonary consultation was requested. Patient has a known history of breast cancer she underwent mastectomy in 1981, she had metastatic adenocarcinoma in August 2019 including osseous lytic lesions, patient underwent radiation treatment of the right chest. Patient was seen and examined on the medical floor she is alert and oriented 3 she is complaining of fatigue and occasional cough she has shortness of breath with activity otherwise she denies any complaints there is no fever or chills no headache or dizziness no chest pain no nausea or vomiting no abdominal pain no diarrhea no blood in the stools no burning with urination no frequency or urgenc y no hematuria. Past Medical History Past Medical History: Cancer, Diabetes Mellitus Additional Past Medical History / Comment(s): Chronic UTI, Right Breast CA, fistula stool coming into vaginal area, seeing Dr Napoles, admitted with DKA 08/18/2019--new onset diabetes History of Any Multi-Drug Resistant Organisms: None Reported Past Surgical History: Breast Surgery, Orthopedic Surgery Additional Past Surgical History / Comment(s): right breast mastectomy, left femur surgery Past Anesthesia/Blood Transfusion Reactions: No Reported Reaction Past Psychological History: No Psychological Hx Reported Smoking Status: Never smoker Past Alcohol Use History: None Reported Past Drug Use History: None Reported - Past Family History Father Family Medical History: Congestive Heart Failure (CHF), CVA/TIA, Diabetes Mellitus, Myocardial Infarction ([place]) Mother Family Medical History: Congestive Heart Failure (CHF), Diabetes Mellitus, Hyperlipidemia, Hypertension, Myocardial Infarction ([place]) Medications and Allergies Home Medications Medication Instructions Recorded Confirmed Type metFORMIN HCL 850 mg PO AC-BID 30 Days #60 tablet 08/23/19 02/19/20 Rx Anastrozole 1 mg PO DAILY 10/16/19 02/19/20 History Allergies Allergy/AdvReac Type Severity Reaction Status Date / Time Sulfa (Sulfonamide Allergy Rash/Hives, Verified 02/19/20 06:51 Antibiotics) swelling, rapid heart rate Physical Exam Vitals: Vital Signs Temp Pulse Pulse Pulse Resp BP BP 02/19/20 07:57 98.5 F 100 14 129/66 02/19/20 03:59 99.6 F 110 H 16 147/80 02/19/20 01:26 98.2 F 103 H 16 139/80 02/18/20 23:45 16 02/18/20 22:56 98.1 F 104 H 16 138/91 Pulse Ox 02/19/20 07:57 95 02/19/20 03:59 96 02/19/20 01:26 96 02/18/20 23:45 02/18/20 22:56 97 Intake and Output 02/18/20 02/19/20 02/19/20 22:59 06:59 14:59 Intake Total 400 Balance 400 Intake: Oral 400 Other: Voiding Method Toilet Weight 58.967 kg 58.967 kg In general patient is alert and oriented 3 in no distress HEENT head normocephalic and atraumatic Neck is supple no JVD no goiter no lymphadenopathy Chest exam reveals a few scattered rhonchi no wheezing Cardiac exam reveals regular heart sounds S1 and S2 no gallops no murmurs Abdomen is soft nontender no organomegaly with normal bowel sounds Extremity exam reveals no edema no cyanosis or clubbing Neurological examination reveals no gross focal deficit Results CBC & Chem 7: 02/19/20 00:04 02/19/20 00:04 Labs: Abnormal Lab Results - Last 24 Hours (Table) 02/19/20 02/19/20 02/19/20 Range/Units 00:04 00:04 00:04 Lymphocytes # 0.6 L (1.0-4.8) k/uL Sodium 135 L (137-145) mmol/L Potassium 3.4 L (3.5-5.1) mmol/L Creatinine 0.45 L (0.52-1.04) mg/dL Glucose 259 H (74-99) mg/dL POC Glucose (mg/dL) (75-99) mg/dL Urine Appearance Cloudy H (Clear) Urine Protein 1+ H (Negative) Urine Glucose (UA) 3+ H (Negative) Urine Ketones 1+ H (Negative) Urine Blood Small H (Negative) Urine Nitrite Positive H (Negative) Ur Leukocyte Esterase Large H (Negative) Urine RBC 24 H (0-5) /hpf Urine WBC >182 H (0-5) /hpf Urine WBC Clumps Few H (None) /hpf Urine Bacteria Rare H (None) /hpf Urine Mucus Occasional H (None) /hpf 02/19/20 02/19/20 02/19/20 Range/Units 02:22 06:23 11:28 Lymphocytes # (1.0-4.8) k/uL Sodium (137-145) mmol/L Potassium (3.5-5.1) mmol/L Creatinine (0.52-1.04) mg/dL Glucose (74-99) mg/dL POC Glucose (mg/dL) 221 H 231 H 227 H (75-99) mg/dL Urine Appearance (Clear) Urine Protein (Negative) Urine Glucose (UA) (Negative) Urine Ketones (Negative) Urine Blood (Negative) Urine Nitrite (Negative) Ur Leukocyte Esterase (Negative) Urine RBC (0-5) /hpf Urine WBC (0-5) /hpf Urine WBC Clumps (None) /hpf Urine Bacteria (None) /hpf Urine Mucus (None) /hpf Microbiology - Last 24 Hours (Table) 02/19/20 00:04 Urine Culture - Preliminary Urine,Voided Thrombosis Risk Factor Assmnt - Choose All That Apply Each Risk Factor Represents 2 Points: Age 61-74 years Thrombosis Risk Factor Assessment Total Risk Factor Score: 2 Thrombosis Risk Factor Assessment Level: Low Risk Assessment and Plan Plan: 1. Urinary tract infection 2. Right basilar infiltrate with small pleural effusion 3. History of breast cancer 4. Underlying history of [id number] diabetes mellitus 5. Covid 19 testing negative at outside hospital 6. Remote history of breast cancer, with new lesions positive for metastatic adenocarcinoma of the breast in August 2019 with radiation therapy. At this time patient is admitted to medical floor and started on IV antibiotics Pulmonary consultation requested For DVT prophylaxis patient started on Lovenox For GI prophylaxis patient on Protonix Will follow closely
[2020-02-19] MEDS: metFORMIN 850 MG TAB PO SCH (17:58)
[2020-02-19 18:24] LABS: Appearance,BF Clear; Color,BF Yellow; Nucleated Cells, Body Fluid 710 /uL
[2020-02-19 18:25] LABS: Mononuclear WBC,Body Fluid 94 %; Polynuclear WBC,Body Fluid 6 %; RBC, Body Fluid 280 /uL; Total Cells Counted,Body Fluid 100
[2020-02-19 20:39] LABS: Glucose,Whole Blood 286 mg/dL (75-99)
[2020-02-20 01:00] LABS: Total Protein, Body Fluid 4260 mg/dL
[2020-02-20 01:15] LABS: Glucose, BF Source Pleural Fluid; Glucose, Body Fluid 248 mg/dL; LDH, Body Fluid Source Pleural Fluid
[2020-02-20 06:25] LABS: Glucose,Whole Blood 193 mg/dL (75-99)
[2020-02-20] MEDS: metFORMIN 850 MG TAB PO SCH ×2 (06:41→17:15)
[2020-02-20] MEDS: PANTOPRAZOLE 40 MG TABLET PO SCH (06:41)
[2020-02-20] MEDS: INSULIN ASPART (NovoLOG) 100 UNIT/ML VIAL SQ SCH ×4 (06:42→21:58)
[2020-02-20] MEDS: ACETAMINOPHEN TAB 325 MG TAB PO PRN (08:36)
[2020-02-20] MEDS: ANASTROZOLE 1 MG TAB PO SCH (08:36)
[2020-02-20] MEDS: AZITHROMYCIN 500 MG in SODIUM CHLORIDE 0.9% 250 ML IVPB SCH (08:38)
[2020-02-20] MEDS: ENOXAPARIN 40 MG/0.4 ML SYRINGE SQ SCH (08:47)
[2020-02-20 10:08] LABS: Basophils % (A) 0 %; Eosinophils % (A) 1 %; HCT 35.1 % (34.0-46.0); HGB 11.9 gm/dL (11.4-16.0); Lymphocytes # (A) 0.7 k/uL (1.0-4.8); Lymphocytes % (A) 12 %; MCH 31.4 pg (25.0-35.0); MCHC 33.8 g/dL (31.0-37.0); MCV 92.9 fL (80.0-100.0); Mean Platelet Volume 6.6; Monocytes # (A) 0.4 k/uL (0-1.0); Monocytes % (A) 7 %; Neutrophils # (A) 4.7 k/uL (1.3-7.7); Neutrophils % (A) 78 %; Platelet Count 211 k/uL (150-450); RBC 3.78 m/uL (3.80-5.40); RDW 12.1 % (11.5-15.5)
[2020-02-20] MEDS: SODIUM CHLORIDE 0.9% 1,000 ML IV SCH (10:21)
[2020-02-20 10:26] LABS: ALT 11 U/L (4-34); AST 16 U/L (14-36); African American GFR (CKD) >90 (>60 ml/min/1.73 sqM); Albumin 2.9 g/dL (3.5-5.0); Alkaline Phosphatase 82 U/L (38-126); Anion Gap 7 mmol/L; Blood Urea Nitrogen 9 mg/dL (7-17); Calcium 8.4 mg/dL (8.4-10.2); Carbon Dioxide 22 mmol/L (22-30); Chloride 105 mmol/L (98-107); Glucose 251 mg/dL (74-99); Non-African American GFR(CKD) >90 (>60 ml/min/1.73 sqM); Potassium 2.9 mmol/L (3.5-5.1); Sodium 134 mmol/L (137-145); Total Bilirubin 0.5 mg/dL (0.2-1.3); Total Protein 5.8 g/dL (6.3-8.2)
[2020-02-20] MEDS ORDERED: Potassium Replacement Protocol 1 EACH MISC MISCELLANE PRN (10:31)
--- NOTE | 2020-02-20 10:43 | P.PN ---
Subjective Progress Note Date: 02/20/20 Marely Johnson, is a 69-year-old female who presented to [facility] with cough fatigue and tachycardia she was evaluated at [facility] reportedly Covid 19 testing was negative patient was transferred to [facility] for further evaluation , patient had evidence of urinary tract infection she also had right lower lobe infiltrate with small effusion she was admitted to medical floor she was started on IV antibiotics pulmonary consultation was requested. Patient has a known history of breast cancer she underwent mastectomy in 1981, she had metastatic adenocarcinoma in August 2019 including osseous lytic lesions, patient underwent radiation treatment of the right chest. Patient was seen and examined on the medical floor she is alert and oriented 3 she is complaining of fatigue and occasional cough she has shortness of breath with activity otherwise she denies any complaints there is no fever or chills no headache or dizziness no chest pain no nausea or vomiting no abdominal pain no diarrhea no blood in the stools no burning with urination no frequency or urgency no hematuria. On 02/20/2020 patient was seen and examined on the medical floor she is alert and oriented 3 in no distress there is no fever or chills no headache or dizziness no chest pain no shortness of breath no cough no nausea or vomiting no abdominal pain no diarrhea no blood in the stools no burning with urination no frequency or urgency no hematuria Objective - Vital Signs Vital signs: Vital Signs Temp 97.3 F L 02/20/20 08:00 Pulse 103 H 02/20/20 08:00 Resp 16 02/20/20 08:00 BP 117/66 02/20/20 08:00 Pulse Ox 97 02/20/20 08:00 Intake & Output 02/19/20 02/20/20 02/20/20 18:59 06:59 18:59 Intake Total 540 120 Balance 540 120 Weight 58.4 kg Intake: Oral 540 120 Other: Voiding Method Toilet # Voids 1 1 0 - Exam In general patient is alert and oriented 3 in no distress HEENT head normocephalic and atraumatic Neck is supple no JVD no goiter no lymphadenopathy Chest exam reveals a few scattered rhonchi no wheezing Cardiac exam reveals regular heart sounds S1 and S2 no gallops no murmurs Abdomen is soft nontender no organomegaly with normal bowel sounds Extremity exam reveals no edema no cyanosis or clubbing Neurological examination reveals no gross focal deficit - Labs CBC & Chem 7: 02/20/20 09:51 02/20/20 09:51 Labs: Abnormal Lab Results - Last 24 Hours (Table) 02/19/20 02/19/20 02/19/20 Range/Units 11:28 16:56 20:34 RBC (3.80-5.40) m/uL Lymphocytes # (1.0-4.8) k/uL Sodium (137-145) mmol/L Potassium (3.5-5.1) mmol/L Creatinine (0.52-1.04) mg/dL Glucose (74-99) mg/dL POC Glucose (mg/dL) 227 H 238 H 286 H (75-99) mg/dL Total Protein (6.3-8.2) g/dL Albumin (3.5-5.0) g/dL 02/20/20 02/20/20 02/20/20 Range/Units 06:20 09:51 09:51 RBC 3.78 L (3.80-5.40) m/uL Lymphocytes # 0.7 L (1.0-4.8) k/uL Sodium 134 L (137-145) mmol/L Potassium 2.9 L (3.5-5.1) mmol/L Creatinine 0.38 L (0.52-1.04) mg/dL Glucose 251 H (74-99) mg/dL POC Glucose (mg/dL) 193 H (75-99) mg/dL Total Protein 5.8 L (6.3-8.2) g/dL Albumin 2.9 L (3.5-5.0) g/dL Microbiology - Last 24 Hours (Table) 02/19/20 15:00 Gram Stain - Preliminary Pleural Fluid Body Fluid Culture - Preliminary 02/19/20 15:00 Acid Fast Bacilli Culture - Preliminary Pleural Fluid 02/19/20 15:00 Fungal Culture - Preliminary Pleural Fluid 02/19/20 00:04 Blood Culture - Preliminary Blood No Growth after 24 hours 02/19/20 00:04 Urine Culture - Preliminary Urine,Voided Assessment and Plan Plan: 1. Urinary tract infection 2. Right basilar infiltrate with small pleural effusion. Status post thoracentesis with Dr. blankenship on 02/19/2020. Cytology pending 3. History of breast cancer 4. Underlying history of uip-jmviqum-jyhuhcxkd diabetes mellitus 5. Covid 19 testing negative at outside hospital 6. Remote history of breast cancer, with new lesions positive for metastatic adenocarcinoma of the breast in August 2019 with radiation therapy. 7. Rectovaginal fistula. Patient reports she has followed with Dr. Abdi outpatient for this issue and was further referred to [place] for specialized surgical intervention. Patient advised to follow-up with Dr. Abdi outpatient for further plan of care At this time patient is admitted to medical floor and started on IV antibiotics Pulmonary services following For DVT prophylaxis patient started on Lovenox For GI prophylaxis patient on Protonix Will follow closely
[2020-02-20 11:40] LABS: Glucose,Whole Blood 214 mg/dL (75-99)
[2020-02-20] MEDS: POTASSIUM CHLORIDE ER 20 MEQ TAB.ER PO SCH ×3 (11:56→15:04)
--- NOTE | 2020-02-20 14:26 | P.PN ---
Subjective Progress Note Date: 02/20/20 On 02/20/2020, the patient is feeling better. The patient is not having any fever or chills. She is currently on IV antibiotics regarding suspected UTI. The patient is on IV Rocephin. Zithromax can be discontinued as there is no clear indication for pneumonia. I performed a thoracentesis on this patient. The fluid is an exudate based on elevated fluid protein. Note that the pleural fluid protein was 4.2 g and the LDH was 104. Awaiting the fluid cytology and there is a high consented the patient may have malignant pleural effusion on the right. In any rate, the chest x-rays. Following the procedure showed no evidence of any pneumothorax. The right hemidiaphragm was visualized nicely. T he patient is doing well. She has no specific complaints. The urine and blood cultures are still pending for now and there are negative after 24 hours of evaluation. Objective - Vital Signs Vital signs: Vital Signs Temp 97.3 F L 02/20/20 08:00 Pulse 88 02/20/20 12:00 Resp 18 02/20/20 11:54 BP 120/68 02/20/20 11:54 Pulse Ox 96 02/20/20 11:54 Intake & Output 02/19/20 02/20/20 02/20/20 18:59 06:59 18:59 Intake Total 540 360 Balance 540 360 Weight 58.4 kg Intake: Oral 540 360 Other: Voiding Method Toilet # Voids 1 1 1 - Exam The patient appeared well nourished and normally developed. Vital signs as documented. Head exam is unremarkable. No scleral icterus or corneal arcus noted. Neck is without jugular venous distension, thyromegaly, or carotid bruits. Carotid upstrokes are brisk bilaterally. Lungs are clear to auscultation and percussion. Cardiac exam reveals the PMI to be normally sized and situated. Rhythm is regular. First and second heart sounds normal. No murmurs, rubs or gallops. Abdominal exam reveals normal bowel sounds, no masses, no organomegaly and no aortic enlargement. Extremities are nonedematous and both femoral and pedal pulses are normal.Examination of the skin revealed no evidence of significant rashes, suspicious appearing nevi or other concerning lesions.Neurologically, the patient is awake and alert and the patient does not have any focal neurological deficit. Cranial nerves are essentially intact. - Labs CBC & Chem 7: 02/20/20 09:51 02/20/20 09:51 Labs: Abnormal Lab Results - Last 24 Hours (Table) 02/19/20 02/19/20 02/20/20 Range/Units 16:56 20:34 06:20 RBC (3.80-5.40) m/uL Lymphocytes # (1.0-4.8) k/uL Sodium (137-145) mmol/L Potassium (3.5-5.1) mmol/L Creatinine (0.52-1.04) mg/dL Glucose (74-99) mg/dL POC Glucose (mg/dL) 238 H 286 H 193 H (75-99) mg/dL Total Protein (6.3-8.2) g/dL Albumin (3.5-5.0) g/dL 02/20/20 02/20/20 02/20/20 Range/Units 09:51 09:51 11:32 RBC 3.78 L (3.80-5.40) m/uL Lymphocytes # 0.7 L (1.0-4.8) k/uL Sodium 134 L (137-145) mmol/L Potassium 2.9 L (3.5-5.1) mmol/L Creatinine 0.38 L (0.52-1.04) mg/dL Glucose 251 H (74-99) mg/dL POC Glucose (mg/dL) 214 H (75-99) mg/dL Total Protein 5.8 L (6.3-8.2) g/dL Albumin 2.9 L (3.5-5.0) g/dL Microbiology - Last 24 Hours (Table) 02/19/20 00:04 Urine Culture - Final Urine,Voided 02/19/20 15:00 Gram Stain - Preliminary Pleural Fluid Body Fluid Culture - Preliminary 02/19/20 15:00 Acid Fast Bacilli Culture - Preliminary Pleural Fluid 02/19/20 15:00 Fungal Culture - Preliminary Pleural Fluid 02/19/20 00:04 Blood Culture - Preliminary Blood No Growth after 24 hours Assessment and Plan Plan: 1 right-sided pleural effusion, likely malignant, post thoracentesis and evacuation of 800 mL of pleural fluid from the right. Awaiting fluid cytology. The procedure was done without any complications. Consider malignant pleural effusion. The patient is known to have stage IV breast cancer. 2 metastatic breast cancer. The patient is a right mastectomy and many years following her mastectomy she was diagnosed having a osseous lesion involving the right rib cage and the patient was started on radiation therapy and is currently on Arimidex. 3 frequent UTIs with E. coli 4 rectovaginal fistula 5 diabetes mellitus 6 sinus tachycardia related to underlying UTI, improved while on antibiotics. Plan Awaiting pleural fluid cytology Discontinue the Zithromax Treatment of UTI with IV Rocephin The cultures of been negative thus far and the patient is clinically improving No magistral distress on today's evaluation We'll continue to follow
[2020-02-20 17:19] LABS: Glucose,Whole Blood 163 mg/dL (75-99)
[2020-02-20 20:39] LABS: Glucose,Whole Blood 188 mg/dL (75-99)
--- NOTE | 2020-02-20 21:12 | P.PN ---
Subjective Progress Note Date: 02/20/20 Principal diagnosis: Pleural Effusion, UTI, Breast Cancer Objective - Vital Signs Vital signs: Vital Signs Temp 97.3 F L 02/20/20 08:00 Pulse 88 02/20/20 12:00 Resp 18 02/20/20 11:54 BP 120/68 02/20/20 11:54 Pulse Ox 96 02/20/20 11:54 Intake & Output 02/19/20 02/20/20 02/20/20 18:59 06:59 18:59 Intake Total 540 120 Balance 540 120 Weight 58.4 kg Intake: Oral 540 120 Other: Voiding Method Toilet # Voids 1 1 0 - Exam - Constitutional General appearance: average body habitus, cooperative, no acute distress - EENT Eyes: anicteric sclerae, EOMI ENT: hearing grossly normal, normal oropharynx - Neck Neck: no lymphadenopathy - Respiratory Respiratory: right: rales (few scattered, soft cracles on deep inspiration), bilateral: CTA - Cardiovascular Rhythm: regular Heart sounds: normal: S1, S2 Abnormal Heart Sounds: no systolic murmur, no diastolic murmur, no rub, no S3 Gallop, no S4 Gallop, no click, no other leg Peripheral Edema: bilateral: None - Gastrointestinal General gastrointestinal: no absent bowel sounds, no decreased bowel sounds, no distended, no hepatomegaly, no hyperactive bowel sounds, normal bowel sounds, no organomegaly, no rigid, no scaphoid, no soft, no splenomegaly, no tenderness, no umbilical hernia, no ventral hernia - Integumentary Right chest wall surgical scar, scar tissue, bronzing of the skin (Rad changes), dryness and peeling on the rt posterior scapula, no open areas. - Neurologic Neurologic: CNII-XII intact - Musculoskeletal Rt axilla muscles and tendons are tight from surgery, no lymphedema Musculoskeletal: strength equal bilaterally - Psychiatric Psychiatric: A&O x's 3, appropriate affect, intact judgment & insight - Labs CBC & Chem 7: 02/20/20 09:51 02/20/20 09:51 Labs: Abnormal Lab Results - Last 24 Hours (Table) 02/19/20 02/19/20 02/20/20 Range/Units 16:56 20:34 06:20 RBC (3.80-5.40) m/uL Lymphocytes # (1.0-4.8) k/uL Sodium (137-145) mmol/L Potassium (3.5-5.1) mmol/L Creatinine (0.52-1.04) mg/dL Glucose (74-99) mg/dL POC Glucose (mg/dL) 238 H 286 H 193 H (75-99) mg/dL Total Protein (6.3-8.2) g/dL Albumin (3.5-5.0) g/dL 02/20/20 02/20/20 02/20/20 Range/Units 09:51 09:51 11:32 RBC 3.78 L (3.80-5.40) m/uL Lymphocytes # 0.7 L (1.0-4.8) k/uL Sodium 134 L (137-145) mmol/L Potassium 2.9 L (3.5-5.1) mmol/L Creatinine 0.38 L (0.52-1.04) mg/dL Glucose 251 H (74-99) mg/dL POC Glucose (mg/dL) 214 H (75-99) mg/dL Total Protein 5.8 L (6.3-8.2) g/dL Albumin 2.9 L (3.5-5.0) g/dL Microbiology - Last 24 Hours (Table) 02/19/20 00:04 Urine Culture - Final Urine,Voided 02/19/20 15:00 Gram Stain - Preliminary Pleural Fluid Body Fluid Culture - Preliminary 02/19/20 15:00 Acid Fast Bacilli Culture - Preliminary Pleural Fluid 02/19/20 15:00 Fungal Culture - Preliminary Pleural Fluid 02/19/20 00:04 Blood Culture - Preliminary Blood No Growth after 24 hours Assessment and Plan Plan: Chest x-ray: report reviewed Assessment and Plan Breast cancer Status Post Surgery and XRT for local recurrence. Cont arimidex. Pleural effusion Pt did have a thoracentesis >800cc fluid removed, pending cytology. Pneumonia - Pulmonary following, abx ordered. - Pt recently completed XRT to the chest wall, possibly component radiation induced pneumonitis UTI (urinary tract infection) - Empiric abx. Culture negative Rectovaginal fistula - Dr. Napoles to Evaluate Plan: - Await path - Continue hormone rick - Recommend repeat Echo Physicain Attest: I have completed full history and physical and agree with above dictation, dictated as a scribe
[2020-02-21] MEDS ORDERED: ZOLPIDEM 5 MG TAB PO PRN (00:16)
[2020-02-21] MEDS: SODIUM CHLORIDE 0.9% 1,000 ML IV SCH (00:40)
[2020-02-21 06:12] LABS: Glucose,Whole Blood 175 mg/dL (75-99)
[2020-02-21] MEDS: PANTOPRAZOLE 40 MG TABLET PO SCH (06:48)
[2020-02-21] MEDS: metFORMIN 850 MG TAB PO SCH (06:48)
[2020-02-21] MEDS: INSULIN ASPART (NovoLOG) 100 UNIT/ML VIAL SQ SCH ×2 (06:49→12:35)
[2020-02-21 08:20] LABS: Basophils % (A) 1 %; Eosinophils # (A) 0.1 k/uL (0-0.7); Eosinophils % (A) 1 %; HGB 12.4 gm/dL (11.4-16.0); Lymphocytes # (A) 0.7 k/uL (1.0-4.8); Lymphocytes % (A) 17 %; MCH 30.1 pg (25.0-35.0); MCHC 32.5 g/dL (31.0-37.0); MCV 92.6 fL (80.0-100.0); Mean Platelet Volume 6.7; Monocytes # (A) 0.2 k/uL (0-1.0); Monocytes % (A) 5 %; Neutrophils # (A) 3.2 k/uL (1.3-7.7); Neutrophils % (A) 74 %; Platelet Count 259 k/uL (150-450); RBC 4.11 m/uL (3.80-5.40); RDW 12.6 % (11.5-15.5); WBC 4.3 k/uL (3.8-10.6)
[2020-02-21 08:29] LABS: ALT 11 U/L (4-34); AST 19 U/L (14-36); African American GFR (CKD) >90 (>60 ml/min/1.73 sqM); Albumin 3.2 g/dL (3.5-5.0); Alkaline Phosphatase 82 U/L (38-126); Anion Gap 5 mmol/L; Blood Urea Nitrogen 12 mg/dL (7-17); Calcium 8.6 mg/dL (8.4-10.2); Carbon Dioxide 26 mmol/L (22-30); Chloride 106 mmol/L (98-107); Glucose 162 mg/dL (74-99); Non-African American GFR(CKD) >90 (>60 ml/min/1.73 sqM); Potassium 3.6 mmol/L (3.5-5.1); Sodium 137 mmol/L (137-145); Total Bilirubin 0.6 mg/dL (0.2-1.3); Total Protein 6.2 g/dL (6.3-8.2)
[2020-02-21] MEDS ORDERED: AZITHROMYCIN 500 MG TAB PO SCH (09:00)
[2020-02-21] MEDS: ENOXAPARIN 40 MG/0.4 ML SYRINGE SQ SCH (10:30)
[2020-02-21] MEDS: ANASTROZOLE 1 MG TAB PO SCH (10:30)
[2020-02-21 11:30] VITALS: TEMP 98.6
[2020-02-21 11:34] LABS: Glucose,Whole Blood 206 mg/dL (75-99)
--- NOTE | 2020-02-21 13:25 | P.DS ---
Providers Date of admission: 02/19/20 15:07 Expected date of discharge: 02/21/20 Attending physician: Jackson Breen Consults: 02/19/20 01:26 Consult Physician Routine Consulting Provider: Saul Fernandes Consult Reason/Comments: breast cancer Do you want consulting provider notified?: Yes, Notify in am 02/19/20 11:34 Consult Physician Routine Consulting Provider: James Tillman Consult Reason/Comments: pleural effusion Do you want consulting provider notified?: Yes Primary care physician: Bridgette [facility] Course: Diagnosis on discharge: 1. Urinary tract infection 2. Right basilar infiltrate with small pleural effusion. Status post thoracentesis with Dr. blankenship on 02/19/2020. Cytology pending 3. History of breast cancer 4. Underlying history of vxi-dhbafkj-yztavefuk diabetes mellitus 5. Covid 19 testing negative at outside hospital 6. Remote history of breast cancer, with new lesions positive for metastatic adenocarcinoma of the breast in August 2019 with radiation therapy. 7. Rectovaginal fistula. Patient reports she has followed with Dr. Abdi outpatient for this issue and was further referred to [facility] for specialized surgical intervention. Patient advised to follow-up with Dr. Abdi outpatient for further plan of care Hospital course: Marely Johnson, is a 69-year-old female who presented to [facility] with cough fatigue and tachycardia she was evaluated at [facility] reportedly Covid 19 testing was negative patient was transferred to [facility] for further evaluation , patient had evidence of urinary tract infection she also had right lower lobe infiltrate with small effusion she was admitted to medical floor she was started on IV antibiotics pulmonary consultation was requested. Patient has a known history of breast cancer she underwent mastectomy in 1981, she had metastatic adenocarcinoma in August 2019 including osseous lytic lesions, patient underwent radiation treatment of the right chest. Patient was seen and examined on the medical floor she is alert and oriented 3 she is complaining of fatigue and occasional cough she has shortness of breath with activity otherwise she denies any complaints there is no fever or chills no headache or dizziness no chest pain no nausea or vomiting no abdominal pain no diarrhea no blood in the stools no burning with urination no frequency or urgency no hematuria. On 02/20/2020 patient was seen and examined on the medical floor she is alert and oriented 3 in no distress there is no fever or chills no headache or dizziness no chest pain no shortness of breath no cough no nausea or vomiting no abdominal pain no diarrhea no blood in the stools no burning with urination no frequency or urgency no hematuria On 02/21/2020 patient was seen and examined on the medical floor she is alert and oriented 3 in no apparent distress there is no fever or chills no headache or dizziness no chest pain no shortness of breath no cough no nausea or vomiting no abdominal pain no diarrhea no blood in the stools no burning with urination no frequency or urgency and no hematuria patient was evaluated by pulmonary Dr. Tillman and was cleared for discharge she is feeling well and denies any symptoms at this time her shortness of breath has improved significantly since she had thoracentesis unit at this time patient will be discharged home she was given a course of Ceftin and a course of Zithromax for 5 more days she will follow-up with her primary care physician Dr. Taye reese within one week she will also follow-up with her oncologist Dr. Fernandes. On Sunday. Patient Condition at Discharge: Serious Plan - Discharge Summary Discharge Rx Participant: No New Discharge Prescriptions: New Cefuroxime Axetil [Ceftin] 500 mg PO BID 5 Days #10 tab Azithromycin [Zithromax] 500 mg PO DAILY 5 Days #5 tab Continue metFORMIN HCL 850 mg PO AC-BID 30 Days #60 tablet Anastrozole 1 mg PO DAILY Discharge Medication List metFORMIN HCL 850 mg PO AC-BID 30 Days #60 tablet 08/23/19 [Rx] Anastrozole 1 mg PO DAILY 10/16/19 [History] Azithromycin [Zithromax] 500 mg PO DAILY 5 Days #5 tab 02/21/20 [Rx] Cefuroxime Axetil [Ceftin] 500 mg PO BID 5 Days #10 tab 02/21/20 [Rx] Follow up Appointment(s)/Referral(s): Bridgette Chapman MD [Primary Care Provider] - 1-2 days
--- NOTE | 2020-02-21 13:40 | P.PN ---
Subjective Progress Note Date: 02/21/20 Principal diagnosis: Shortness of breath secondary to right-sided pleural effusion The patient is seen today 02/21/2020 in follow-up on the selective care unit. She is currently sitting up at the bedside. Awake and alert in no acute distress. She is feeling quite a bit better today compared to yesterday. She is status post right-sided thoracentesis performed by Dr. Tillman. Cultures and cytology are pending. She is currently maintaining good O2 saturations in the mid 90s on room air. She's afebrile. White count 4.3. Hemoglobin 12.4. Sodium 137. Potassium 3.6. Creatinine 0.38. She is currently on ceftriaxone and azithromycin. Maintained on Arimidex. Objective - Vital Signs Vital signs: Vital Signs Temp 98.6 F 02/21/20 08:00 Pulse 98 02/21/20 08:00 Resp 16 02/21/20 08:00 BP 117/68 02/21/20 08:00 Pulse Ox 97 02/21/20 08:00 Intake & Output 02/20/20 02/21/20 02/21/20 18:59 06:59 18:59 Intake Total 480 Balance 480 Weight 58.7 kg Intake: Oral 480 Other: # Voids 1 2 - Exam A pleasant 69-year-old female patient. Currently on room air. Appears well nourished and normally developed. Vital signs as documented. Head exam is unremarkable. No scleral icterus or corneal arcus noted. Neck is without jugular venous distension, thyromegaly, or carotid bruits. Carotid upstrokes are brisk bilaterally. Lungs are clear to auscultation and percussion. Cardiac exam reveals the PMI to be normally sized and situated. Rhythm is regular. First and second heart sounds normal. No murmurs, rubs or gallops. Abdominal exam reveals normal bowel sounds, no masses, no organomegaly and no aortic enlargement. Extremities are nonedematous and both femoral and pedal pulses are normal.Examination of the skin revealed no evidence of significant rashes, suspicious appearing nevi or other concerning lesions.Neurologically, the patient is awake and alert and the patient does not have any focal neurological deficit. Cranial nerves are essentially intact. - Labs CBC & Chem 7: 02/21/20 07:37 02/21/20 07:37 Labs: Abnormal Lab Results - Last 24 Hours (Table) 02/20/20 02/20/20 02/21/20 Range/Units 16:47 20:38 06:10 Lymphocytes # (1.0-4.8) k/uL Creatinine (0.52-1.04) mg/dL Glucose (74-99) mg/dL POC Glucose (mg/dL) 163 H 188 H 175 H (75-99) mg/dL Total Protein (6.3-8.2) g/dL Albumin (3.5-5.0) g/dL 02/21/20 02/21/20 02/21/20 Range/Units 07:37 07:37 11:21 Lymphocytes # 0.7 L (1.0-4.8) k/uL Creatinine 0.38 L (0.52-1.04) mg/dL Glucose 162 H (74-99) mg/dL POC Glucose (mg/dL) 206 H (75-99) mg/dL Total Protein 6.2 L (6.3-8.2) g/dL Albumin 3.2 L (3.5-5.0) g/dL Microbiology - Last 24 Hours (Table) 02/19/20 00:04 Blood Culture - Preliminary Blood No Growth after 48 hours 02/19/20 15:00 Acid Fast Bacilli Smear - Final Pleural Fluid Acid Fast Bacilli Culture - Preliminary 02/19/20 15:00 Gram Stain - Preliminary Pleural Fluid Body Fluid Culture - Preliminary 02/19/20 00:04 Urine Culture - Final Urine,Voided Assessment and Plan Assessment: 1 right-sided pleural effusion, likely malignant, post thoracentesis and evacuation of 800 mL of pleural fluid from the right. Awaiting fluid cytology. The procedure was done without any complications. Consider malignant pleural effusion. The patient is known to have stage IV breast cancer. 2 metastatic breast cancer. The patient is a right mastectomy and many years following her mastectomy she was diagnosed having a osseous lesion involving the right rib cage and the patient was started on radiation therapy and is currently on Arimidex. 3 frequent UTIs with E. coli 4 rectovaginal fistula 5 diabetes mellitus 6 sinus tachycardia related to underlying UTI, improved while on antibiotics. Plan The patient was seen and evaluated by Dr. Tillman She is cleared for discharge from the pulmonary standpoint Follow-up in 1-2 weeks' time and we'll repeat a chest x-ray then I, the cosigning physician, performed a history & physical examination of the patient. Lungs sounds are clear. Maintaining good O2 saturations in the 90s on room air. I discussed the assessment and plan of care with my nurse practitioner, Elyssa Wilks. I attest to the above note as dictated by her.
[2020-02-21 14:40] VITALS: PULSE 104
[2020-02-21 14:45] VITALS: BP 132/81; RESP 18
--- NOTE | 2020-02-21 17:46 | PN ---
PROGRESS NOTE DATE OF SERVICE: February 21, 2020. CHIEF COMPLAINT: Short of breath. Marely is seen today as a followup. She feels much better. Her breathing is better. No fever or chills. She is eating well. No nausea or vomiting. No melena, hematochezia, or hemoptysis or epistaxis. MEDICATIONS: His current medications are reviewed in her electronic medical record. PHYSICAL EXAMINATION: She is alert, oriented x3. She does not appear to be in distress. Her vital signs are temperature 98, pulse 98, respirations 18, blood pressure 132/81. HEENT: Normocephalic, atraumatic. No oral icterus. NECK: Supple. CHEST equal expansion bilaterally. LUNGS are clear to auscultation. HEART is regular rhythm. ABDOMEN: Soft. No obvious organomegaly. EXTREMITIES reveal no edema. LABORATORY DATA: WBC of 4.0, hemoglobin 12.4, hematocrit 38.0, platelets are 257. IMPRESSION: 1. Breast carcinoma with recent local recurrence in the right chest wall. She completed radiation therapy to it and she is currently on anastrozole, which is Arimidex 1 mg p.o. daily. 2. Right pleural effusion status post thoracentesis. Results are pending. Although this could have been malignant in nature. However, with review of recent radiation, this could be related to radiation therapy. RECOMMENDATION: 1. The patient is clinically stable. 2. She may be discharged home today. 3. Continue anastrozole 1 mg daily. 4. Awaiting cytology of the recent thoracentesis. 5. She will follow up with me in the outpatient setting. Thank you very much. MMODL / IJN: [id number] /
== END 2020-02-21 16:00 | disposition home or self-care (01) ==
LOC: EC 22:54 → 1SOBS 23:20 → OBSVTOIN 02-19 15:07 → INTOOBSV 02-19 15:07 → 3SCARD 02-19 16:04 → UNDODISIN 02-21 16:00
PROVIDERS: ADMIT Internal Medicine; ATTEND Internal Medicine
DX: N39.0 Urinary tract infection, site not specified (principal); J90 Pleural effusion, not elsewhere classified; J18.9 Pneumonia, unspecified organism; C50.911 Malignant neoplasm of unspecified site of right female breast; E11.9 Type 2 diabetes mellitus without complications; C79.51 Secondary malignant neoplasm of bone; N82.3 Fistula of vagina to large intestine; Z17.0 Estrogen receptor positive status [ER+]; Z20.828 Contact with and (suspected) exposure to other viral communicable diseases; Z88.2 Allergy status to sulfonamides; Z98.890 Other specified postprocedural states; Z90.11 Acquired absence of right breast and nipple; Z87.440 Personal history of urinary (tract) infections; Z79.811 Long term (current) use of aromatase inhibitors; Z79.84 Long term (current) use of oral hypoglycemic drugs; Z92.21 Personal history of antineoplastic chemotherapy; Z92.3 Personal history of irradiation; Z82.49 Family history of ischemic heart disease and other diseases of the circulatory system; Z82.3 Family history of stroke; Z83.3 Family history of diabetes mellitus; Z83.438 Family history of other disorder of lipoprotein metabolism and other lipidemia
CPT/HCPCS: 96366 ×3; 96372 ×3; 93005; 96365; 96367; 99285; 36415; 87798 ×3; 87496; 87498; 87529; 88108; 88305; 80053 ×3; 89050; 83605; 83735; 85025 ×3; 81001; 88342; 87040; 87252; 87502; 87634; 88341; 87070; 87086; 87205; 87116; 87102; 87206; 82945; 83615; 84157; 71045; 71046; G0378 ×5; J0456 ×2; J1650 ×3; J0696 ×3; S0170 ×3

== ENCOUNTER 2020-03-06 18:59 | Observation (INO) | payer MEDICARE ==
[2020-03-06] MEDS ORDERED: SODIUM CHLORIDE 0.9% 1,000 ML IV ONE (19:39)
[2020-03-06] MEDS ORDERED: ONDANSETRON 4 MG/2 ML VIAL IVP STA (19:39)
[2020-03-06] MEDS ORDERED: PHENAZOPYRIDINE 200 MG TAB PO STA (19:39)
--- NOTE | 2020-03-06 20:03 | ED ---
General Adult HPI - General Chief complaint: Urogenital Stated complaint: UTI Time Seen by Provider: 03/06/20 19:08 Source: patient Mode of arrival: ambulatory Limitations: no limitations - History of Present Illness Initial comments: 69-year-old female patient presents to the emergency department today for evaluation of dysuria and urinary frequency. Patient states she has a lot of discomfort in the genital region. Patient states that she is currently being treated for urinary tract infection With cefixime. States that she was admitted to the hospital for similar symptoms a little over 2 weeks ago. States she was discharged 2 weeks ago was unable to immediately get her prescriptions filled due to financial issues. Patient states she started taking the medications about 4 days ago and has nearly completed dosing with no improvement of symp toms. Patient states she has been having some nausea. Denies any flank pain. Denies fever or chills. She does have a history of breast cancer with radiation. 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 States that the antibiotic seemed to be causing some diarrhea. Patient denies any recent rash, cough, shortness of breath, chest pain, back pain, numbness, tingling, dizziness, weakness, headache, visual changes, or any other complaints. - Related Data Home Medications Medication Instructions Recorded Confirmed Anastrozole 1 mg PO DAILY 10/16/19 03/06/20 Previous Rx's Medication Instructions Recorded metFORMIN HCL 850 mg PO AC-BID 30 Days #60 tablet 08/23/19 Azithromycin [Zithromax] 500 mg PO DAILY 5 Days #5 tab 02/21/20 Cefuroxime Axetil [Ceftin] 500 mg PO BID 5 Days #10 tab 02/21/20 Allergies Allergy/AdvReac Type Severity Reaction Status Date / Time Sulfa (Sulfonamide Allergy Rash/Hives, Verified 03/06/20 22:53 Antibiotics) swelling, rapid heart rate Review of Systems ROS Statement: Those systems with pertinent positive or pertinent negative responses have been documented in the HPI. ROS Other: All systems not noted in ROS Statement are negative. Past Medical History Past Medical History: Cancer, Diabetes Mellitus Additional Past Medical History / Comment(s): Chronic UTI, Right Breast CA, fistula stool coming into vaginal area, seeing Dr Napoles, admitted with DKA 08/18/2019--new onset diabetes History of Any Multi-Drug Resistant Organisms: None Reported Past Surgical History: Breast Surgery, Orthopedic Surgery Additional Past Surgical History / Comment(s): right breast mastectomy, left femur surgery Past Anesthesia/Blood Transfusion Reactions: No Reported Reaction Past Psychological History: No Psychological Hx Reported Smoking Status: Never smoker Past Alcohol Use History: None Reported Past Drug Use History: None Reported - Past Family History Father Family Medical History: Congestive Heart Failure (CHF), CVA/TIA, Diabetes Mellitus, Myocardial Infarction ([place] Mother Family Medical History: Congestive Heart Failure (CHF), Diabetes Mellitus, Hyperlipidemia, Hypertension, Myocardial Infarction ([place]) General Exam Limitations: no limitations General appearance: alert, in no apparent distress, other (This is a well- developed, well-nourished elderly female patient in no acute distress. Vital signs upon presentation are temperature 98.7F, pulse 116, respirations 20, blood pressure 141/88, pulse ox 98% on room air.) Eye exam: Present: normal appearance, PERRL, EOMI. Absent: scleral icterus, conjunctival injection, periorbital swelling ENT exam: Present: normal exam, normal oropharynx, mucous membranes moist Respiratory exam: Present: normal lung sounds bilaterally. Absent: respiratory distress, wheezes, rales, rhonchi, stridor Cardiovascular Exam: Present: regular rate, normal rhythm, normal heart sounds. Absent: systolic murmur, diastolic murmur, rubs, gallop, clicks GI/Abdominal exam: Present: soft, normal bowel sounds. Absent: distended, te nderness, guarding, rebound, rigid Back exam: Absent: CVA tenderness (R), CVA tenderness (L) Neurological exam: Present: alert, oriented X3, CN II-XII intact Psychiatric exam: Present: normal affect, normal mood Skin exam: Present: warm, dry, intact, normal color. Absent: rash Course Vital Signs 03/06/20 03/06/20 19:01 23:00 Temperature 98.7 F 98.4 F Pulse Rate 116 H 94 Respiratory 20 16 Rate Blood Pressure 141/88 124/75 O2 Sat by Pulse 98 95 Oximetry Medical Decision Making - Medical Decision Making 69-year-old female patient presents to the emergency department today for evaluation of dysuria, urinary urgency, urinary frequency. Patient is currently taking antibiotics for urinary tract infection. Has a known rectovaginal fistula. Physical examination did reveal mild suprapubic tenderness. No CVA tenderness. She is afebrile. Labs reviewed and did reveal positive urinary tract infection. As she has been on 4 days of antibiotics outpatient we'll limited to the hospital for IV antibiotics area and patient is agreeable to this plan. - Lab Data Result diagrams: 03/06/20 19:55 03/06/20 19:55 Lab Results 03/06/20 03/06/20 03/06/20 Range/Units 19:55 19:55 19:55 WBC 3.8 (3.8-10.6) k/uL RBC 4.63 (3.80-5.40) m/uL Hgb 14.3 (11.4-16.0) gm/dL Hct 41.3 (34.0-46.0) % MCV 89.2 (80.0-100.0) fL MCH 30.8 (25.0-35.0) pg MCHC 34.6 (31.0-37.0) g/dL RDW 12.8 (11.5-15.5) % Plt Count 249 (150-450) k/uL MPV 6.8 Neutrophils % 72 % Lymphocytes % 19 % Monocytes % 5 % Eosinophils % 1 % Basophils % 1 % Neutrophils # 2.7 (1.3-7.7) k/uL Lymphocytes # 0.7 L (1.0-4.8) k/uL Monocytes # 0.2 (0-1.0) k/uL Eosinophils # 0.0 (0-0.7) k/uL Basophils # 0.0 (0-0.2) k/uL Sodium 141 (137-145) mmol/L Potassium 3.8 (3.5-5.1) mmol/L Chloride 110 H (98-107) mmol/L Carbon Dioxide 19 L (22-30) mmol/L Anion Gap 12 mmol/L BUN 17 (7-17) mg/dL Creatinine 0.52 (0.52-1.04) mg/dL Est GFR (CKD-EPI)AfAm >90 (>60 ml/min/1.73 sqM) Est GFR (CKD-EPI)NonAf >90 (>60 ml/min/1.73 sqM) Glucose 188 H (74-99) mg/dL Plasma Lactic Acid Yamil (0.7-2.0) mmol/L Calcium 9.1 (8.4-10.2) mg/dL Total Bilirubin 0.3 (0.2-1.3) mg/dL AST 66 H (14-36) U/L ALT 36 H (4-34) U/L Alkaline Phosphatase 110 (38-126) U/L Total Protein 7.3 (6.3-8.2) g/dL Albumin 3.9 (3.5-5.0) g/dL Urine Color Yellow Urine Appearance Turbid H (Clear) Urine pH 5.5 (5.0-8.0) Ur Specific [place] 1.021 (1.001-1.035) Urine Protein 2+ H (Negative) Urine Glucose (UA) Trace H (Negative) Urine Ketones 1+ H (Negative) Urine Blood Large H (Negative) Urine Nitrite Negative (Negative) Urine Bilirubin Negative (Negative) Urine Urobilinogen <2.0 (<2.0) mg/dL Ur Leukocyte Esterase Large H (Negative) Urine RBC >182 H (0-5) /hpf Urine WBC >182 H (0-5) /hpf Urine WBC Clumps Few H (None) /hpf Ur Squamous Epith Cells 1 (0-4) /hpf Calcium Oxalate Crystal Moderate H (None) /hpf Urine Bacteria Rare H (None) /hpf Urine Mucus Rare H (None) /hpf Urine Yeast (Budding) Moderate H (None) /hpf 03/06/20 Range/Units 19:55 WBC (3.8-10.6) k/uL RBC (3.80-5.40) m/uL Hgb (11.4-16.0) gm/dL Hct (34.0-46.0) % MCV (80.0-100.0) fL MCH (25.0-35.0) pg MCHC (31.0-37.0) g/dL RDW (11.5-15.5) % Plt Count (150-450) k/uL MPV Neutrophils % % Lymphocytes % % Monocytes % % Eosinophils % % Basophils % % Neutrophils # (1.3-7.7) k/uL Lymphocytes # (1.0-4.8) k/uL Monocytes # (0-1.0) k/uL Eosinophils # (0-0.7) k/uL Basophils # (0-0.2) k/uL Sodium (137-145) mmol/L Potassium (3.5-5.1) mmol/L Chloride (98-107) mmol/L Carbon Dioxide (22-30) mmol/L Anion Gap mmol/L BUN (7-17) mg/dL Creatinine (0.52-1.04) mg/dL Est GFR (CKD-EPI)AfAm (>60 ml/min/1.73 sqM) Est GFR (CKD-EPI)NonAf (>60 ml/min/1.73 sqM) Glucose (74-99) mg/dL Plasma Lactic Acid Yamil 1.1 (0.7-2.0) mmol/L Calcium (8.4-10.2) mg/dL Total Bilirubin (0.2-1.3) mg/dL AST (14-36) U/L ALT (4-34) U/L Alkaline Phosphatase (38-126) U/L Total Protein (6.3-8.2) g/dL Albumin (3.5-5.0) g/dL Urine Color Urine Appearance (Clear) Urine pH (5.0-8.0) Ur Specific [place] (1.001-1.035) Urine Protein (Negative) Urine Glucose (UA) (Negative) Urine Ketones (Negative) Urine Blood (Negative) Urine Nitrite (Negative) Urine Bilirubin (Negative) Urine Urobilinogen (<2.0) mg/dL Ur Leukocyte Esterase (Negative) Urine RBC (0-5) /hpf Urine WBC (0-5) /hpf Urine WBC Clumps (None) /hpf Ur Squamous Epith Cells (0-4) /hpf Calcium Oxalate Crystal (None) /hpf Urine Bacteria (None) /hpf Urine Mucus (None) /hpf Urine Yeast (Budding) (None) /hpf Disposition Clinical Impression: Failure of outpatient treatment, UTI (urinary tract infection) Disposition[facility] Condition: Serious Decision to Admit Reason: Admit from EC Decision Date: 03/06/20 Decision Time: 22:25
[2020-03-06 20:06] LABS: Basophils % (A) 1 %; Eosinophils % (A) 1 %; HCT 41.3 % (34.0-46.0); HGB 14.3 gm/dL (11.4-16.0); Lymphocytes # (A) 0.7 k/uL (1.0-4.8); Lymphocytes % (A) 19 %; MCH 30.8 pg (25.0-35.0); MCHC 34.6 g/dL (31.0-37.0); MCV 89.2 fL (80.0-100.0); Mean Platelet Volume 6.8; Monocytes # (A) 0.2 k/uL (0-1.0); Monocytes % (A) 5 %; Neutrophils # (A) 2.7 k/uL (1.3-7.7); Neutrophils % (A) 72 %; Platelet Count 249 k/uL (150-450); RBC 4.63 m/uL (3.80-5.40); RDW 12.8 % (11.5-15.5); WBC 3.8 k/uL (3.8-10.6)
[2020-03-06] MEDS ORDERED: KETOROLAC 15 MG/ML 1 ML VIAL IVP STA (20:09)
[2020-03-06 20:16] LABS: ALT 36 U/L (4-34); AST 66 U/L (14-36); African American GFR (CKD) >90 (>60 ml/min/1.73 sqM); Albumin 3.9 g/dL (3.5-5.0); Alkaline Phosphatase 110 U/L (38-126); Anion Gap 12 mmol/L; Blood Urea Nitrogen 17 mg/dL (7-17); Calcium 9.1 mg/dL (8.4-10.2); Carbon Dioxide 19 mmol/L (22-30); Chloride 110 mmol/L (98-107); Glucose 188 mg/dL (74-99); Non-African American GFR(CKD) >90 (>60 ml/min/1.73 sqM); Potassium 3.8 mmol/L (3.5-5.1); Sodium 141 mmol/L (137-145); Total Bilirubin 0.3 mg/dL (0.2-1.3); Total Protein 7.3 g/dL (6.3-8.2)
[2020-03-06 20:19] LABS: Appearance,Urine Turbid (Clear); Bacteria,Urine Rare /hpf; Bilirubin,Urine Negative (Negative); Blood,Urine Large (Negative); Budding Yeast,Urine Moderate /hpf; Calcium Oxalate Crystals,Urine Moderate /hpf; Color,Urine Yellow; Glucose,Urine (UA) Trace (Negative); Ketones,Urine 1+ (Negative); Leukocyte Esterase,Urine Large (Negative); Mucus,Urine Rare /hpf; Nitrite,Urine Negative (Negative); PH, Urine 5.5 (5.0-8.0); Protein,Urine 2+ (Negative); RBC,Urine >182 /hpf (0-5); Specific Gravity,Urine 1.021 (1.001-1.035); Squamous Epithelial Cell,Urine 1 /hpf (0-4); Urobilinogen,Urine <2.0 mg/dL (<2.0); WBC,Urine >182 /hpf (0-5)
[2020-03-06] MEDS ORDERED: PIPERACILLIN-TAZOBACTAM 3.375 GM in SODIUM CHLORIDE 0.9% 100 ML IVPB STA (22:23)
[2020-03-06] MEDS ORDERED: ACETAMINOPHEN TAB 325 MG TAB PO PRN (22:24)
[2020-03-06] MEDS ORDERED: NALOXONE 0.4 MG/ML 1 ML VIAL IV PRN (22:24)
[2020-03-06] MEDS ORDERED: ONDANSETRON 4 MG/2 ML VIAL IVP PRN (22:24)
[2020-03-07] MEDS: PIPERACILLIN-TAZOBACTAM 3.375 GM in SODIUM CHLORIDE 0.9% 100 ML IVPB SCH ×3 (06:01→23:42)
[2020-03-07 06:06] LABS: Glucose,Whole Blood 194 mg/dL (75-99)
[2020-03-07 07:14] LABS: Basophils % (A) 1 %; Eosinophils % (A) 1 %; HCT 38.8 % (34.0-46.0); Lymphocytes # (A) 0.8 k/uL (1.0-4.8); Lymphocytes % (A) 24 %; MCH 30.5 pg (25.0-35.0); MCHC 33.5 g/dL (31.0-37.0); MCV 91.2 fL (80.0-100.0); Mean Platelet Volume 7.1; Monocytes # (A) 0.2 k/uL (0-1.0); Monocytes % (A) 7 %; Neutrophils # (A) 2.1 k/uL (1.3-7.7); Neutrophils % (A) 66 %; Platelet Count 224 k/uL (150-450); RBC 4.25 m/uL (3.80-5.40); RDW 12.9 % (11.5-15.5); WBC 3.2 k/uL (3.8-10.6)
[2020-03-07 07:24] LABS: African American GFR (CKD) >90 (>60 ml/min/1.73 sqM); Anion Gap 9 mmol/L; Blood Urea Nitrogen 16 mg/dL (7-17); Calcium 8.3 mg/dL (8.4-10.2); Carbon Dioxide 17 mmol/L (22-30); Chloride 114 mmol/L (98-107); Glucose 191 mg/dL (74-99); Non-African American GFR(CKD) >90 (>60 ml/min/1.73 sqM); Potassium 3.8 mmol/L (3.5-5.1); Sodium 140 mmol/L (137-145)
[2020-03-07] MEDS: ANASTROZOLE 1 MG TAB PO SCH (08:28)
[2020-03-07] MEDS: metFORMIN 850 MG TAB PO SCH ×2 (08:28→17:00)
[2020-03-07] MEDS: MORPHINE SULFATE 4 MG/ML SYRINGE IV PRN ×2 (08:34→16:13)
--- NOTE | 2020-03-07 09:18 | P.HPIM ---
History of Present Illness H&P Date: 03/07/20 Marely Johnson, is a 69 year old female, who presented to [facility] emergency room with a chief complaint of worsening symptoms of urinary tract infection patient was having severe pain was urination with frequency and urgency she was recently admitted with urinary tract infection about 2 weeks ago she was discharged on oral antibiotics however she was not able to get her pills due to financial reasons, she started taking the oral antibiotic 4 days ago however her symptoms continued to worsen. Patient has a known history of rectovaginal fistula she was seen by urology and was referred to a urologist at [facility] for surgery, however she was unable to go to the diagnosis of metastatic breast cancer. Patient had breast cancer 20 years ago she has been in remission since then until recently when she developed pleural effusion, thoracentesis was done and she had evidence of recurrent breast cancer, she received radiation therapy, she is followed by Dr. Fernandes. Past Medical History Past Medical History: Cancer, Diabetes Mellitus Additional Past Medical History / Comment(s): Chronic UTI, Right Breast CA, fistula stool coming into vaginal area, seeing Dr Napoles, admitted with DKA 08/18/2019--new onset diabetes History of Any Multi-Drug Resistant Organisms: None Reported Past Surgical History: Breast Surgery, Orthopedic Surgery Additional Past Surgical History / Comment(s): right breast mastectomy, left femur surgery Past Anesthesia/Blood Transfusion Reactions: No Reported Reaction Past Psychological History: No Psychological Hx Reported Smoking Status: Never smoker Past Alcohol Use History: None Reported Past Drug Use History: None Reported - Past Family History Father Family Medical History: Congestive Heart Failure (CHF), CVA/TIA, Diabetes Mellitus, Myocardial Infarction ([place]) Mother Family Medical History: Congestive Heart Failure (CHF), Diabetes Mellitus, Hyperlipidemia, Hypertension, Myocardial Infarction ([place]) Medications and Allergies Home Medications Medication Instructions Recorded Confirmed Type metFORMIN HCL 850 mg PO AC-BID 30 Days #60 tablet 08/23/19 03/06/20 Rx Anastrozole 1 mg PO DAILY 10/16/19 03/06/20 History Azithromycin [Zithromax] 500 mg PO DAILY 5 Days #5 tab 02/21/20 03/06/20 Rx Cefuroxime Axetil [Ceftin] 500 mg PO BID 5 Days #10 tab 02/21/20 03/06/20 Rx Allergies Allergy/AdvReac Type Severity Reaction Status Date / Time Sulfa (Sulfonamide Allergy Rash/Hives, Verified 03/06/20 22:53 Antibiotics) swelling, rapid heart rate Physical Exam Vitals: Vital Signs Temp Pulse Pulse Resp BP BP Pulse Ox 03/07/20 07:54 97.6 F 100 14 132/80 97 03/07/20 02:47 97.8 F 99 15 138/75 96 03/06/20 23:30 97.7 F 97 16 119/77 96 03/06/20 23:00 98.4 F 94 16 124/75 95 03/06/20 19:01 98.7 F 116 H 20 141/88 98 Intake and Output 03/06/20 03/07/20 03/07/20 22:59 06:59 14:59 Intake Total 100 Balance 100 Intake: Intake, IV Titration 100 Amount Piperacillin-Tazobactam 3 100 .375 gm In Sodium Chloride 0.9% 100 ml @ 25 mls/hr IVPB Q8H [facility] Rx#: [id number] Other: Voiding Method Toilet # Voids 1 2 Weight 58.967 kg 58.967 kg In general patient is alert and oriented 3 in no distress HEENT head normocephalic and atraumatic Neck is supple no JVD no goiter no lymphadenopathy Chest exam reveals a scattered crackles bilaterally no wheezing Cardiac exam reveals regular heart sounds S1 and S2 no gallops no murmurs Abdomen is soft nontender no organomegaly with normal bowel sounds Extremity exam reveals no edema no cyanosis or clubbing Results CBC & Chem 7: 03/07/20 06:24 03/07/20 06:24 Labs: Abnormal Lab Results - Last 24 Hours (Table) 03/06/20 03/06/20 03/06/20 Range/Units 19:55 19:55 19:55 WBC (3.8-10.6) k/uL Lymphocytes # 0.7 L (1.0-4.8) k/uL Chloride 110 H (98-107) mmol/L Carbon Dioxide 19 L (22-30) mmol/L Creatinine (0.52-1.04) mg/dL Glucose 188 H (74-99) mg/dL POC Glucose (mg/dL) (75-99) mg/dL Calcium (8.4-10.2) mg/dL AST 66 H (14-36) U/L ALT 36 H (4-34) U/L Urine Appearance Turbid H (Clear) Urine Protein 2+ H (Negative) Urine Glucose (UA) Trace H (Negative) Urine Ketones 1+ H (Negative) Urine Blood Large H (Negative) Ur Leukocyte Esterase Large H (Negative) Urine RBC >182 H (0-5) /hpf Urine WBC >182 H (0-5) /hpf Urine WBC Clumps Few H (None) /hpf Calcium Oxalate Crystal Moderate H (None) /hpf Urine Bacteria Rare H (None) /hpf Urine Mucus Rare H (None) /hpf Urine Yeast (Budding) Moderate H (None) /hpf 03/07/20 03/07/20 03/07/20 Range/Units 06:05 06:24 06:24 WBC 3.2 L (3.8-10.6) k/uL Lymphocytes # 0.8 L (1.0-4.8) k/uL Chloride 114 H (98-107) mmol/L Carbon Dioxide 17 L (22-30) mmol/L Creatinine 0.51 L (0.52-1.04) mg/dL Glucose 191 H (74-99) mg/dL POC Glucose (mg/dL) 194 H (75-99) mg/dL Calcium 8.3 L (8.4-10.2) mg/dL AST (14-36) U/L ALT (4-34) U/L Urine Appearance (Clear) Urine Protein (Negative) Urine Glucose (UA) (Negative) Urine Ketones (Negative) Urine Blood (Negative) Ur Leukocyte Esterase (Negative) Urine RBC (0-5) /hpf Urine WBC (0-5) /hpf Urine WBC Clumps (None) /hpf Calcium Oxalate Crystal (None) /hpf Urine Bacteria (None) /hpf Urine Mucus (None) /hpf Urine Yeast (Budding) (None) /hpf Thrombosis Risk Factor Assmnt - Choose All That Apply Any of the Below Risk Factors Present?: No Other Risk Factors: Yes Each Risk Factor Represents 2 Points: Age 61-74 years Other congenital or acquired thrombophilia - If yes, enter type in comment: No Thrombosis Risk Factor Assessment Total Risk Factor Score: 2 Thrombosis Risk Factor Assessment Level: Low Risk Assessment and Plan Plan: 1. Urinary tract infection, failed outpatient therapy patient readmitted to the hospital with IV antibiotic Will consult infectious disease 2. History of rectovaginal fistula, awaiting follow-up at [facility] for possible surgical 3. history of breast cancer, diagnosed 20 years ago , patient was in remission, until recently she had pleural effusion that was positive for recurrent breast cancer cells patient received radiation therapy she is followed by Dr. Orellana 4. History of non insulin dependent diabetes mellitus, maintained on Metformin At this time continue current IV antibiotic awaiting urine culture Consult infectious disease Recheck lab check chest x-ray Will follow in a.m.
[2020-03-07 11:57] LABS: Glucose,Whole Blood 203 mg/dL (75-99)
--- NOTE | 2020-03-07 12:04 | P.GSCN ---
History of Present Illness Consult date: 03/07/20 Reason for Consult: Recurrent UTI Requesting physician: Jackson Breen History of present illness: The patient is a 69-year-old white female who has had a rectovaginal fistula resulting from childbirth over 30 years ago. As a result of this, she has had recurrent UTIs. This has become increasingly problematic for the past several years. A computed tomography scan in June 2019 demonstrated the fistula. The computed tomography scan also suggested the presence of a bladder tumor. The patient was evaluated by Dr. Napoles. She underwent cystoscopy, showing no evidence of bladder cancer. Presumably, there was also no fistula involvement. She has a history of right breast cancer over 20 years ago, and underwent t horacentesis and radiation therapy for a pleural effusion due to recurrence earlier this year. She is being followed by Dr. Fernandes regarding this. She was admitted with severe dysuria and difficulty voiding as a result of the infection, and states that her symptoms are much improved today. She denies pneumaturia. She is unable to determine whether or not she has fecaluria due to the fistula. Review of Systems - Constitutional Denies chills, Denies fever - Gastrointestinal Reports nausea - Genitourinary Genitourinary: Reports dysuria Past Medical History Past Medical History: Cancer, Diabetes Mellitus Additional Past Medical History / Comment(s): Chronic UTI, Right Breast CA, fistula stool coming into vaginal area, seeing Dr Napoles, admitted with DKA 08/18/2019--new onset diabetes History of Any Multi-Drug Resistant Organisms: None Reported Past Surgical History: Breast Surgery, Orthopedic Surgery Additional Past Surgical History / Comment(s): right breast mastectomy, left femur surgery Past Anesthesia/Blood Transfusion Reactions: No Reported Reaction Past Psychological History: No Psychological Hx Reported Smoking Status: Never smoker Past Alcohol Use History: None Reported Past Drug Use History: None Reported - Past Family History Father Family Medical History: Congestive Heart Failure (CHF), CVA/TIA, Diabetes Mellitus, Myocardial Infarction ([place]) Mother Family Medical History: Congestive Heart Failure (CHF), Diabetes Mellitus, Hyperlipidemia, Hypertension, Myocardial Infarction ([place]) Medications and Allergies Home Medications Medication Instructions Recorded Confirmed Type metFORMIN HCL 850 mg PO AC-BID 30 Days #60 tablet 08/23/19 03/06/20 Rx Anastrozole 1 mg PO DAILY 10/16/19 03/06/20 History Azithromycin [Zithromax] 500 mg PO DAILY 5 Days #5 tab 02/21/20 03/06/20 Rx Cefuroxime Axetil [Ceftin] 500 mg PO BID 5 Days #10 tab 02/21/20 03/06/20 Rx Allergies Allergy/AdvReac Type Severity Reaction Status Date / Time Sulfa (Sulfonamide Allergy Rash/Hives, Verified 03/06/20 22:53 Antibiotics) swelling, rapid heart rate Surgical - Exam Vital Signs Temp Pulse Resp BP Pulse Ox 98.7 F 116 H 20 141/88 98 03/06/20 19:01 03/06/20 19:01 03/06/20 19:01 03/06/20 19:01 03/06/20 19:01 - General well developed, well nourished, no distress - Respiratory normal respiratory effort - Abdomen Abdomen: soft, non tender, no guarding, no rigid, no rebound - Psychiatric oriented to time, oriented to person, oriented to place, speech is normal, memory intact Results - Labs 03/07/20 06:24 03/07/20 06:24 Abnormal Lab Results - Last 24 Hours (Table) 03/06/20 03/06/20 03/06/20 Range/Units 19:55 19:55 19:55 WBC (3.8-10.6) k/uL Lymphocytes # 0.7 L (1.0-4.8) k/uL Chloride 110 H (98-107) mmol/L Carbon Dioxide 19 L (22-30) mmol/L Creatinine (0.52-1.04) mg/dL Glucose 188 H (74-99) mg/dL POC Glucose (mg/dL) (75-99) mg/dL Calcium (8.4-10.2) mg/dL AST 66 H (14-36) U/L ALT 36 H (4-34) U/L Urine Appearance Turbid H (Clear) Urine Protein 2+ H (Negative) Urine Glucose (UA) Trace H (Negative) Urine Ketones 1+ H (Negative) Urine Blood Large H (Negative) Ur Leukocyte Esterase Large H (Negative) Urine RBC >182 H (0-5) /hpf Urine WBC >182 H (0-5) /hpf Urine WBC Clumps Few H (None) /hpf Calcium Oxalate Crystal Moderate H (None) /hpf Urine Bacteria Rare H (None) /hpf Urine Mucus Rare H (None) /hpf Urine Yeast (Budding) Moderate H (None) /hpf 03/07/20 03/07/20 03/07/20 Range/Units 06:05 06:24 06:24 WBC 3.2 L (3.8-10.6) k/uL Lymphocytes # 0.8 L (1.0-4.8) k/uL Chloride 114 H (98-107) mmol/L Carbon Dioxide 17 L (22-30) mmol/L Creatinine 0.51 L (0.52-1.04) mg/dL Glucose 191 H (74-99) mg/dL POC Glucose (mg/dL) 194 H (75-99) mg/dL Calcium 8.3 L (8.4-10.2) mg/dL AST (14-36) U/L ALT (4-34) U/L Urine Appearance (Clear) Urine Protein (Negative) Urine Glucose (UA) (Negative) Urine Ketones (Negative) Urine Blood (Negative) Ur Leukocyte Esterase (Negative) Urine RBC (0-5) /hpf Urine WBC (0-5) /hpf Urine WBC Clumps (None) /hpf Calcium Oxalate Crystal (None) /hpf Urine Bacteria (None) /hpf Urine Mucus (None) /hpf Urine Yeast (Budding) (None) /hpf Microbiology - Last 24 Hours (Table) 03/06/20 19:55 Urine Culture - Preliminary Urine,Voided Diabetes panel 03/06/20 03/07/20 Range/Units 19:55 06:24 Sodium 141 140 (137-145) mmol/L Potassium 3.8 3.8 (3.5-5.1) mmol/L Chloride 110 H 114 H (98-107) mmol/L Carbon Dioxide 19 L 17 L (22-30) mmol/L BUN 17 16 (7-17) mg/dL Creatinine 0.52 0.51 L (0.52-1.04) mg/dL Glucose 188 H 191 H (74-99) mg/dL Calcium 9.1 8.3 L (8.4-10.2) mg/dL AST 66 H (14-36) U/L ALT 36 H (4-34) U/L Alkaline Phosphatase 110 (38-126) U/L Total Protein 7.3 (6.3-8.2) g/dL Albumin 3.9 (3.5-5.0) g/dL Calcium panel 03/06/20 03/07/20 Range/Units 19:55 06:24 Calcium 9.1 8.3 L (8.4-10.2) mg/dL Albumin 3.9 (3.5-5.0) g/dL Pituitary panel 03/06/20 03/07/20 Range/Units 19:55 06:24 Sodium 141 140 (137-145) mmol/L Potassium 3.8 3.8 (3.5-5.1) mmol/L Chloride 110 H 114 H (98-107) mmol/L Carbon Dioxide 19 L 17 L (22-30) mmol/L BUN 17 16 (7-17) mg/dL Creatinine 0.52 0.51 L (0.52-1.04) mg/dL Glucose 188 H 191 H (74-99) mg/dL Calcium 9.1 8.3 L (8.4-10.2) mg/dL Adrenal panel 03/06/20 03/07/20 Range/Units 19:55 06:24 Sodium 141 140 (137-145) mmol/L Potassium 3.8 3.8 (3.5-5.1) mmol/L Chloride 110 H 114 H (98-107) mmol/L Carbon Dioxide 19 L 17 L (22-30) mmol/L BUN 17 16 (7-17) mg/dL Creatinine 0.52 0.51 L (0.52-1.04) mg/dL Glucose 188 H 191 H (74-99) mg/dL Calcium 9.1 8.3 L (8.4-10.2) mg/dL Total Bilirubin 0.3 (0.2-1.3) mg/dL AST 66 H (14-36) U/L ALT 36 H (4-34) U/L Alkaline Phosphatase 110 (38-126) U/L Total Protein 7.3 (6.3-8.2) g/dL Albumin 3.9 (3.5-5.0) g/dL - Imaging CT scan - pelvis: report reviewed, image reviewed Assessment and Plan (1) Rectovaginal fistula Current Visit: No Status: Chronic Priority: Low Code(s): N82.3 - FISTULA OF VAGINA TO LARGE INTESTINE SNOMED Code(s): 64627814 (2) Chronic cystitis without hematuria Current Visit: Yes Status: Acute Code(s): N30.20 - OTHER CHRONIC CYSTITIS WITHOUT HEMATURIA SNOMED Code(s): 05407307 Plan: The patient's symptoms are improved on IV antibiotics. A urine culture is pending. She may be discharged home on culture appropriate oral antibiotics. She was advised to follow up with Dr. Napoles as an outpatient. Arrangements will be made for her to be seen at [facility] in [place] to be evaluated for fistula repair. Of course, I would recommend this only if she has a favorable prognosis with regards to her breast cancer. Time with Patient: Greater than 30
[2020-03-07 16:36] LABS: Glucose,Whole Blood 155 mg/dL (75-99)
[2020-03-07 20:48] LABS: Glucose,Whole Blood 192 mg/dL (75-99)
[2020-03-07] MEDS ORDERED: FLUCONAZOLE 150 MG TAB PO STA (20:57)
--- NOTE | 2020-03-08 05:36 | CONS ---
CONSULTATION DATE OF SERVICE: 03/07/2020 REASON FOR CONSULTATION: Resistant urinary tract infection. HISTORY OF PRESENT ILLNESS: The patient is a 69-year-old female with a past medical history significant for recurrent urinary tract infection presented to the ER last night for evaluation of dysuria, frequency and discomfort in the genital area. Apparently the patient has been recently treated in the outpatient setting for UTI with cefuroxime. The patient was admitted to the hospital 2 weeks ago with similar symptoms. Patient mentioned she was unable to fill prescription immediately because of financial issues. However, she started medication about 4 days ago. The patient did not have any improvement in her symptoms for which the patient presented to the ER. The patient denies high-grade fever, rigors or chills. Patient denies having any chest pain or shortness of breath or cough. No abdominal pain or diarrhea. On arrival to the ER, the patient was afebrile. The patient did have a normal white count with mild lymphopenia. Kidney function was normal. Urine was positive with large leukocyte esterase more than 182 WBCs, few budding yeast. The patient was started on Zosyn. Infectious Disease was consulted for further management of antibiotic therapy. REVIEW OF SYSTEMS: Positive points have been mentioned in HPI. Rest of the systems are negative. PAST MEDICAL HISTORY: Significant for chronic urinary tract infection, right breast cancer, diabetes mellitus. PAST SURGICAL HISTORY: Right breast mastectomy, left femur surgery. SOCIAL HISTORY: No history of smoking, drinking or drug use. FAMILY HISTORY: Father history of congestive heart failure, CVA, TIA, diabetes mellitus. Mother history of diabetes and congestive heart failure. ALLERGIES: Allergic to SULFA. MEDICATIONS: Medications include the patient is currently on Zosyn, Zofran, Narcan, morphine sulfate, Glucophage, Arimidex and Tylenol. PHYSICAL EXAMINATION: Blood pressure 146/78 with a pulse of 98, temperature 98.3. She is 95% on room air. General description is an elderly female up in the bed in no distress. No tachypnea or accessory muscle of respiration use. HEENT: Examination shows no pallor or scleral icterus. Oral mucous membranes dry. NECK: Trachea central. No thyromegaly. LUNGS: Unlabored breathing, clear to auscultation anteriorly. No wheeze or crackle. HEART: S1, S2. Regular rate and rhythm. ABDOMEN: Soft, no tenderness. No guarding or rigidity. EXTREMITIES: No edema of feet. SKIN EXAMINATION: No rash or mass palpable. NEUROLOGICAL: The patient is awake, alert, oriented x3. Mood and affect normal. LABS: Hemoglobin is 13, white count 3.2, BUN of 16, creatinine 0.51. Electrolytes have been normal. Urine is positive. Cultures are negative. DIAGNOSTIC IMPRESSION: 1. Patient presented to hospital with urinary frequency and burning and vaginal pain in this patient who did have urinary tract infection and history of rectovaginal fistula apparently per Urology note, the patient did have cystoscopy done by Dr. Napoles. There was no evidence of any tumor or fistula. The recurrent symptoms are concerning and will need to cover for the enteric gram- negative pathogen. 2. Patient with SULFA allergy limiting a number of antibiotics safe to use. PLAN: 1. Patient to continue Zosyn 3.375 grams q.8 hours while waiting for the culture to finalize. 2. We will add Diflucan 150 mg p.o. x1. 3. We will follow on clinical condition and culture to further adjust medication if needed. Apparently, the patient is scheduled to see a urologist at for possible repair of that fistula that may help prevent recurrent infection. MMODL / IJN: [id number] /
[2020-03-08 06:29] LABS: ALT 88 U/L (4-34); AST 130 U/L (14-36); African American GFR (CKD) >90 (>60 ml/min/1.73 sqM); Albumin 3.7 g/dL (3.5-5.0); Alkaline Phosphatase 92 U/L (38-126); Anion Gap 7 mmol/L; Blood Urea Nitrogen 13 mg/dL (7-17); Calcium 8.7 mg/dL (8.4-10.2); Carbon Dioxide 23 mmol/L (22-30); Chloride 108 mmol/L (98-107); Glucose 171 mg/dL (74-99); Non-African American GFR(CKD) >90 (>60 ml/min/1.73 sqM); Sodium 138 mmol/L (137-145); Total Bilirubin 0.4 mg/dL (0.2-1.3); Total Protein 6.8 g/dL (6.3-8.2)
[2020-03-08] MEDS: PIPERACILLIN-TAZOBACTAM 3.375 GM in SODIUM CHLORIDE 0.9% 100 ML IVPB SCH ×2 (06:35→14:33)
[2020-03-08 06:41] LABS: Glucose,Whole Blood 162 mg/dL (75-99)
[2020-03-08] MEDS: metFORMIN 850 MG TAB PO SCH (07:51)
[2020-03-08] MEDS: ANASTROZOLE 1 MG TAB PO SCH (07:52)
[2020-03-08] MEDS: MORPHINE SULFATE 4 MG/ML SYRINGE IV PRN (07:55)
[2020-03-08 09:15] VITALS: RESP 16
[2020-03-08 11:40] LABS: Glucose,Whole Blood 142 mg/dL (75-99)
[2020-03-08 14:46] VITALS: BP 148/81; PULSE 112; TEMP 98.4
--- NOTE | 2020-03-08 18:37 | PN ---
PROGRESS NOTE DATE OF SERVICE: 03/08/2020 REASON FOR FOLLOWUP: Recurrent urinary tract infection. INTERVAL HISTORY: Patient was seen on rounds early this afternoon. The patient has been afebrile. She is feeling better, breathing comfortably. Denies having any chest pain or cough. No abdominal pain or diarrhea. PHYSICAL EXAMINATION: Blood pressure 148/81 with a pulse of 112. Temperature 98.4. She is 93% on room air. General description: The patient is an elderly female up in the in no distress. Respiratory system: Unlabored breathing, clear to auscultation anteriorly. Heart S1, S2. Regular rate and rhythm. Abdomen soft, no tenderness. LABS: BUN of 13, creatinine 0.49. Urine came back negative. 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 She is encouraged to follow up sooner. Antibiotic adjusted. Cipro and Diflucan for about a week. Close outpatient followup. Plan of care discussed with the admitting physician working on discharge. MMODL / IJN: [id number] /
== END 2020-03-08 16:56 | disposition home or self-care (01) ==
LOC: EC 18:59 → 1SOBS 22:44
PROVIDERS: ADMIT Internal Medicine; ATTEND Internal Medicine
DX: N30.20 Other chronic cystitis without hematuria (principal); T36.1X6A Underdosing of cephalosporins and other beta-lactam antibiotics, initial encounter; E11.9 Type 2 diabetes mellitus without complications; Z91.120 Patient's intentional underdosing of medication regimen due to financial hardship; R19.7 Diarrhea, unspecified; N82.3 Fistula of vagina to large intestine; D72.810 Lymphocytopenia; Z85.3 Personal history of malignant neoplasm of breast; Z59.9 Problem related to housing and economic circumstances, unspecified; Z92.3 Personal history of irradiation; Z87.440 Personal history of urinary (tract) infections; Z79.811 Long term (current) use of aromatase inhibitors; Z88.2 Allergy status to sulfonamides; Z79.84 Long term (current) use of oral hypoglycemic drugs; Z90.11 Acquired absence of right breast and nipple; Z82.49 Family history of ischemic heart disease and other diseases of the circulatory system; Z83.3 Family history of diabetes mellitus; Z82.3 Family history of stroke
CPT/HCPCS: 96366 ×2; 96375 ×2; 96376 ×2; 96361; 96365; 99284; 36415; 80053 ×2; 80048; 83605; 85025 ×2; 81001; 87040; 87086; G0378 ×3; J2543 ×3; J2270 ×2; J2405 ×2; S0170 ×2; J1885

== ENCOUNTER → 2020-04-14 | Outpatient (CLI) | payer MEDICARE ==
[2020-04-14 10:43] LABS: African American GFR (CKD) >90 (>60 ml/min/1.73 sqM); Blood Urea Nitrogen 13 mg/dL (7-17); Non-African American GFR(CKD) >90 (>60 ml/min/1.73 sqM)
--- NOTE | 2020-04-14 12:15 | CT ---
EXAMINATION TYPE: CT chest w con DATE OF EXAM: 04/14/2020 COMPARISON: PET/CT 08/08/2019, chest x-ray 02/19/2020 HISTORY: Breast CA CT DLP: 221 mGycm Automated exposure control for dose reduction was used. CONTRAST: CT scan of the chest is performed with IV Contrast, patient injected with 100 mL of Isovue 300. FINDINGS: LUNGS: There is been interval development of a moderate right pleural effusion. Patient shows right m astectomy change. Multiple surgical clips are present along the anterior chest wall. In the subpleura l location of the right upper lobe there is been interval development of abnormal band of soft tissue density extending along the anterolateral right chest and measuring approximately 10 cm in cephalad to caudal dimension, greatest thickness of approximately 13 mm and greatest AP dimension of approxima tely 7.3 cm, some local air bronchograms are present, pleural thickening. The right upper lobe on axi al image #11 there is a vague area of increased attenuation as there is more medially on axial image #12 and 13 measuring 11 mm on coronal image #43. Some scattered groundglass areas of increased attenu ation are present in the bilateral upper lobes, lower lobes. Associated compressive atelectasis prese nt due to the pleural effusion. MEDIASTINUM: There are no greater than 1 cm hilar or mediastinal lymph nodes. Minimal pericardial eff usion is seen. AORTA: No additional significant abnormality is seen. OTHER: Some soft tissue thickening is present along the anterior chest wall which is indeterminate. Sclerotic density is present within the superior endplate of T12 as well as posterior vertebral body to the left midline, some additional scattered small densities are present within multiple vertebral bodies to include T10, T11, T1, T3 not seen on previous exam. Sclerotic density is also present along the anterior right fourth rib more conspicuous than on prior PET/CT IMPRESSION: Interval development of right pleural effusion, abnormal soft tissue density could be du e to post radiation changes within the lung, bilateral scattered groundglass densities are present wi thin the lungs, consider pneumonia, edema, hypersensitivity pneumonitis, interstitial pneumonias. Bon y metastatic disease.
--- NOTE | 2020-04-14 12:17 | BD ---
EXAMINATION TYPE: Axial Bone Density DATE OF EXAM: 04/14/2020 COMPARISON: NONE CLINICAL HISTORY: Height: 5 FT 5 IN Weight: 130 FRAX RISK QUESTIONS: Alcohol (3 or more units per day): NO Family History (Parent hip fracture): NO Glucocorticoids (More than 3mos): NO (Ex: prednisone, prednisolone, methylprednisolone, dexamethasone, and hydrocortisone). History of Fracture in Adulthood: YES Secondary Osteoporosis: 1. Type 1 Diabetes: NO 2. Hyperthyroidism: NO 3. Menopause before 45: YES 4. Malnutrition: NO 5. Chronic liver disease: NO Rheumatoid Arthritis: NO Current Tobacco Use: NO RISK FACTORS HISTORY OF: Family History of Osteoporosis: NO Active: YES Diet low in dairy products/other sources of calcium: NO Postmenopausal woman: AGE 42 CHEMO INDUCED Take estrogen and/or progesterone medications: NONE Lost more than 2 inches in height since high school: NO MEDICATIONS: Additional Medications: CANCER JACOBO, METFORMIN, Additional History: BREAST CA 1992 CHEM , RECENT CHEST WALL SAME SIDE MASTECTOMY 32 RADIATION TX 2 020 EXAM MEASUREMENTS: Bone mineral densitometry was performed using the [employer] System. Bone mineral density as measured about the Lumbar spine is: ----- L1-L4(G/cm2): 0.967 T Score Values are as follows: ----- L2: -2.3 ----- L3: -1.7 ----- L4: -1.8 ----- L1-L4: -1.8 BASELINE Bone mineral density about the R hip (g/cm2): 0.834 Bone mineral density about the L hip (g/cm2): 0.774 T Score values are as follows: -----R Neck: -1.5 -----L Neck: -1.9 -----R Total: -1.6 -----L Total: -2.0 BASELINE IMPRESSION: Osteopenia. NOTE: T-SCORE=SD OF THE YOUNG ADULT MEAN.
== END | disposition home or self-care (01) ==
LOC: RADBDWWP 09:23
PROVIDERS: ATTEND Internal Medicine Hematology & Oncology
DX: C50.411 Malignant neoplasm of upper-outer quadrant of right female breast (principal); C79.51 Secondary malignant neoplasm of bone; M85.80 Other specified disorders of bone density and structure, unspecified site; J90 Pleural effusion, not elsewhere classified; J98.4 Other disorders of lung; R91.8 Other nonspecific abnormal finding of lung field; Z88.2 Allergy status to sulfonamides; Z79.890 Hormone replacement therapy
CPT/HCPCS: 82565; 84520; 77080; 71260; 36415; Q9967

== ENCOUNTER → 2021-12-27 | Outpatient (CLI) | payer MEDICARE ==
[2021-12-27 10:52] LABS: African American GFR (CKD) >90 (>60 ml/min/1.73 sqM); Blood Urea Nitrogen 12 mg/dL (7-17); Non-African American GFR(CKD) >90 (>60 ml/min/1.73 sqM)
--- NOTE | 2021-12-30 08:48 | NM ---
EXAMINATION TYPE: NM bone scan whole body DATE OF EXAM: 12/28/2021 COMPARISON: CT scan 9622 HISTORY: Breast cancer Delayed whole-body scanning was performed following the injection of 22.2 mCi Tc 99m MDP. Images acq uired through hours post injection. FINDINGS: There is an area of abnormal uptake in the approximate level of T12 appears to correspond to the CT a bnormality suspicious for metastases additional faint abnormal uptake is seen involving the L5 and L3 vertebral segments corresponding to sclerotic lesions by CAT scan also suspicious for metastases. Ad ditional punctate areas of abnormal uptake involving other vertebral segments pelvic bones are not as well-seen by Abnormal uptake involving the sternoclavicular joint most likely post arthritic Abnormal uptake involving the mandible compatible with periodontal disease IMPRESSION: 1. Abnormal uptake involving the vertebral column is concordant with the CT finding and is suspicious for metastasis. 2. Additional tiny foci of sclerotic change involving the pelvic bones are not clearly demonstrated b y bone scan which may be due to their small size. Findings also could be on the basis of early metast ases.
--- NOTE | 2022-01-06 09:13 | CT ---
EXAMINATION TYPE: CT ChestAbdPelvis w con CT DLP: 736 mGycm, Automated exposure control for dose reduction was used. DATE OF EXAM: 12/30/2021 12:45 PM COMPARISON: Same day bone scan. PET/CT 08/08/2019, CT chest 04/14/2020 CLINICAL INDICATION: 70-year-old female with cancer. Technique: Multiple axial images of the chest, abdomen, and pelvis were obtained. Two-dimensional coronal and sagittal reconstructions were obtained. Contrast used: 100 cc of Isovue-300. Oral contrast used: with Oral Contrast Findings: CHEST: LUNGS/ PLEURA: Left lower lobe superior segment 3 mm pulmonary nodule image 23 series 5. Additional nodules seen on prior in the right upper lobe are similar measuring up to 4 mm series 5 image 22. Posttreatment scarring changes to the right upper lobe. No evidence of focal consolidation, pneumothorax. Trace right pleural effusion. AIRWAY: Patent and unremarkable. HEART: Size within normal limits. Mild coronary artery atherosclerosis. MEDIASTINUM: No gross evidence of adenopathy. VASCULATURE: No aortic aneurysm. SOFT TISSUES/LYMPH NODES: 11 mm left hypodense thyroid nodule. The right breast is surgically absent. There is surgical clips in the right chest wall. LOWER NECK: No significant findings. LIVER: Diffusely hypoattenuating parenchyma. GALLBLADDER AND BILE DUCTS: Unremarkable. PANCREAS: Unremarkable. SPLEEN: Unremarkable. ADRENAL GLANDS: Unremarkable. KIDNEYS AND URETERS No evidence of hydronephrosis there is nonobstructing left 4 mm renal calculus. BLADDER: Unremarkable REPRODUCTIVE: Unremarkable. STOMACH AND BOWEL: No evidence of bowel obstruction. PERITONEUM: No evidence of pneumoperitoneum or free fluid. VASCULATURE: No evidence of aortic aneurysm. MUSCULOSKELETAL: Multiple osteoblastic lesions are seen throughout the structures most pronounced in the spine at T12 and L5 where is there are smaller also present. These were hot on bone scan same day. LYMPH NODES: No gross evidence for lymphadenopathy. SOFT TISSUE/ABDOMINAL WALL: Unremarkable IMPRESSION: 1. Progression of disease with scattered new osteoblastic metastatic disease throughout the predominantly vertebrae. Compared to PET CT on 08/08/2019 2. 3 mm pulmonary left lower lobe pulmonary nodule and right upper lobe nodules are stable. 3. Hepatic steatosis. MTDD
== END | disposition home or self-care (01) ==
LOC: RADNMMAIN 09:46
PROVIDERS: ATTEND Internal Medicine Hematology & Oncology
DX: C50.911 Malignant neoplasm of unspecified site of right female breast (principal); K76.0 Fatty (change of) liver, not elsewhere classified; R91.8 Other nonspecific abnormal finding of lung field
CPT/HCPCS: 82565; 84520; 71260; 74177; 36415; 78306; A9503; Q9967

== ENCOUNTER → 2022-03-15 | Outpatient (CLI) | payer MEDICARE ==
--- NOTE | 2022-03-15 10:23 | MM ---
Reason for Exam: Follow-up at short interval from prior study. Patient History: Menarche at age 11. First Full-Term at age 30. Late child-bearing (after 28). Postmenopausal. Breast cancer, right, age 40. Breast cancer, right, age 69. Previous chest radiation therapy at age 69. Previous chemotherapy at age 40. Tamoxifen, starting at age 40 for 5 years. Tissue Density: Left: The breast tissue is heterogeneously dense. This may lower the sensitivity of mammography. Findings: Analyzed By CAD. Benign-appearing calcifications noted. No evidence for mass or distortion. No skin thickening. Overall Assessment: Benign, BI-RAD 2 Management: Screening Mammogram of the left breast in 1 year. A clinical breast exam by your physician is recommended on an annual basis and results should be correlated with mammographic findings. This exam should not preclude additional follow-up of suspicious palpable abnormalities. Results were given to the patient verbally at the time of exam. Electronically signed and approved by: Sorin Johnston M.D. Radiologis
== END | disposition home or self-care (01) ==
LOC: RADMAMWWP 09:52
PROVIDERS: ATTEND Family Medicine
DX: Z85.3 Personal history of malignant neoplasm of breast (principal); Z78.0 Asymptomatic menopausal state; Z92.3 Personal history of irradiation
CPT/HCPCS: 77065; G0279; 77061

== ENCOUNTER → 2022-07-31 | Outpatient (CLI) | payer MEDICARE ==
[2022-07-31 11:34] LABS: African American GFR (CKD) >90 (>60 ml/min/1.73 sqM); Blood Urea Nitrogen 13 mg/dL (7-17); Non-African American GFR(CKD) >90 (>60 ml/min/1.73 sqM)
--- NOTE | 2022-07-31 15:07 | NM ---
EXAMINATION TYPE: NM bone scan whole body DATE OF EXAM: 07/31/2022 COMPARISON: 12/27/2021 HISTORY: There appear to be a couple of the sub-3 mm calculi mid right kidney however overlying bowel content limits evaluation. Delayed whole-body scanning was performed following the injection of 23.0 mCi Tc 99m MDP. Images acq uired 3 hours post injection. FINDINGS: Again noted is approximately 12 increased uptake essentially unchanged when compared to prior study. Faint uptake is noted to involve the L5 and L3 vertebral segments which may reflect additional metast atic disease. Vague uptake 2 right-sided ribs 5 and 6 appear unchanged from prior study. Degenerative uptake unchanged from prior study. IMPRESSION: Essentially stable examination. Metastatic disease is not excluded.
--- NOTE | 2022-07-31 22:25 | CT ---
EXAMINATION TYPE: CT ChestAbdPelvis w con DATE OF EXAM: 07/31/2022 INDICATION: h/o breast CA, f/u COMPARISON: 12/27/2021 CT DLP: 1171 mGycm CONTRAST: Performed with Oral Contrast and with IV Contrast, patient injected with 70 mL of Isovue 300. TECHNIQUE: Axial images at 5 mm thick sections. Reconstructed images in the coronal plane. Delayed images through the kidneys. FINDINGS: CT CHEST: There is a hypodensity within the left lobe thyroid and this can be further evaluated with ultrasound. No new nodules are evident. The left lung nodule is stable. Right lung nodule not identified on the c urrent exam. No enlarged mediastinal or hilar adenopathy is evident. The ascending aorta diameter at the level of the main pulmonary artery is 3.3 cm. The main pulmonary artery diameter at the bifurcation is 2.5 cm. Multiple surgical clips are along the right chest wall . CT ABDOMEN: Liver: There is moderate fatty infiltration of liver. No discrete masses are evident. Spleen: Normal Pancreas: Normal Adrenal glands: The adrenal glands are normal. Gallbladder: Normal Kidneys: No masses are evident. Punctate nonobstructing renal stones may be on the left. No hydroneph rosis is present. No large cysts are evident. Tiny cortical renal cysts are more evident on delaye d images.. Aorta: Vascular calcifications within the aorta. Inferior vena cava: There is flattening of the inferior vena cava which could be related to the patie nt's volume status. CT PELVIS: Loops of bowel within the abdomen and pelvis are normal. There are loops of bowel which are incom pletely distended or lack oral contrast limiting their evaluation. Oral contrast extends to the proxi mal transverse colon Appendix: Normal as visualized. Urinary bladder: Normal. Genitourinary structures: Uterus is normal. Adnexa are normal. Osseous structures: There is a sclerotic area in the posterior right acetabulum. Sclerotic areas with in the S1 vertebral body scattered punctate densities are within the vertebral bodies of the lumbar s pine. There is a sclerotic area within the right lower thoracic spine additional scattered punctate a reas are within the mid and upper thoracic spine. Sclerotic metastasis should be considered. IMPRESSIONS: 1. Scattered sclerotic areas are stable from the most recent comparison January 12. 2. Stable or resolving punctate nodules.
== END | disposition home or self-care (01) ==
LOC: RADNMMAIN 10:47
PROVIDERS: ATTEND Internal Medicine Hematology & Oncology
DX: C50.911 Malignant neoplasm of unspecified site of right female breast (principal); C79.51 Secondary malignant neoplasm of bone; D72.819 Decreased white blood cell count, unspecified; J90 Pleural effusion, not elsewhere classified; R91.8 Other nonspecific abnormal finding of lung field
CPT/HCPCS: 82565; 84520; 71260; 74177; 36415; 78306; A9503; Q9967

== ENCOUNTER → 2022-12-29 | Outpatient (CLI) | payer MEDICARE ==
[2022-12-29 11:49] LABS: African American GFR (CKD) >90 (>60 ml/min/1.73 sqM); Blood Urea Nitrogen 19 mg/dL (7-17); Non-African American GFR(CKD) >90 (>60 ml/min/1.73 sqM)
--- NOTE | 2022-12-29 15:03 | NM ---
EXAMINATION TYPE: NM bone scan whole body DATE OF EXAM: 12/29/2022 2:55 PM CLINICAL INDICATION:Female, 72 years old with history of C50.911 breast ca; COMPARISON: CT 12/29/2022 TECHNIQUE: Intravenous administration 22.8 mCi Tc 99m MDP followed by multiple scintigraphic images o f the appendicular and axial skeleton. Images acquired 3 hours post injection. FINDINGS: Subtle uptake within the T12 vertebrae with this felt to have corresponding uptake on this examinatio n. There is focal uptake within the left sternum felt to be on a degenerative basis. There is increased uptake within the bilateral shoulder, sternoclavicular, and sacroiliac joints con sistent with degenerative changes. No other photopenic areas or areas of increased activity are ident ified. Physiologic radiotracer activity is demonstrated in the kidneys and bladder. IMPRESSION: Focus of uptake within the T12 vertebrae which is felt to correlate with CT finding of sclerosis. Fin dings suggestive of active osteoblastic activity which may represent active metastatic disease.
--- NOTE | 2022-12-31 22:03 | CT ---
EXAMINATION TYPE: CT ChestAbdPelvis w con DATE OF EXAM: 12/29/2022 COMPARISON: 07/31/2022, 07/31/2022 HISTORY: 72-year-old female C50.911, Hx breast ca, bone mets TECHNIQUE: Contiguous axial scanning of the chest, abdomen, pelvis performed with IV Contrast, patien t injected with 100 mL of Isovue 300. Delayed images through the kidneys were obtained. Coronal/sagit lilian reconstructions performed. CT DLP: 568 mGycm Automated exposure control for dose reduction was used. FINDINGS: CHEST: Heart normal size without pericardial effusion. Mild LAD and RCA coronary calcifications are present. Aorta normal caliber with bovine configuration to the aortic arch. Unchanged 1.6 cm hypodense nodule left lobe of the thyroid gland. Postsurgical change of right mastectomy and right axillary node dissection. No thoracic lymphadenopat hy by CT size criteria. Some scattered subpleural reticular change anterior right upper lobe suggesting post radiation therap y change. Some strandy groundglass of the right apex also remains unchanged. No new or enlarging suspicious pulmonary nodule is identified. No consolidation or pleural effusion. ABDOMEN: No focal liver lesion or biliary ductal dilatation. Portal venous system is patent. Gallbladder, adrenal glands, spleen, and pancreas within normal limits. Scattered small bilateral renal cortical cysts measuring up to 1.1 cm. There is symmetric uptake and excretion of contrast from both kidneys. Retroaortic left renal vein. No dilated small bowel, free fluid, or free air. No mesenteric or retroperitoneal lymphadenopathy. Normal appendix. Oral contrast progressed to the rectum. No significant stool burden. No pericolonic inflammatory change. PELVIS: Bladder partially distended. Uterus anteverted. Both ovaries are visualized. No abnormal fluid collec tion the pelvis or pelvic lymphadenopathy. BONES: Numerous scattered sclerotic foci throughout the pelvis, sacrum, spine, and scattered through some of the anterior ribs remain unchanged back to at least 07/31/2022. IMPRESSION: STATUS POST RIGHT MASTECTOMY AND RIGHT AXILLARY NODE DISSECTION. ASIDE FOR THE PRESENCE OF STABLE SCL EROTIC OSSEOUS METASTATIC DISEASE, NO EVIDENCE FOR DISEASE PROGRESSION.
== END | disposition home or self-care (01) ==
LOC: RADNMMAIN 10:04
PROVIDERS: ATTEND Internal Medicine Hematology & Oncology
DX: C79.51 Secondary malignant neoplasm of bone (principal); C50.911 Malignant neoplasm of unspecified site of right female breast; D72.819 Decreased white blood cell count, unspecified; J90 Pleural effusion, not elsewhere classified; E11.9 Type 2 diabetes mellitus without complications; R59.0 Localized enlarged lymph nodes; Z90.11 Acquired absence of right breast and nipple
CPT/HCPCS: 82565; 84520; 71260; 74177; 36415; 78306; A9503; Q9967

== ENCOUNTER → 2023-09-26 | Outpatient (CLI) | payer MEDICARE ==
[2023-09-26 11:23] LABS: African American GFR (CKD) >90 (>60 ml/min/1.73 sqM); Blood Urea Nitrogen 15 mg/dL (7-17); Non-African American GFR(CKD) >90 (>60 ml/min/1.73 sqM)
--- NOTE | 2023-09-26 16:31 | NM ---
EXAMINATION TYPE: NM bone scan whole body DATE OF EXAM: 09/26/2023 COMPARISON: 12/29/2022 CLINICAL INDICATION: Female, 73 years old with history of D72.819 Leukopenia, C50.911 Breast ca, C79. 51 Bone mets, J90; TECHNIQUE: Delayed whole-body scanning was performed following the injection of 24.4 mCi Tc 99m MDP. Images acquired 3 hours post injection. FINDINGS: Slight increased uptake T12 vertebral body. Uptake within the left greater than right medial clavicul ar heads. Stable to slight increased activity along a couple anterior rib ends. Findings may indicate slight interval disease progression. IMPRESSION: A few scattered foci including T12, the medial clavicular heads, and a couple anterior rib ends are e ither stable or slightly increased and may indicate slight interval disease progression.
== END | disposition home or self-care (01) ==
LOC: RADNMMAIN 10:17
PROVIDERS: ATTEND Internal Medicine Hematology & Oncology
DX: C50.911 Malignant neoplasm of unspecified site of right female breast (principal); C79.51 Secondary malignant neoplasm of bone; D72.819 Decreased white blood cell count, unspecified; J90 Pleural effusion, not elsewhere classified
CPT/HCPCS: 82565; 84520; 71260; 74177; 36415; 78306; A9503; Q9967

== ENCOUNTER → 2024-05-06 | Outpatient (CLI) | payer MEDICARE ==
[2024-05-06 12:24] LABS: African American GFR (CKD) >90 (>60 ml/min/1.73 sqM); Blood Urea Nitrogen 16 mg/dL (7-17); Non-African American GFR(CKD) >90 (>60 ml/min/1.73 sqM)
--- NOTE | 2024-05-06 14:15 | CT ---
EXAMINATION TYPE: CT ChestAbdPelvis w con DATE OF EXAM: 05/06/2024 COMPARISON: 09/26/2023 HISTORY: 6 Month f/u for Leukopenia, breast ca, bone mets. CT DLP: 666.4 mGycm Automated exposure control for dose reduction was used. CONTRAST: CT scan of the chest, abdomen and pelvis is performed with Oral Contrast and with IV Contrast, patien t injected with 100cc mL of Isovue 300. FINDINGS: CT chest: There are a few scattered stable micronodules. There is stable mild focal area of groundglass/interst itial density in the right upper lobe. There is no airspace consolidation. There is no pleural effusion, pleural thickening or pneumothorax. The great vessels and chest are normal there is no mediastinal, hilar or axillary adenopathy. There is right mastectomy and lymphadenectomy involving the right axilla. There are multiple sclerotic densities within the thoracic spine largest of which is T12 with multipl e additional tinier sclerotic densities scattered throughout the thoracic spine and sternum. There ar e no pathological fractures. CT abdomen and pelvis: Gallbladder is normal without distention, pericholecystic fluid, wall thickening or gallstone. There is no biliary ductal dilatation. There is no focal mass or organomegaly involving the liver, pancreas, spleen or adrenal glands.. There is no solid renal mass or hydronephrosis. There is no retroperitoneal adenopathy or hemorrhage in the caliber of the abdominal aorta is normal. The bowel loops are normal in caliber and there is no dilatation or obstruction. No inflammatory doherty ges identified in the bowel wall and mesentery. There is no free intracranial air or fluid. There is no pelvic mass or adenopathy. There is no free fluid within the pelvis. There are multiple sclerotic areas within the lumbar spine and the largest of which is in L5 smaller additional sclerotic lesions are seen within the L3, L4 forward on S1 as well as within the left pubi c bone and right femur. There are no pathological fractures. IMPRESSION: 1. Stable micronodules within the lung parenchyma. No evidence of metastatic disease to the lungs. 2. Stable sclerotic metastatic disease within the bony thorax. 3. No acute cardiopulmonary disease for no acute changes within the abdomen or pelvis. 5. Stable sclerotic bone metastasis in the lumbar spine and pelvis. [facility], , 05/06/2024 2:12 PM
--- NOTE | 2024-05-06 15:50 | NM ---
EXAMINATION TYPE: NM bone scan whole body DATE OF EXAM: 05/06/2024 COMPARISON: CT chest abdomen and pelvis 05/06/2024 HISTORY: Breast cancer Delayed whole-body scanning was performed following the injection of 24 mCi Tc 99m MDP. Images were acquired 3 hours post injection. FINDINGS: There is focal uptake within the T12 vertebral level. Metastatic disease is not excluded. Differentia l would include degenerative change. Plain film evaluation of the thoracolumbar spine with attention to T12 would be useful. Very subtle uptake in the T12 vertebral body may be present. Some mild uptake in the anterior right mid rib may be present and may correlate with some sclerosis i dentified on CT examination. There is some uptake at the left sternoclavicular junction likely degenerative in nature. IMPRESSION: 1. Uptake in the T12 level. This could correlate with the sclerotic metastasis on CT. 2. Subtle uptake along the anterior mid right rib and within the L5 vertebral body may also be presen t. [facility], , 05/06/2024 3:47 PM
== END | disposition home or self-care (01) ==
LOC: RADNMMAIN 10:52
PROVIDERS: ATTEND Internal Medicine Hematology & Oncology
DX: C50.911 Malignant neoplasm of unspecified site of right female breast (principal); D72.819 Decreased white blood cell count, unspecified; J90 Pleural effusion, not elsewhere classified; C79.51 Secondary malignant neoplasm of bone; E11.9 Type 2 diabetes mellitus without complications
CPT/HCPCS: 82565; 84520; 71260; 74177; 36415 ×2; 78306; A9503; Q9967

== ENCOUNTER 2024-07-27 15:19 | Emergency (ER) | payer MEDICARE ==
[2024-07-27 15:39] VITALS: TEMP 98.7
--- NOTE | 2024-07-27 16:17 | ED ---
Female Urogenital HPI - General Chief complaint: Urogenital Stated complaint: burning and pain when urinating Time Seen by Provider: 07/27/24 15:35 Source: patient, RN notes reviewed Mode of arrival: ambulatory Limitations: no limitations - History of Present Illness Initial comments: This is a 74-year-old female with history of DM and breast cancer presenting with ongoing urinary symptoms x 2 weeks. Patient endorses ongoing UTI symptoms for the past several months receiving an unknown antibiotic last month with minimal relief. States she visited her PCP who prescribed 10 days of Diflucan with minimal relief. Endorses dysuria, increased frequency, bladder pressure, fatigue and weakness despite interventions thus far. Denies fever, chills, chest pain, dyspnea, N/V/D, hematuria. MD Complaint: dysuria Onset/Timin -: week(s) - Related Data Home Medications Medication Instructions Recorded Confirmed Anastrozole 1 mg PO DAILY 10/16/19 03/06/20 Previous Rx's Medication Instructions Recorded metFORMIN HCL [Glucophage] 850 mg PO AC-BID 30 Days #60 tablet 08/23/19 Ciprofloxacin HCl [Cipro] 250 mg PO Q12HR 5 Days #10 tab 03/08/20 Fluconazole [Diflucan] 100 mg PO DAILY 7 Days #7 tab 03/08/20 HYDROcodone/APAP 5-325MG [[place] 1 tab PO Q6HR PRN 3 Days #12 tab 03/08/20 5-325] Ciprofloxacin HCl [Cipro] 500 mg PO Q12HR #20 tablet 07/27/24 Allergies Allergy/AdvReac Type Severity Reaction Status Date / Time Sulfa (Sulfonamide Allergy Rash/Hives, Verified 07/27/24 15:39 Antibiotics) swelling, rapid heart rate Review of Systems ROS Statement: Those systems with pertinent positive or pertinent negative responses have been documented in the HPI. ROS Other: All systems not noted in ROS Statement are negative. Past Medical History Past Medical History: Cancer, Diabetes Mellitus Additional Past Medical History / Comment(s): Chronic UTI, Right Breast CA, fistula stool coming into vaginal area, seeing Dr Napoles, admitted with DKA 08/18/2019--new onset diabetes History of Any Multi-Drug Resistant Organisms: None Reported Past Surgical History: Breast Surgery, Orthopedic Surgery Additional Past Surgical History / Comment(s): right breast mastectomy, left femur surgery Past Anesthesia/Blood Transfusion Reactions: No Reported Reaction Past Psychological History: No Psychological Hx Reported Smoking Status: Never smoker Past Alcohol Use History: None Reported Past Drug Use History: None Reported - Past Family History Father Family Medical History: Congestive Heart Failure (CHF), CVA/TIA, Diabetes Mellitus, Myocardial Infarction (AL) Mother Family Medical History: Congestive Heart Failure (CHF), Diabetes Mellitus, Hyperlipidemia, Hypertension, Myocardial Infarction (AL) General Exam Limitations: no limitations General appearance: alert, in no apparent distress Head exam: Present: atraumatic, normocephalic, normal inspection Eye exam: Present: normal appearance, PERRL, EOMI. Absent: scleral icterus, conjunctival injection, periorbital swelling ENT exam: Present: normal exam, mucous membranes moist Neck exam: Present: normal inspection. Absent: tenderness, meningismus, lymphadenopathy Respiratory exam: Present: normal lung sounds bilaterally. Absent: respiratory distress, wheezes, rales, rhonchi, stridor Cardiovascular Exam: Present: regular rate, normal rhythm, normal heart sounds. Absent: systolic murmur, diastolic murmur, rubs, gallop, clicks GI/Abdominal exam: Present: soft, normal bowel sounds. Absent: distended, tenderness, guarding, rebound, rigid Extremities exam: Present: normal inspection, full ROM, normal capillary refill. Absent: tenderness, pedal edema, joint swelling, calf tenderness Back exam: Present: normal inspection. Absent: CVA tenderness (R), CVA tenderness (L) Neurological exam: Present: alert, oriented X3, CN II-XII intact Psychiatric exam: Present: normal affect, normal mood Skin exam: Present: warm, dry, intact, normal color. Absent: rash Course Vital Signs 07/27/24 07/27/24 15:35 17:52 Temperature 98.7 F Pulse Rate 107 H 95 Respiratory 20 16 Rate Blood Pressure 157/71 159/86 O2 Sat by Pulse 98 97 Oximetry Medical Decision Making - Medical Decision Making Was pt. sent in by a medical professional or institution (, INDY, DATABASE DBA, urgent care, hospital, or [place] health care facility...) When possible be specific @ -No Did you speak to anyone other than the patient for history (EMS, parent, family, police, friend...)? What history was obtained from this source @ -No Did you review nursing and triage notes (agree or disagree)? Why? @ -I reviewed and agree with nursing and triage notes Were old charts reviewed (outside hosp., previous admission, EMS record, old EKG, old radiological studies, urgent care reports/EKG's, [place] health care facility records)? Report findings @ -No old charts were reviewed Differential Diagnosis (chest pain, altered mental status, abdominal pain women, abdominal pain men, vaginal bleeding, weakness, fever, dyspnea, syncope, headache, dizziness, GI bleed, back pain, seizure, CVA, palpatations, mental health, musculoskeletal)? @ -Differential Abdominal Pain Women: Appendicitis, Cholecystitis, diverticulosis, ischemic bowel, pancreatitis, hepatitis, UTI, gastroenteritis, AAA, incarcerated hernia, bowel obstruction, constipation, inflammatory bowel, hepatitis, peptic ulcer disease, splenic infarction, perforated viscus, vulvitis, ovarian torsion, PID, kidney stone, placenta abruption, this is not meant to be an all-inclusive list EKG interpreted by me (3pts min.). @ -Not done X-rays interpreted by me (1pt min.). @ -None done CT interpreted by me (1pt min.). @ -None done U/S interpreted by me (1pt. min.). @ -None done What testing was considered but not performed or refused? (CT, X-rays, U/S, labs)? Why? @ -None What meds were considered but not given or refused? Why? @ -None Did you discuss the management of the patient with other professionals (professionals i.e. , PA, DATABASE DBA, lab, RT, psych nurse, social services technician, ore dryer, teacher, sanitation officer, high risk case manager)? Give summary @ -No Was smoking cessation discussed for >3mins.? @ -No Was critical care preformed (if so, how long)? @ -No Were there social determinants of health that impacted care today? How? (Homelessness, low income, unemployed, alcoholism, drug addiction, transportation, low edu. Level, literacy, decrease access to med. care, half-way, rehab)? @ -No Was there de-escalation of care discussed even if they declined (Discuss DNR or withdrawal of care, Hospice)? DNR status @ -No What co-morbidities impacted this encounter? (DM, HTN, Smoking, COPD, CAD, Cancer, CVA, ARF, Chemo, Hep., AIDS, mental health diagnosis, sleep apnea, morbid obesity)? @ -DM Was patient admitted / discharged? Hospital course, mention meds given and route, prescriptions, significant lab abnormalities, going to OR and other pertinent info. @ -Lab work shows indications of UTI with moderate blood, glycosuria and minor ketonuria. [id number]-[id number] glucose 213. Patient provided IV Rocephin and p.o. ciprofloxacin with remaining ciprofloxacin regimen sent to patient's pharmacy. Advised follow-up with PCP/urology for any ongoing or worsening symptoms. Undiagnosed new problem with uncertain prognosis? @ -No Drug Therapy requiring intensive monitoring for toxicity (Heparin, Nitro, Insulin, Cardizem)? @ -No Were any procedures done? @ -No Diagnosis/symptom? @ -Urinary tract infection Acute, or Chronic, or Acute on Chronic? @ -Acute Uncomplicated (without systemic symptoms) or Complicated (systemic symptoms)? @ -Complicated Side effects of treatment? @ -No Exacerbation, Progression, or Severe Exacerbation? @ -No Poses a threat to life or bodily function? How? (Chest pain, [place], AL, pneumonia, PE, COPD, DKA, ARF, appy, cholecystitis, CVA, Diverticulitis, Homicidal, Suicidal, threat to staff... and all critical care pts) @ -No - Lab Data Lab Results 07/27/24 07/27/24 Range/Units 15:58 17:25 POC Glucose (mg/dL) 213 H (70-110) mg/dL POC Glu Engine Manager ID Cowan Ryan Urine Color Yellow Urine Appearance Cloudy H (Clear) Urine pH 5.0 (5.0-8.0) Ur Specific [place] 1.024 (1.001-1.035) Urine Protein Trace H (Negative) Urine Glucose (UA) 4+ H (Negative) Urine Ketones 1+ H (Negative) Urine Blood Moderate H (Negative) Urine Nitrite Negative (Negative) Urine Bilirubin Negative (Negative) Urine Urobilinogen <2.0 (<2.0) mg/dL Ur Leukocyte Esterase Large H (Negative) Urine RBC 43 H (0-5) /hpf Urine WBC >182 H (0-5) /hpf Urine WBC Clumps Occasional H (None) /hpf Ur Squamous Epith Cells 2 (0-4) /hpf Urine Bacteria Rare H (None) /hpf Urine Mucus Rare H (None) /hpf Urine Yeast (Budding) Many H (None) /hpf Disposition Clinical Impression: UTI (urinary tract infection) Disposition: HOME SELF-CARE Condition: Good Instructions (If sedation given, give patient instructions): Urinary Tract Infection in Women (ED) Additional Instructions: Increase water and cranberry juice intake. Follow-up with urology for any ongoing symptoms Prescriptions: Ciprofloxacin HCl [Cipro] 500 mg PO Q12HR #20 tablet Is patient prescribed a controlled substance at d/c from ED?: No Referrals: Bridgette Chapman MD [Primary Care Provider] - 1-2 days Dillon Napoles MD [STAFF PHYSICIAN] - 1-2 days Time of Disposition: 17:01
[2024-07-27 16:29] LABS: Appearance,Urine Cloudy (Clear); Bacteria,Urine Rare /hpf; Bilirubin,Urine Negative (Negative); Blood,Urine Moderate (Negative); Budding Yeast,Urine Many /hpf; Color,Urine Yellow; Glucose,Urine (UA) 4+ (Negative); Ketones,Urine 1+ (Negative); Leukocyte Esterase,Urine Large (Negative); Mucus,Urine Rare /hpf; Nitrite,Urine Negative (Negative); Protein,Urine Trace (Negative); RBC,Urine 43 /hpf (0-5); Specific Gravity,Urine 1.024 (1.001-1.035); Squamous Epithelial Cell,Urine 2 /hpf (0-4); Urobilinogen,Urine <2.0 mg/dL (<2.0); WBC,Urine >182 /hpf (0-5)
[2024-07-27] MEDS ORDERED: cefTRIAXone 2 GM VIAL IM STA (16:55)
[2024-07-27] MEDS: CIPROFLOXACIN HCL 500 MG TAB PO STA (17:20)
[2024-07-27 17:27] LABS: Glucose,Whole Blood 213 mg/dL (70-110)
[2024-07-27 17:53] VITALS: BP 159/86; PULSE 95; RESP 16
== END 2024-07-27 18:00 | disposition home or self-care (01) ==
LOC: EC 15:19
DX: N39.0 Urinary tract infection, site not specified (principal); E11.9 Type 2 diabetes mellitus without complications; Z88.2 Allergy status to sulfonamides
CPT/HCPCS: 36415; 81001; 87086; 99283; 96365; J0696